=== PATIENT | male | born 1940 | race Caucasian/White ===

== ENCOUNTER 2016-04-01 18:15 | Observation (INO) | payer OTHER ==
[~2016-04-01] VITALS: Ht 182.9 cm; Wt 98.4 kg
[~2016-04-01 18:15] MED LIST changes: -CETI10TA84 PO; -FINA5TAB PO; -LOSA50TA6 PO; -SPRIN/30 INH
[2016-04-01 19:19] LABS: BASO % 0.4 %; BASO ABS # 0.04 K/uL (0-0.2); COMPLETE YES; EOS % 3.7 %; HEMATOCRIT 45.5 % (42-52); IG% 0.2 %; LYMPH ABS # 1.27 K/uL (1.2-3.4); MEAN CELL VOLUME 95.6 fL (80-100); MEAN CORPUSCULAR HEMOGLOBIN 32.1 pg (25-34); MEAN CORPUSCULAR HGB CONC 33.6 g/dl (32-36); MEAN PLATELET VOLUME 10.4 fL (7.4-10.4); MONO % 11.5 %; NEUT % 70.2 %; PLATELET COUNT 156 K/uL (130-400); RED BLOOD COUNT 4.76 M/uL (4.7-6.1); WHITE BLOOD COUNT 9.07 K/uL (4.8-10.8)
[2016-04-01] MEDS ORDERED: CETI10TA84 PO (19:20)
[2016-04-01] MEDS ORDERED: SPRIN/30 INH (19:20)
[2016-04-01] MEDS ORDERED: LOSA50TA6 PO (19:20)
[2016-04-01] MEDS ORDERED: FINA5TAB PO (19:20)
[2016-04-01 19:32] LABS: INR 1.1 (0.9-1.1); PARTIAL THROMBOPLASTIN RATIO 1.1; PROTHROMBIN TIME (PATIENT) 11.4 SECONDS (9.0-12.0)
[2016-04-01 19:57] LABS: ALKALINE PHOSPHATASE 79 U/L (45-117); ALT/SGPT 32 U/L (12-78); BLOOD UREA NITROGEN 25 mg/dl (7-18); BUN/CREATININE RATIO 17.6 (10-20); CALCIUM 8.7 mg/dl (8.5-10.1); CARBON DIOXIDE 24 mmol/L (21-32); CHLORIDE 110 mmol/L (98-107); GLUCOSE 82 mg/dl (70-99); SODIUM 143 mmol/L (136-145)
[2016-04-01 20:57] LABS: POTASSIUM 4.3 mmol/L (3.5-5.1)
[2016-04-01] MEDS ORDERED: ALUMINUM/MAGNESIUM/SIMETH (MAALOX MAX) 30 ML UDC PO PRN (21:15)
[2016-04-01] MEDS ORDERED: NITROGLYCERIN 0.4 MG SL PER TAB CHARGE SL PRN (21:15)
[2016-04-01] MEDS ORDERED: ONDANSETRON INJ 2 MG/ML 2 ML VIAL IV PRN (21:15)
[2016-04-01] MEDS ORDERED: ACETAMINOPHEN 325 MG TAB PO PRN (21:15)
[2016-04-01] MEDS ORDERED: MoRPHine SULFATE 2 MG/ML CARP IV PRN (21:15)
[2016-04-01] MEDS ORDERED: GI COCKTAIL PO SCH (21:15)
[2016-04-01] MEDS ORDERED: MAGNESIUM HYDROXIDE SUSP 30 ML UDC PO PRN (21:15)
--- NOTE | 2016-04-01 21:53 | EMERGENCY ROOM VISIT NOTE ---
History Report prepared by Vasyl: Gloria Jarquin Under the Supervision of: Dr. Mike Viera M.D. First contact with patient: 18:36 Chief Complaint: ABNORMAL DIAGNOSTIC TESTING Stated Complaint: ABNORMAL EKG History of Present Illness The patient is a 75 year old male who presents to the Emergency Room with complaints of worsening fatigue that started last night. He is accompanied by his . He saw his PCP earlier today and had an abnormal EKG and was referred to the ED for further evaluation. He states "I seem to have lost all my power" noting he feels extremely weak. This morning the patient woke up around 0500 and fed his cat. He then went back to bed and fell asleep until his awoke around 0800, which he states is unusual for him. He also complains of shortness of breath, chest discomfort and bilateral shoulder pain. He describes the chest pain as feeling like "indigestion" and burning. He denies the chest pain being worsened by exertion or eating, or being accompanied by diaphoresis. He notes he had his neck fused several years ago but complains of bilateral shoulder pain. He states that he has had problems with his shoulders in the past and it is separate from his chest pain. He denies any dysuria, hematuria, melena or hematochezia. His states he has been coughing a lot recently and the patient complains of a sore throat. The patient does have a history of a previous IA and reports he has had cardiac stents placed in the past. Source of History: patient, spouse/significant other () Onset: last night Position: other (global) Quality: other (dyspnea) Timing: worsening Associated Symptoms: + SOB, + chest pain, + cough, + sorethroat, No abdominal pain, No diaphoresis, No hematochezia, No melena, No urinary symptoms Review of Systems See HPI for pertinent positives & negatives. A total of 10 systems reviewed and were otherwise negative. Past Medical & Surgical Medical Problems: (1) Chest pain (2) Electrocardiogram abnormal (3) History of IA (myocardial infarction) Surgical Problems: (1) History of heart artery stent Social History Smoking Status: Former Smoker Alcohol Use: none Drug Use: none Marital Status: Housing Status: lives with family Occupation Status: employed Current/Historical Medications Scheduled Aspirin Enteric Coated (Ecotrin Or Generic), 81 MG PO DAILY Atorvastatin (Lipitor), 80 MG PO DAILY Cetirizine (Zyrtec), 10 MG PO DAILY Finasteride (Proscar), 5 MG PO DAILY Fish Oil ([place]-3), 1 CAP PO DAILY Gabapentin (Neurontin), 200 MG PO HS Losartan Potassium (Cozaar), 50 MG PO DAILY Metoprolol Succ (Toprol Xl) (Toprol-Xl ), 100 MG PO HS Multivitamin (Multivitamin), 1 TAB PO DAILY Nitroglycerin (Nitrostat), 0.3 MG UT PRN Omeprazole (Prilosec), 20 MG PO DAILY Tiotropium [place] (Spiriva Handihaler), 1 CAP INH DAILY Allergies Coded Allergies: No Known Allergies (Unverified , 04/01/16) Physical Exam Vital Signs Date Time Temp Pulse Resp B/P Pulse Ox O2 Delivery O2 Flow Rate FiO2 04/01/16 20:09 94 Room Air 04/01/16 20:06 59 20 147/88 93 Room Air 04/01/16 19:19 62 04/01/16 18:33 36.7 60 20 185/82 92 Room Air Physical Exam Constitutional: Vital signs reviewed. Eyes: Pupils are equal round reactive to light. Conjunctiva are noninjected. ENT: Pharynx is clear without erythema or exudate. Mucous membranes are moist. Neck supple without meningeal signs. Respiratory: Clear to auscultation bilaterally. Breath sounds are equal bilaterally. Cardiovascular: Regular rate and rhythm. No rubs or gallops. GI: Soft, nondistended and nontender. Bowel sounds are present. Musculoskeletal: No peripheral edema. No lower extremity tenderness. Integumentary: No cyanosis. Neurological: The patient is awake and alert. No focal deficits. Psychiatric: Normal affect. Medical Decision & Procedures Laboratory Results 04/01/16 19:00 Red Blood Count 4.76, Mean Corpuscular Volume 95.6, Mean Corpuscular Hemoglobin 32.1, Mean Corpuscular Hemoglobin Concent 33.6, Mean Platelet Volume 10.4, Neutrophils (%) (Auto) 70.2, Lymphocytes (%) (Auto) 14.0, Monocytes (%) (Auto) 11.5, Eosinophils (%) (Auto) 3.7, Basophils (%) (Auto) 0.4, Neutrophils # (Auto ) 6.36, Lymphocytes # (Auto) 1.27, Monocytes # (Auto) 1.04, Eosinophils # (Auto ) 0.34, Basophils # (Auto) 0.04 04/01/16 19:00 04/01/16 20:32 Test 04/01/16 19:00 04/01/16 19:09 04/01/16 20:32 04/01/16 21:09 White Blood Count 9.07 K/uL (4.8-10.8) Red Blood Count 4.76 M/uL (4.7-6.1) Hemoglobin 15.3 g/dL (14.0-18.0) Hematocrit 45.5 % (42-52) Mean Corpuscular Volume 95.6 fL (80-100) Mean Corpuscular Hemoglobin 32.1 pg (25-34) Mean Corpuscular Hemoglobin Concent 33.6 g/dl (32-36) Platelet Count 156 K/uL (130-400) Mean Platelet Volume 10.4 fL (7.4-10.4) Neutrophils (%) (Auto) 70.2 % Lymphocytes (%) (Auto) 14.0 % Monocytes (%) (Auto) 11.5 % Eosinophils (%) (Auto) 3.7 % Basophils (%) (Auto) 0.4 % Neutrophils # (Auto) 6.36 K/uL (1.4-6.5) Lymphocytes # (Auto) 1.27 K/uL (1.2-3.4) Monocytes # (Auto) 1.04 K/uL (0.11-0.59) Eosinophils # (Auto) 0.34 K/uL (0-0.5) Basophils # (Auto) 0.04 K/uL (0-0.2) RDW Standard Deviation 47.2 fL (36.4-46.3) RDW Coefficient of Variation 13.5 % (11.5-14.5) Immature Granulocyte % (Auto) 0.2 % Immature Granulocyte # (Auto) 0.02 K/uL (0.00-0.02) Prothrombin Time 11.4 SECONDS (9.0-12.0) Prothromb Time International Ratio 1.1 (0.9-1.1) Activated Partial Thromboplast Time 29.2 SECONDS (21.0-31.0) Partial Thromboplastin Ratio 1.1 Anion Gap 9.0 mmol/L (3-11) Est Creatinine Clear Calc Drug Dose 54.6 ml/min Estimated GFR () 56.2 Estimated GFR (Non- 48.5 BUN/Creatinine Ratio 17.6 (10-20) Calcium Level 8.7 mg/dl (8.5-10.1) Total Bilirubin 0.5 mg/dl (0.2-1) Alanine Aminotransferase (ALT/SGPT) 32 U/L (12-78) Alkaline Phosphatase 79 U/L (45-117) Total Protein 7.0 gm/dl (6.4-8.2) Albumin 3.5 gm/dl (3.4-5.0) Bedside Troponin I 0.000 ng/ml (0-0.045) Direct Bilirubin 0.1 mg/dl (0-0.2) Aspartate Amino Transf (AST/SGOT) 28 U/L (15-37) Laboratory results as reviewed by me. ECG Indication: back/shoulder pain, weakness Rate (beats per minute): 61 Rhythm: normal sinus (normal sinus rhythm) Findings: T-wave inversion (Lateral), no ectopy Comparison ECG Date: Previous EKG performed in February 2011 showed T wave inversions in AVL ED Course 1841: The patient was evaluated in room B4B. A complete history and physical exam was performed. 1934: I reevaluated the patient. He is resting comfortably. I discussed my plan for him to remain in the hospital for further evaluation and management and he verbalized complete understanding and agreement. 1942: I discussed the patient's case with Dr. Mtz, [facility] [place] Hospitalist. The patient will be further evaluated. Medical Decision This is a 75-year-old male who presents with increased shortness of breath, chest discomfort and an abnormal EKG. Differential diagnosis includes unstable angina, IA, GERD, anemia, pleurisy. I did perform a limited focused review of portions of the patient's old chart on the electronic medical record. The patient had a chest X-Ray at 1630 today. It was unremarkable. I did evaluate the patient as noted above. The patient is presenting here with increased shortness of breath and chest discomfort. He states the chest discomfort as a burning sensation which she has intermittently for about a week. Last time he had this chest discomfort was just prior to arrival here. He is currently not having any symptoms. IV access was established. The patient was placed on a continuous child monitor. I did order and personally review the patient's 12-lead EKG and chest x-ray as described above. He does appear to have T-wave inversions in the lateral and high lateral leads. These are new when comparing this to the old EKG. I did order and review the patient' s blood work as noted in the electronic medical record. Troponin is negative. I did discuss the test results with the patient and his . I did recommend hospitalization for repeat cardiac enzymes given his symptoms and cardiac history. I did discuss the case with the hospitalist and case consultant. Consults Time Called: 1939 Consulting Physician: Dr. Mtz, [facility] [place] Hospitalist Returned Call: 1942 I discussed the patient's case with Dr. Mtz, [facility] [place] Hospitalist. The patient will be further evaluated. Impression Primary Impression: Acute chest pain Additional Impression: Abnormal EKG Scribe Attestation The scribe's documentation has been prepared under my direct and personally reviewed by me in its entirety. I confirm that the note above accurately reflects all work, treatment, procedures, and medical decision making performed by me. Departure Information Dispostion Being Evaluated By Hospitalist Referrals Arvidn Stern M.D. (PCP) Patient Instructions [facility] Problem Qualifiers
[2016-04-01] MEDS ORDERED: ALUMINUM/MAGNESIUM SUSP 18 ML, LIDOCAINE HCL 2% VISCOUS SOLN 6 ML, BARCODE IDENTIFIER 1 EA PO STA ×2 (22:07)
[2016-04-01] MEDS ORDERED: AZITHROMYCIN IV 500 MG in DEXTROSE 5% 250ML 250 ML IV STA (22:11)
[2016-04-01 22:16] VITALS: BP 166/87; PULSE 63; TEMP 36.7; O2SAT 93; Ht 182.9 cm; Wt 98.4 kg
[2016-04-01] MEDS: GUAIFENESIN 200 MG TAB PO SCH (22:40)
[2016-04-01] MEDS: NITROGLYCERIN OINT 2% 1GM PACKET EXT SCH (22:40)
[2016-04-01] MEDS ORDERED: IV FLUIDS COMPLETED PRN (23:45)
[2016-04-02] VITALS (8 sets, daily range): BP systolic 137–154; BP diastolic 81–88; PULSE 55–73; TEMP 35.9–36.5; O2SAT 90–95
[2016-04-02] MEDS: GUAIFENESIN 200 MG TAB PO SCH ×3 (00:50→10:00)
--- NOTE | 2016-04-02 03:11 | History and Physical ---
History & Physical Date & Time of Service: Apr 02, 2016 at 02:54 Chief Complaint: Chest Pain, Electrocardiogram Abnormal Primary Care Physician: Arvind Stern M.D. History of Present Illness Source: patient, family This is a 75 yo m that is presenting to us with epigastric discomfort and a significant CVS PMHx. He has a history of a stent in 2010. he was seen here and a stent was placed in the mid left circ. The LAD remained open at 50% and the mid RCA at 40%. His last echo was in 2011 and unknown when his last stress test was, he thinks two years prior. Today, he was suffering from an epigastric discomfort that did not radiate. He stated it felt like gas but he also has this ache like shoulder pain which is in bilat shoulder and intermittent. He has felt like he is slightly weaker than his BL. He denies any diaphoresis, fever, SOB, change in BM, syncope. he does note that he has a chronic cough but feels that he has increased yellow phlegm without hemoptysis. Because of his history it was decided that the patient would be admitted for chest pain evaluation. echo 2011: LV borderline dilation EF 50-55% Mild- mod ant hypokinesis mild inf hypokinesis Past Medical/Surgical History DE Cardiac stent placement Peripheral neuropathy Cervical fusion left knee arthroscopy COPD GERD Dyslipidemia Family History No pertinent family history Social History Smoking Status: Former Smoker Smokeless Tobacco Use: No Alcohol Use: none Drug Use: none Marital Status: Housing status: lives with family Occupational Status: employed Immunizations History of Influenza Vaccine: Yes Influenza Vaccine Date: Jan 09, 2011 History of Tetanus Vaccine?: Unknown History of Pneumococcal: Yes History of Hepatitis B Vaccine: No Multi-Drug Resistant Organisms History of MDRO: No Allergies Coded Allergies: No Known Allergies (Unverified , 04/01/16) Home Medications Scheduled Aspirin Enteric Coated (Ecotrin Or Generic), 81 MG PO DAILY Atorvastatin (Lipitor), 80 MG PO DAILY Cetirizine (Zyrtec), 10 MG PO DAILY Finasteride (Proscar), 5 MG PO DAILY Fish Oil ([place]-3), 1 CAP PO DAILY Gabapentin (Neurontin), 200 MG PO HS Losartan Potassium (Cozaar), 50 MG PO DAILY Metoprolol Succ (Toprol Xl) (Toprol-Xl ), 100 MG PO HS Multivitamin (Multivitamin), 1 TAB PO DAILY Nitroglycerin (Nitrostat), 0.3 MG UT PRN Omeprazole (Prilosec), 20 MG PO DAILY Tiotropium [place] (Spiriva Handihaler), 1 CAP INH DAILY Review of Systems Constitutional: No fever Eyes: No worsening of vision ENT: No hearing loss Respiratory: + cough, + sputum, No dyspnea at rest, No dyspnea on exertion, No shortness of breath, No wheezing Cardiovascular: + chest pain Abdomen: No constipation, No diarrhea, No nausea, No pain, No vomiting Musculoskeletal: No joint pain, No muscle pain Genitourinary - Male: No dysuria, No hematuria Neurologic: + weakness, No balance problems, No numbness/tingling Endocrine: + fatigue Integumentary: No rash Physical Exam Vital Signs Date Time Temp Pulse Resp B/P Pulse Ox O2 Delivery O2 Flow Rate FiO2 04/02/16 00:00 94 Room Air 04/01/16 22:16 36.7 63 20 166/87 93 Room Air 04/01/16 21:57 60 20 155/85 96 Room Air 04/01/16 20:09 94 Room Air 04/01/16 20:06 59 20 147/88 93 Room Air 04/01/16 19:19 62 04/01/16 18:33 36.7 60 20 185/82 92 Room Air General Appearance: WD/WN, no apparent distress Head: normocephalic, atraumatic Eyes: normal inspection ENT: normal ENT inspection Neck: supple Respiratory/Chest: no respiratory distress, no accessory muscle use, + decreased breath sounds, + pertinent finding (poor airmovement throughout, occasional wheeze) Cardiovascular: regular rate, rhythm, no murmur Abdomen/GI: normal bowel sounds, non tender, soft Back: normal inspection Extremities/Musculoskelatal: normal inspection, no calf tenderness, no pedal edema, + pertinent finding (decreased sensation to bilat LE which is BL for patient) Neurologic/Psych: alert Skin: normal color, warm/dry, no rash Lymphatic: no adenopathy Diagnostics Laboratory Results Results Past 24 Hours Test 04/01/16 19:00 04/01/16 19:09 04/01/16 20:32 04/01/16 21:55 Range/Units White Blood Count 9.07 4.8-10.8 K/uL Red Blood Count 4.76 4.7-6.1 M/uL Hemoglobin 15.3 14.0-18.0 g/dL Hematocrit 45.5 42-52 % Mean Corpuscular Volume 95.6 80-100 fL Mean Corpuscular Hemoglobin 32.1 25-34 pg Mean Corpuscular Hemoglobin Concent 33.6 32-36 g/dl Platelet Count 156 130-400 K/uL Mean Platelet Volume 10.4 7.4-10.4 fL Neutrophils (%) (Auto) 70.2 % Lymphocytes (%) (Auto) 14.0 % Monocytes (%) (Auto) 11.5 % Eosinophils (%) (Auto) 3.7 % Basophils (%) (Auto) 0.4 % Neutrophils # (Auto) 6.36 1.4-6.5 K/uL Lymphocytes # (Auto) 1.27 1.2-3.4 K/uL Monocytes # (Auto) 1.04 0.11-0.59 K/uL Eosinophils # (Auto) 0.34 0-0.5 K/uL Basophils # (Auto) 0.04 0-0.2 K/uL RDW Standard Deviation 47.2 36.4-46.3 fL RDW Coefficient of Variation 13.5 11.5-14.5 % Immature Granulocyte % (Auto) 0.2 % Immature Granulocyte # (Auto) 0.02 0.00-0.02 K/uL Prothrombin Time 11.4 9.0-12.0 SECONDS Prothromb Time International Ratio 1.1 0.9-1.1 Activated Partial Thromboplast Time 29.2 21.0-31.0 SECONDS Partial Thromboplastin Ratio 1.1 Sodium Level 143 136-145 mmol/L Potassium Level 4.3 3.5-5.1 mmol/L Chloride Level 110 98-107 mmol/L Carbon Dioxide Level 24 21-32 mmol/L Anion Gap 9.0 3-11 mmol/L Blood Urea Nitrogen 25 7-18 mg/dl Creatinine 1.40 0.60-1.40 mg/dl Est Creatinine Clear Calc Drug Dose 54.6 ml/min Estimated GFR () 56.2 Estimated GFR (Non- 48.5 BUN/Creatinine Ratio 17.6 10-20 Random Glucose 82 70-99 mg/dl Calcium Level 8.7 8.5-10.1 mg/dl Total Bilirubin 0.5 0.2-1 mg/dl Direct Bilirubin 0.1 0-0.2 mg/dl Aspartate Amino Transf (AST/SGOT) 28 15-37 U/L Alanine Aminotransferase (ALT/SGPT) 32 12-78 U/L Alkaline Phosphatase 79 45-117 U/L Total Protein 7.0 6.4-8.2 gm/dl Albumin 3.5 3.4-5.0 gm/dl Bedside Troponin I 0.000 0-0.045 ng/ml Procalcitonin < 0.05 0-0.5 ng/mL Diagnostic Radiology CHEST 2 VIEWS ROUTINE CLINICAL HISTORY: SOB COMPARISON STUDY: 11/10/2015 FINDINGS: The cardiac and mediastinal contours are normal. There is no evidence of focal pulmonary consolidation. There is no evidence of failure. No pleural effusions are visualized.[There is minor basilar atelectasis/scarring. IMPRESSION: No active disease in the chest. EKG NSR no ectopic beats T wave inversions in lateral leads Impression Assessment and Plan This is a 75 yo m that is presenting to us with chest pain which is concerning considering the patient's PMHx- DE with stent placement Chest pain NYD - trend troponin - tele admission - npo after midnight - stress echo - nitropaste EKG in am Acute on Chronic COPD exacerbation bacterial vs viral - axithro x1 dose - if procalcitonin <0.05 consider not continuing - cont Spiriva - Pulmicort, duonebs and Guaifenesin Hyper cholesterolemia - cont simvastatin BPH - cont finasteride Peripheral neuropathy - cont gabapentin HTN - cont metoprolol and losartan DVT Prophylaxis - SCD FULL CODE Advanced Directives Existing Living Will: Yes 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 Y/N: Yes Risk Level: Moderate Given or contraindicated: SCD's Social Service Consult None Apply Note Total Time: Critical Care 30 - 74 minutes Additional Copies To Arvind Stern M.D. Assessment and Plan Attending Addendum: I have physically seen and examined this patient, have directed their medical care, have supervised the medical residents activities, and agree with the H&P as noted above, with the following changes: NONE The patient is awake, well-developed and adequately nourished, alert and oriented 3, normocephalic and atraumatic, lying in bed and in no acute distress. HEENT--PERRL, EOMI, mucous membranes and oropharynx dry. Neck--supple, no JVD or bruits, thyroid normal, trachea midline, no adenopathy. Heart--normal S1 and S2, no extra beats, no murmurs, rubs or gallops. Lungs--clear bilaterally with good air movement, no respiratory distress, no accessory muscle use. Abdomen--normal bowel sounds and soft, nontender and nondistended, no hernias or masses, no organomegaly. Extremities--no cyanosis, clubbing or edema. There are good distal pulses b/l. Dermatologic--normal skin turgor, normal color, warm and dry, no abnormal lymph nodes, no rash. Neurologic--cranial nerves II through XII grossly intact, motor and sensory examination normal. Rheumatologic--normal range of motion, nontender, muscles and joints. Psychiatric--normal affect. Assessment and Plan: Coronary artery disease/history of coronary artery stent/hypertension/abnormal EKG--admitted to the telemetry unit, for serial cardiac enzymes, cardiac rhythm monitoring and a 2-D echocardiogram with Dopplers. Continue enteric-coated aspirin 81 mg by mouth daily, losartan 50 mg by mouth daily, metoprolol succinate 100 mg by mouth at bedtime, nitroglycerin sublingual when necessary, and add Nitropaste 1 inch to anterior chest wall every 6 hours. BPH--continue finasteride 5 mg by mouth daily. Hypercholesterolemia--continue atorvastatin 80 mg by mouth daily. GERD--continue omeprazole 20 mg by mouth daily. COPD--continue Spiriva HandiHaler 1 inhalation every morning. Continue gabapentin 200 mg by mouth at bedtime.
[2016-04-02] MEDS: NITROGLYCERIN OINT 2% 1GM PACKET EXT SCH ×2 (04:23→10:00)
[2016-04-02 06:29] LABS: HEMATOCRIT 43.6 % (42-52); MEAN CELL VOLUME 95.4 fL (80-100); MEAN CORPUSCULAR HEMOGLOBIN 32.2 pg (25-34); MEAN CORPUSCULAR HGB CONC 33.7 g/dl (32-36); MEAN PLATELET VOLUME 9.9 fL (7.4-10.4); PLATELET COUNT 126 K/uL (130-400); RED BLOOD COUNT 4.57 M/uL (4.7-6.1); WHITE BLOOD COUNT 8.48 K/uL (4.8-10.8)
[2016-04-02] MEDS: ALBUT/IPRATROP 3MG/0.5MG NEB 3 ML VIAL INH SCH ×2 (06:57→11:19)
[2016-04-02 07:02] LABS: BLOOD UREA NITROGEN 20 mg/dl (7-18); BUN/CREATININE RATIO 16.7 (10-20); CALCIUM 8.4 mg/dl (8.5-10.1); CARBON DIOXIDE 28 mmol/L (21-32); CHLORIDE 107 mmol/L (98-107); GLUCOSE 89 mg/dl (70-99); POTASSIUM 3.7 mmol/L (3.5-5.1); SODIUM 141 mmol/L (136-145)
[2016-04-02] MEDS ORDERED: BUDESONIDE 0.5 MG/2 ML VIAL (PULMICORT) INH SCH (08:00)
--- NOTE | 2016-04-02 08:04 | DIAGNOSTIC IMAGING REPORT ---
CHEST ONE VIEW PORTABLE CLINICAL HISTORY: COPD dyspnea COMPARISON STUDY: 04/01/2016 FINDINGS: Lungs remain generally clear. Slightly progressive left basilar atelectatic change. Lungs otherwise appear clear. Mild stable cardiomegaly. IMPRESSION: Slightly progressive left basilar atelectatic change. Lungs otherwise remain clear Electronically signed by: Epi Huizar M.D. 04/02/2016 8:02 AM Dictated Date/Time: 04/02/2016 8:01 AM
[2016-04-02] MEDS ORDERED: PANTOprazole SOD 40 MG TAB PO SCH (09:00)
[2016-04-02] MEDS ORDERED: CETIRIZINE HCL 10 MG TAB PO SCH (09:00)
[2016-04-02] MEDS ORDERED: FINASTERIDE 5 MG TAB PO SCH (09:00)
[2016-04-02] MEDS ORDERED: ATORVASTATIN 40 MG TAB PO SCH (09:00)
[2016-04-02] MEDS ORDERED: OMEGA-3 (PURIFIED FISH OIL) 1 GM CAP PO SCH (09:00)
[2016-04-02] MEDS ORDERED: ASPIRIN 81 MG ECTAB PO SCH (09:00)
[2016-04-02] MEDS ORDERED: MULTIVITAMIN TAB PO SCH (09:00)
[2016-04-02] MEDS ORDERED: LOSARTAN POTASSIUM 50 MG TAB PO SCH (09:00)
[2016-04-02] MEDS ORDERED: TIOTROPIUM BROMIDE 5 PUFF/90 MCG INH INH SCH (09:00)
--- NOTE | 2016-04-02 13:02 | EXERCISE STRESS ECHO ---
*NOTICE TO RECEIVING LIBERTARIAN AGENCY This information is strictly Confidential and protected under [place] law. [place] law prohibits you from making any further disclosure of this information unless further disclosure is expressly permitted by the written consent of the person to whom it pertains or is authorized by law. A general authorization for the release of medical or other information is not sufficient for this purpose. Hospital accepts no responsibility if the information is made available to any other person, INCLUDING THE PATIENT. Interpretation Summary * Name: USMAN CORREIA Study Date: 04/02/2016 09:35 AM BP: 134/90 mmHg * Patient Location: [facility] HR: 60 * : 1940 (M/d/yyyy) Gender: Male Height: 72 in * Age: 75 yrs Ethnicity: DE Weight: 216 lb * Ordering Physician: Estela Lucero * Referring Physician: TESSA * Performed By: Paulina Garces RDCS * * Reason For Study: CHEST PAIN * BSA: 2.2 m2 * History: CHEST PAIN * Low normal resting LV systolic function. * Mild left atrial dilatation. * Mild concentric left ventricle hypertrophy. * Mild aortic root dilatation. * No significant valvular abnormalities noted. * This was a normal stress echocardiogram. * -- Conclusions -- * Aortic valve sclerosis moderate, without significant aortic valvular stenosis. Procedure Details * ECHOEX, CPT #93104 * A contrast injection of Definity was performed to improve assessment of LV function. * Contrast was injected into an intravenous site in the left arm. * One vial of Definity ultrasound contrast was diluted in normal saline to a total volume of 10 ml. A total of '4' ml of solution was administered during imaging. * Lot # [id number] of Definity utilized for procedure. * Expiration date 1 APR 10. * The attending nurse who injected the contrast agent was TED WADE RN. Left Ventricle * The left ventricle is normal in size. * There is mild concentric left ventricular hypertrophy. * Ejection Fraction = 50-55%. * Left ventricular systolic function is normal. * Resting wall motion: Normal. Stress wall motion: Appropriate increase in Left ventricular systolic function and decrease in cavity size. No stress induced segmental wall motion abnormalities. * The left ventricular ejection fraction increases normally with stress. The left ventricular end-systolic cavity size reduces post-stress (normal response). The left ventricular wall motion with stress is normal. * No regional wall motion abnormalities noted. Right Ventricle * The right ventricle is normal in size and function. Atria * The left atrium is mildly dilated. * Right atrial size is normal. Mitral Valve * The mitral valve is normal. * There is no mitral valve stenosis. * There is trace mitral regurgitation. Tricuspid Valve * The tricuspid valve is not well visualized, but is grossly normal. * There is no tricuspid stenosis. * Significant tricuspid regurgitation is absent. Aortic Valve * The aortic valve is trileaflet. * The aortic valve opens well. * Aortic valve sclerosis moderate, without significant aortic valvular stenosis. * Aortic stenosis is absent. * No aortic regurgitation is present. Pulmonic Valve * The pulmonic valve is not well visualized. * There is no significant pulmonary regurgitation. Great Vessels * Mild aortic root dilatation. Pericardium * There is no pericardial effusion. Stress Parameters * The baseline ECG displays normal sinus rhythm. * Inverted to flat T-waves leads 1, aVL, V5 and V6. * The stress ECG response was normal * Occasional premature supraventricular and ventricular beats in the recovery phase. One supraventricular triplet. * The stress portion of this study was personally supervised by the undersigned interpreting physician. * Rest heart rate was '60' BPM. * Rest blood pressure was '134/90' * Maximum heart rate achieved was 126 bpm. * Maximum heart rate was 87 % of maximum age-predicted heart rate. * Maximum blood pressure was '201/102' * Total exercise time was '4:02' * Maximum exercise MET level achieved was '5.80' METS * Maximum treadmill speed was '2.50' miles per hour. * Maximum treadmill elevation was '12.00'% grade. * Exercise was terminated due to 'dyspnea' * No chest pain during or following exercise. * The patient exhibited a hypertensive response with stress. MMode 2D Measurements and Calculations IVSd 1.1 cm IVSs 1.7 cm LVIDd 4.6 cm LVIDs 3.5 cm LVPWd 1.2 cm LVPWs 1.7 cm IVS/LVPW 0.95 FS 25.3 % EDV(Teich) 98.8 ml ESV(Teich) 49.3 ml EF(Teich) 50.1 % EDV(cubed) 99.2 ml ESV(cubed) 41.3 ml EF(cubed) 58.4 % % IVS thick 51.3 % % LVPW thick 43.7 % LV mass(C)d 193.1 grams LV mass(C)dI 87.7 grams/m\S\2 LV mass(C)s 230.7 grams LV mass(C)sI 104.8 grams/m\S\2 SV(Teich) 49.4 ml SI(Teich) 22.5 ml/m\S\2 SV(cubed) 57.9 ml SI(cubed) 26.3 ml/m\S\2 Ao root diam 4.0 cm Ao root area 12.8 cm\S\2 LA dimension 4.2 cm LA/Ao 1.0 LVAd ap4 28.7 cm\S\2 LVLd ap4 8.1 cm EDV(MOD-sp4) 86.4 ml EDV(sp4-el) 86.1 ml LVAs ap4 19.0 cm\S\2 LVLs ap4 7.0 cm ESV(MOD-sp4) 46.8 ml ESV(sp4-el) 43.6 ml EF(MOD-sp4) 45.9 % EF(sp4-el) 49.4 % SV(MOD-sp4) 39.6 ml SI(MOD-sp4) 18.0 ml/m\S\2 SV(sp4-el) 42.5 ml SI(sp4-el) 19.3 ml/m\S\2 Doppler Measurements and Calculations MV E max olive 63.5 cm/sec MV A max olive 57.7 cm/sec MV E/A 1.1 MV dec time 0.21 sec Ao V2 max 122.5 cm/sec Ao max PG 6.0 mmHg Ao max PG (full) 1.9 mmHg LV V1 max PG 4.1 mmHg LV V1 max 101.4 cm/sec
--- NOTE | 2016-04-02 13:31 | Discharge Instructions ---
Discharge Instructions Admission Reason for Admission: Chest Pain, Electrocardiogram Abnormal Discharge Discharge Diagnosis / Problem: Chest discomfort Discharge Goals Goal(s): Improve disease control Activity Recommendations Activity Limitations: resume your previous activity . Instructions / Follow-Up Instructions / Follow-Up Follow up with your PCP as arranged - Dr. Stern on TuesdayApril 09 at 10:00 am. Current Hospital Diet Patient's current hospital diet: AHA Diet (Heart Healthy) Discharge Diet Recommended Diet: AHA Diet (Heart Healthy) Procedures Procedures Performed: Stress echocardiogram- Normal Pending Studies Studies pending at discharge: no Medical Emergencies . Who to Call and When: Medical Emergencies: If at any time you feel your situation is an emergency, please call 911 immediately. . Non-Emergent Contact Non-Emergency issues call your: Primary Care Provider, Trick Rodeo Rider Call Non-Emergent contact if: you have a fever, your pain is not controlled, your pain is worsening, your pain is unusual for you, your pain is concerning you . . "Provider Documentation" section prepared by Soraay Naqvi. VTE Core Measure Inpt VTE Proph given/why not?: SCD's
--- NOTE | 2016-04-02 15:18 | Discharge Summary ---
Discharge Summary Admission Date: Apr 01, 2016 at 21:23 Discharge Date: Apr 02, 2016 Discharge Disposition: Home Principal Diagnosis: Chest discomfort Immunizations: Have You Had Influenza Vaccine: Yes Influenza Vaccine Date: Jan 09, 2011 History of Tetanus Vaccine?: Unknown History of Pneumococcal: Yes History of Hepatitis B Vaccine: No Procedures: Stress Echo 04/02/16: Normal (Soraya Naqvi MD) Medication Reconciliation Continued Medications: Aspirin Enteric Coated (Ecotrin Or Generic) 81 Mg Tab 81 MG PO DAILY, TAB Atorvastatin (Lipitor) 80 Mg Tab 80 MG PO DAILY, 0 Refills Cetirizine (Zyrtec) 10 Mg Tab 10 MG PO DAILY, TAB Finasteride (Proscar) 5 Mg Tab 5 MG PO DAILY, TAB Fish Oil ([place]-3) Oil 1 CAP PO DAILY, OIL Gabapentin (Neurontin) 100 Mg Cap 200 MG PO HS, 0 Refills Losartan Potassium (Cozaar) 50 Mg Tab 50 MG PO DAILY, TAB Metoprolol Succ (Toprol Xl) (Toprol-Xl ) 100 Mg Tabcr 100 MG PO HS, 0 Refills Multivitamin (Multivitamin) Tab 1 TAB PO DAILY, 0 Refills Nitroglycerin (Nitrostat) 0.3 Mg Tab 0.3 MG UT PRN, 0 Refills Omeprazole (Prilosec) 20 Mg Capcr 20 MG PO DAILY, 0 Refills Tiotropium [place] (Spiriva Handihaler) 30 Puff/540 Mcg Aerp 1 CAP INH DAILY, INHALER Discharge Exam Review of Systems: Constitutional: No chills, No fever, No sweats, No weakness, No weight loss Eyes: No worsening of vision ENT: No hearing loss Respiratory: No cough, No dyspnea at rest, No dyspnea on exertion, No shortness of breath, No sputum, No wheezing Cardiovascular: No chest pain Abdomen: No constipation, No diarrhea, No nausea, No pain, No vomiting Musculoskeletal: No joint pain Genitourinary - Male: No dysuria, No hematuria, No urinary frequency Neurologic: No memory loss Psychiatric: No depression symptoms Endocrine: No fatigue Hematologic / Lymphatic: No abnormal bleeding/bruising Integumentary: No rash Physical Exam: General Appearance: WD/WN, no apparent distress Eyes: normal inspection, PERRL ENT: hearing grossly normal Neck: supple, no JVD Respiratory/Chest: lungs clear, normal breath sounds, no respiratory distress Cardiovascular: regular rate, rhythm, no murmur, normal peripheral pulses Abdomen / GI: non tender, soft Extremities: no calf tenderness, no pedal edema Neurologic/Psychiatric: alert, normal mood/affect, normal reflexes, oriented x 3 Skin: no rash (Soraya Naqvi MD) Review of Systems: Constitutional: No fever Respiratory: No cough, No shortness of breath Cardiovascular: No chest pain Physical Exam: General Appearance: no apparent distress Respiratory/Chest: lungs clear, no respiratory distress Cardiovascular: regular rate, rhythm Neurologic/Psychiatric: alert, oriented x 3 (Heather Oh M.D.) Hospital Course Mr Andre is a 75 yo M with history of cardiac stent in 2010, who presented with chest pain after shovelling snow, and was strongly encouraged by his to come into the hospital. He is compliant with his home medication regime. He reported it as an epigastric discomfort that felt like gas, and bilateral intermittent shoulder pain. His cardiac enzymes were negative x 3. Chest pain - Troponin negative - No events on cardiac/vascular sonographer - Stress echo: - * Low normal resting LV systolic function. * Mild left atrial dilatation. * Mild concentric left ventricle hypertrophy. * Mild aortic root dilatation. * No significant valvular abnormalities noted. * This was a normal stress echocardiogram. Acute on Chronic COPD exacerbation bacterial vs viral - Received a dose of Azithromycin, had a negative procalcitonin so this was stopped Hyper cholesterolemia - Continued simvastatin BPH - Continued finasteride Peripheral neuropathy - Continued gabapentin HTN - Continued metoprolol and losartan DVT Prophylaxis - SCD FULL CODE Discharged 04/02/16 in good condition Follow up: with PCP, arranged for 04/09/16 Total Time Spent: Greater than 30 minutes This includes examination of the patient, discharge planning, medication reconciliation, and communication with other providers. (Soraya Naqvi MD) I have reviewed the medical record and performed a history and physical examination of this patient today. I have discussed the case with Dr. Naqvi. The above note reflects my findings, conclusions, and recommendations. Total Time Spent: Greater than 30 minutes (34) (Heather Oh M.D.) Discharge Instructions Please refer to the electronic Patient Visit Report (Discharge Instructions) for additional information. (Soraya Naqvi MD) Follow-Up Follow up with Dr. Stern on TuesdayApril 09 at 10:00 am. (Soraya Naqvi MD) Additional Copies To Arvind Stern M.D. Resident Tracking Resident Involvement: Resident Care Provided Care Provided: Adult Hospital Medicine (Soraya Naqvi MD)
[2016-04-02] MEDS ORDERED: METOPROLOL SUCC 50MG EXT REL TAB PO SCH (21:00)
[2016-04-02] MEDS ORDERED: GABAPENTIN 100 MG CAP PO SCH (21:00)
== END 2016-04-02 14:30 | disposition home or self-care (01) ==
LOC: ENRESERVDT → ENRESERVTM → C.EDB 18:17 → C.MED 21:23
PROVIDERS: ADMIT Hospitalist; ATTEND Family Medicine
DX: R07.9 Chest pain, unspecified (principal); I25.2 Old myocardial infarction; G62.9 Polyneuropathy, unspecified; J44.9 Chronic obstructive pulmonary disease, unspecified; K21.9 Gastro-esophageal reflux disease without esophagitis; E78.5 Hyperlipidemia, unspecified; E78.00 Pure hypercholesterolemia, unspecified; N40.0 Benign prostatic hyperplasia without lower urinary tract symptoms; Z87.891 Personal history of nicotine dependence; Z79.82 Long term (current) use of aspirin; Z79.899 Other long term (current) drug therapy; R06.02 Shortness of breath

== ENCOUNTER → 2016-04-01 | Outpatient (CLI) | payer OTHER ==
[~2016-04-01] MED LIST: ASMTWH INH; ASPI81TA21 PO; ATOR-26 PO; AVD5 PO; CETI10TA84 PO; CHOL100010 PO; FINA5TAB PO; FISHOIL PO; FLV1 PO; GABA-112 PO; LOSA50TA6 PO; METO1TAB69 PO; MULT-506 PO; NTRSL3 UT; PLMIN90 IN; PRLSR20 PO; SPRIN/30 INH
--- NOTE | 2016-04-01 16:26 | DIAGNOSTIC IMAGING REPORT ---
CHEST 2 VIEWS ROUTINE CLINICAL HISTORY: SOB COMPARISON STUDY: 11/10/2015 FINDINGS: The cardiac and mediastinal contours are normal. There is no evidence of focal pulmonary consolidation. There is no evidence of failure. No pleural effusions are visualized.[There is minor basilar atelectasis/scarring. IMPRESSION: No active disease in the chest. Electronically signed by: Chetan Vaughan M.D. 04/01/2016 4:24 PM Dictated Date/Time: 04/01/2016 4:24 PM
== END | disposition home or self-care (01) ==
LOC: C.LABPVFM 16:06
PROVIDERS: ATTEND Family Medicine
DX: R06.02 Shortness of breath (principal)

== ENCOUNTER → 2016-06-14 | Outpatient (CLI) | payer OTHER ==
[~2016-06-14] MED LIST changes: -ASMTWH INH; -AVD5 PO; +CETI10TA84 PO; -CHOL100010 PO; +FINA5TAB PO; -FLV1 PO; +LOSA50TA6 PO; +METO100T44 PO; -METO1TAB69 PO; -PLMIN90 IN; +SPRIN/30 INH
[2016-06-14 12:36] LABS: ESTIMATED AVERAGE GLUCOSE 134 mg/dl; HA1C FLAG Normal (Normal)
[2016-06-14 13:11] LABS: ALB/GLOB RATIO 1.1 (0.9-2); ALKALINE PHOSPHATASE 98 U/L (45-117); ALT/SGPT 39 U/L (12-78); AST/SGOT 31 U/L (15-37); BLOOD UREA NITROGEN 20 mg/dl (7-18); CALCIUM 8.9 mg/dl (8.5-10.1); CARBON DIOXIDE 32 mmol/L (21-32); CHLORIDE 105 mmol/L (98-107); CHOLESTEROL 135 mg/dl (0-200); CHOLESTEROL/HDL RATIO 3.5; GLUCOSE 108 mg/dl (70-99); HDL CHOLESTEROL 39 mg/dl; LDL CHOLESTEROL CALCULATED 73 mg/dl; SODIUM 141 mmol/L (136-145); TRIGLYCERIDES 116 mg/dl (0-150); VERY LOW DENSITY LIPOPROT CALC 23 mg/dl
== END | disposition home or self-care (01) ==
LOC: C.LABPVFM 08:12
PROVIDERS: ATTEND Family Medicine
DX: E78.5 Hyperlipidemia, unspecified (principal); I10 Essential (primary) hypertension; R73.01 Impaired fasting glucose; R05 Cough

== ENCOUNTER → 2016-06-16 | Outpatient (CLI) | payer OTHER ==
[2016-06-16 12:53] LABS: RATIO 8.9 mcg/mg (0-30.0)
== END | disposition home or self-care (01) ==
LOC: C.LABPVFM 10:35
PROVIDERS: ATTEND Family Medicine
DX: E78.5 Hyperlipidemia, unspecified (principal); I10 Essential (primary) hypertension; R73.01 Impaired fasting glucose

== ENCOUNTER → 2016-07-22 | Outpatient (CLI) | payer OTHER ==
--- NOTE | 2016-07-22 10:17 | DIAGNOSTIC IMAGING REPORT ---
ABDOMEN FOR HERNIA CLINICAL HISTORY: Left groin discomfort. COMPARISON STUDY: CT of the abdomen and pelvis August 31, 2013. TECHNIQUE: Sonography of the left groin was performed with and without stress maneuvers. FINDINGS: No left inguinal hernia was identified by sonography. No mass or fluid collection was identified within the left groin. IMPRESSION: No left inguinal hernia identified. Electronically signed by: Hubert Goodwin M.D. 07/22/2016 10:15 AM Dictated Date/Time: 07/22/2016 10:14 AM
--- NOTE | 2016-07-22 10:24 | DIAGNOSTIC IMAGING REPORT ---
(TESTICULAR) SCROTUM-CONT CLINICAL HISTORY: Hydrocele. Scrotal pain. COMPARISON STUDY: 08/31/2013 FINDINGS: The right testis measures 5 x 2.9 x 3.3 cm. The left testis measures 5.5 x 3.2 x 2.8 cm. No intratesticular masses are visualized. There is no evidence of testicular torsion. There are bilateral hydroceles. There are small bilateral epididymal cysts. There is mild left-sided scrotal wall edema. There is a tiny left-sided scrotolith. IMPRESSION: 1. No evidence of intratesticular mass 2. Bilateral hydroceles similar to the preceding study 3. Mild left-sided scrotal wall edema Electronically signed by: Chetan Vaughan M.D. 07/22/2016 10:22 AM Dictated Date/Time: 07/22/2016 10:19 AM
== END | disposition home or self-care (01) ==
LOC: C.ULTR 09:33
PROVIDERS: ATTEND Family Medicine
DX: N43.3 Hydrocele, unspecified (principal); R10.32 Left lower quadrant pain

== ENCOUNTER → 2016-11-15 | Outpatient (CLI) | payer OTHER ==
[~2016-11-15] MED LIST changes: -METO100T44 PO; +METO1TAB69 PO
[2016-11-15 13:00] LABS: ESTIMATED AVERAGE GLUCOSE 131 mg/dl; HA1C FLAG Normal (Normal)
[2016-11-15 13:14] LABS: CHOLESTEROL/HDL RATIO 2.8
== END | disposition home or self-care (01) ==
LOC: C.LABPVFM 08:06
PROVIDERS: ATTEND Family Medicine
DX: E78.5 Hyperlipidemia, unspecified (principal); I10 Essential (primary) hypertension; G56.00 Carpal tunnel syndrome, unspecified upper limb; R73.01 Impaired fasting glucose; M25.561 Pain in right knee; W55.01XA Bitten by cat, initial encounter

== ENCOUNTER → 2017-04-01 | Outpatient (CLI) | payer OTHER ==
[~2017-04-01] MED LIST changes: +METO100T44 PO; -METO1TAB69 PO
[2017-04-01 13:13] LABS: HEMOGLOBIN A1C 6.3 % (4.5-5.6)
[2017-04-01 13:17] LABS: BLOOD UREA NITROGEN 20 mg/dl (7-18); CALCIUM 8.3 mg/dl (8.5-10.1); CARBON DIOXIDE 32 mmol/L (21-32); CREATININE 1.45 mg/dl (0.60-1.40); GLUCOSE 96 mg/dl (70-99); SODIUM 134 mmol/L (136-145)
== END | disposition home or self-care (01) ==
LOC: C.LABPVFM 09:19
PROVIDERS: ATTEND Family Medicine
DX: N40.0 Benign prostatic hyperplasia without lower urinary tract symptoms (principal); I10 Essential (primary) hypertension; R73.01 Impaired fasting glucose

== ENCOUNTER 2021-03-29 09:50 | Inpatient (IN) ==
[2021-03-29] MEDS ORDERED: MoRPHine SULFATE 4 MG/ML 1 ML CARP\\VIAL IV STA (10:03)
[2021-03-29] MEDS ORDERED: MoRPHine SULFATE 4 MG/ML 1 ML CARP\\VIAL IV PRN (10:03)
--- NOTE | 2021-03-29 10:07 | Emergency Department Note ---
Impression & Plan Syncope, Chest pain, Compression fx, lumbar spine, Hypoxia ED Provider Note NAME: USMAN CORREIA AGE: 80 SEX: M : 1940 ARRIVES VIA: Ambulance INFORMANT: Patient, EMS ED PROVIDER(S): Tarun Mobley DO CHIEF COMPLAINT: Syncope HPI: The patient is an 80-year-old male who presented to emergency department for an evaluation of syncope. The patient states he normally wakes up early in the morning sometimes around 4 AM. He woke up a little earlier than usual today because he had to urinate. While he was walking he started feeling dizzy and lightheaded. His was with him and states that he had a syncopal episode. He fell striking his back. He does complain of significant back pain which he describes as above his kidney. He started to have severe pain with any movement so he called 911. The patient arrived via ALS. He also started complaining of chest pain. The patient was treated with aspirin nitroglycerin. He was also treated with IV fluids and IV pain medication. Upon arrival his symptoms were significantly improved. At this time he states he has no chest pain but does have some shortness of breath as well as back pain. He denies having any headache. He does complain of some neck pain. He denies having any lower extremity or hip pain. He was unable to ambulate because of severity of pain. He states that he has been compliant with his usual medications. ROS: See above HPI for pertinent positives & negatives. A total of 10 systems reviewed and were otherwise negative. PAST MEDICAL HISTORY: See Below PAST SURGICAL HISTORY: See Below FAMILY HISTORY: See Below SOCIAL HISTORY: See Below HOME MEDICATIONS: See Below ALLERGIES: See Below VITALS: See Below PHYSICAL EXAMINATION: GENERAL: The patient is awake and alert. The patient is very anxious and u ncomfortable appearing. EYES: The conjunctivae are clear. The pupils are round and reactive. EARS, NOSE, MOUTH AND THROAT: The nose is without any evidence of any deformity. NECK: The neck is nontender and supple. RESPIRATORY: Normal respiratory effort is noted there is no evidence of wheezing rhonchi or rales CARDIOVASCULAR: Regular rate and rhythm noted there no murmurs rubs or gallops normal S1 normal S2. GASTROINTESTINAL: The abdomen is mildly distended and soft. There is right- sided tenderness to palpation but no guarding or rigidity. There is no pulsatile mass. BACK: Lower lumbar tenderness was noted to palpation. There was significant tenderness especially in the L5 L4 region. There was pain across the paravertebral musculature as well. There is no step-off. Range of motion testing elicited very severe pain. MUSCULOSKELETAL/EXTREMITIES: There is no evidence of gross deformity full range of motion is noted in the hips and shoulders. SKIN: Trace pedal edema was noted bilaterally. Skin was warm and dry. There is no calf tenderness. NEUROLOGIC: Patient is awake alert and oriented x3. Strength was symmetric. Agriculture Mechanic strength was equal. There was no facial droop. MEDICAL DECISION MAKING: The patient is an 80-year-old male who presented to the emergency department for an evaluation of back pain. The patient had a syncopal episode this morning. He fell to the ground and since that time has had severe low back pain. On route to our facility he did develop chest pain which was treated with aspirin and nitroglycerin. The patient does have an abnormal EKG which appears to be baseline. I discussed the patient's laboratory and radiographic studies with him. He was treated with pain medication while in the emergency department. At rest his pain was significantly improved but he has very severe pain with any movement. The patient was reevaluated multiple times. Given the patient's degree of pain as well as his presentation with chest pain syncope and abnormal EKG I do feel he may be a better candidate for inpatient management. I will discuss his case with the [facility] hospitalist. Triage Nursing notes reviewed. Prior medical records reviewed Vital Signs: reviewed and remarkable for elevated blood pressure. Patient was also hypoxic. Differential diagnosis: Vasovagal event, dehydration, infection, hypoglycemia, electrolyte abnormalities, cardiac sources, intracerebral event, pulmonary embolism, seiz ure, toxicologic, neurologic, as well as other pathologies. ER treatment provided: See below Diagnostics interpreted by me: ECG: EKG was obtained in the emergency department. My interpretation is sinus rhythm at 63 bpm. First-degree AV block was noted. There is no ectopy. High and low lateral ST abnormalities with T wave inversions were noted. This was compared to a tracing from April 022016. No changes were noted. Cardiac Monitoring: An order was placed for continuous cardiac monitoring. The monitor shows a rate of 60 bpm with sinus rhythm. Laboratory studies: As stated above and show below. Imaging studies: See below Consultation(s): This case was discussed with Dr. Ariza who is on-call for the [facility] hospitalist group. Past Med/Surg History Medical History Anxiety no meds Arthritis BPH (benign prostatic hyperplasia) CAD (coronary artery disease) follows with Dr. White COPD (chronic obstructive pulmonary disease) well controlled rare res inh use Depression no meds GERD (gastroesophageal reflux disease) Hx of fracture jaw -- no surgery -- able to open without difficulty Hyperlipidemia Hypertension Ischemic cardiomyopathy Myocardial Infarction 2003. follows [address] Dr[address] White. 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 History of cataract surgery bilateral History of colonoscopy History of heart artery stent X1 (02.16.2004) History of prostatectomy History of repair of rotator cuff left History of tooth extraction S/P inguinal hernia repair bilateral S/P right knee arthroscopy Family History Brother Family hx of colon cancer Family history of diabetes mellitus Colorectal cancer Father Myocardial infarction Uncle Myocardial infarction Other Lung cancer Denies family history of Ovarian cancer Prostate cancer Breast cancer Social History Smoking Status: Current some day smoker Tobacco Type: Cigarettes Age Started Using Tobacco: 10; packs per day: 0; Years Smoked: 69; Cigarettes Per Day: up to 2 per day but not every day; Second Hand Exposure: No; Hx Alcohol Use: No Hx Substance Use: No Preferred Language: [place] Communication Ability: Effective Visual Impairment: No Limitations Hearing Ability: Hard of Hearing High Pressure Cleaner Required: No Beliefs That Will Affect Care: None marital status: Current Living Situation: Spouse current occupational status: retired How many Children do You have: 2 Feels Safe at Home: Yes Childhood Exposure to Second-Hand Smoke: Yes caffeine: Yes Dental Care, Regularly: No Physical Activity Frequency: Does not Exercise Seatbelt Use: always Sunscreen Use: No Assistive Devices: Cane, Denture - Upper, Denture - Lower and Glasses Allergies Allergies Allergy/AdvReac Type Severity Reaction Status Date / Time SESAR Inhibitors Allergy Unknown Verified 03/20/21 09:44 Home Meds Home Medications Medication Instructions Recorded Confirmed albuterol sulfate 90 mcg/actuation 1 puff INH Q4 PRN 08/25/18 03/29/21 aerosol inhaler (ProAir HFA) aspirin 81 mg tablet,delayed 81 mg PO PM 08/25/18 03/29/21 release cetirizine 10 mg tablet 10 mg PO PM tab 08/25/18 03/29/21 omeprazole magnesium 20 mg 20 mg PO HS PRN 08/25/18 03/29/21 capsule,delayed release coenzyme Q10 100 mg capsule (Co 200 mg PO PM cap 04/24/19 03/29/21 Q-10) Previous Rx's Medication Instructions Recorded finasteride 5 mg tablet 5 mg PO HS #90 tab 02/22/19 atorvastatin 80 mg tablet 80 mg PO HS #90 tab 01/21/20 umeclidinium 62.5 mcg-vilanterol See Rx Instructions .ROUTE 07/18/20 25 mcg/actuation powdr for .COMPLEX #180 ea inhalation (Anoro Ellipta) gabapentin 100 mg capsule 200 mg PO PM #180 cap 09/26/20 hydrochlorothiazide 12.5 mg tablet 12.5 mg PO QAM PRN #90 tab 12/18/20 metoprolol succinate 100 mg 50 mg PO HS #90 tab 12/18/20 tablet,extended release 24 hr Results & Data (ED) Vital Signs Vital Signs - 24 hr 03/29/21 09:50 03/29/21 10:00 03/29/21 10:03 Temperature 36.8 C Temperature Source Oral Pulse Rate 61 64 61 Pulse Rate from SpO2 Sensor 64 Pulse Rhythm Regular Regular Respiratory Rate 16 18 16 Respiratory Effort / Characteristics Non-Labored Respiratory Depth Normal Respiratory Pattern Regular Blood Pressure 111/60 116/72 Blood Pressure Mean 77 86 Pulse Oximetry 86 L 90 94 Oxygen Delivery Method Room Air Nasal Cannula Oxygen Flow Rate 3 Sepsis Recent Fever Within 48 Hours No Sepsis New/Unexplained Change in Mental Status No Sepsis Action Taken by Nursing No Action Required Oxygen Flow Rate - Titration Pulse Oximetry Post Tiitration 03/29/21 10:13 03/29/21 11:00 03/29/21 12:00 Temperature Temperature Source Pulse Rate 60 Pulse Rate from SpO2 Sensor Pulse Rhythm Respiratory Rate 16 Respiratory Effort / Characteristics Respiratory Depth Respiratory Pattern Blood Pressure 135/74 153/74 H Blood Pressure Mean 94 100 Pulse Oximetry 86 L 95 Oxygen Delivery Method Nasal Cannula Oxygen Flow Rate 0 Sepsis Recent Fever Within 48 Hours Sepsis New/Unexplained Change in Mental Status Sepsis Action Taken by Nursing Oxygen Flow Rate - Titration 4 Pulse Oximetry Post Tiitration 94 Home Medications Current Medication List: was personally reviewed by me Laboratory Data Attestation: I reviewed the patient's lab results. Result diagrams: 03/29/21 10:02 03/29/21 10:02 Lab Results 03/29/21 03/29/21 03/29/21 Range/Units 10:02 10: 10:02 WBC 14.00 H (4.8-10.8) K/uL RBC 4.92 (4.7-6.1) M/uL Hgb 15.1 (14.0-18.0) g/dL Hct 46.4 (42-52) % MCV 94.3 (80-100) fL MCH 30.7 (25-34) pg MCHC 32.5 (32-36) g/dL RDW Std Deviation 50.7 H (36.4-46.3) fL RDW Coeff of Indira 14.8 H (11.5-14.5) % Plt Count 160 (130-400) K/uL MPV 9.8 (7.4-10.4) fL Immature Gran % (Auto) 0.2 % Neut % (Auto) 79.2 % Lymph % (Auto) 9.6 % Austin % (Auto) 8.9 % Eos % (Auto) 1.9 % Baso % (Auto) 0.2 % Neut # (Auto) 11.08 H (1.4-6.5) K/uL Lymph # (Auto) 1.35 (1.2-3.4) K/uL Austin # (Auto) 1.24 H (0.11-0.59) K/uL Eos # (Auto) 0.27 (0-0.5) K/uL Baso # (Auto) 0.03 (0-0.2) K/uL Immature Gran # (Auto) 0.03 H (0.00-0.02) K/uL PT 10.7 (9.0-12.0) Seconds INR 1.1 (0.9-1.1) APTT 29.6 (21.0-31.0) Seconds PTT Ratio 1.1 Sodium 136 (136-145) mmol/L Potassium 4.3 (3.5-5.1) mmol/L Chloride 104 (98-107) mmol/L Carbon Dioxide 24 (21-32) mmol/L Anion Gap 8 (3-11) BUN 25 H (6-23) mg/dl Creatinine 1.30 (0.6-1.4) mg/dl Est Cr Clr Drug Dosing 48.9 ml/min Est GFR ( Amer) 59.3 ml/min Est GFR (Non-Af Amer) 51.2 ml/min BUN/Creatinine Ratio 19.2 (10-20) Glucose 98 (70-99(Fasting)) mg/dl Calcium 8.5 (8.5-10.1) mg/dl Magnesium 2.0 (1.7-2.4) mg/dl Total Bilirubin 0.7 (0.2-1.0) mg/dl AST 23 (13-39) U/L ALT 19 (7-52) U/L Alkaline Phosphatase 90 (34-104) U/L Troponin I < 0.03 (0-0.04) ng/ml Total Protein 6.4 (6.0-8.3) gm/dl Albumin 3.6 (3.4-5.0) gm/dl Globulin 2.8 (2.5-4.0) gm/dl Albumin/Globulin Ratio 1.3 (0.9-2) TSH (0.300-4.500) uIu/ml SARS-CoV-2, RNA, NAAT (NEGATIVE) 03/29/21 03/29/21 Range/Units 10:02 10:15 WBC (4.8-10.8) K/uL RBC (4.7-6.1) M/uL Hgb (14.0-18.0) g/dL Hct (42-52) % MCV (80-100) fL MCH (25-34) pg MCHC (32-36) g/dL RDW Std Deviation (36.4-46.3) fL RDW Coeff of Indira (11.5-14.5) % Plt Count (130-400) K/uL MPV (7.4-10.4) fL Immature Gran % (Auto) % Neut % (Auto) % Lymph % (Auto) % Austin % (Auto) % Eos % (Auto) % Baso % (Auto) % Neut # (Auto) (1.4-6.5) K/uL Lymph # (Auto) (1.2-3.4) K/uL Austin # (Auto) (0.11-0.59) K/uL Eos # (Auto) (0-0.5) K/uL Baso # (Auto) (0-0.2) K/uL Immature Gran # (Auto) (0.00-0.02) K/uL PT (9.0-12.0) Seconds INR (0.9-1.1) APTT (21.0-31.0) Seconds PTT Ratio Sodium (136-145) mmol/L Potassium (3.5-5.1) mmol/L Chloride (98-107) mmol/L Carbon Dioxide (21-32) mmol/L Anion Gap (3-11) BUN (6-23) mg/dl Creatinine (0.6-1.4) mg/dl Est Cr Clr Drug Dosing ml/min Est GFR ( Amer) ml/min Est GFR (Non-Af Amer) ml/min BUN/Creatinine Ratio (10-20) Glucose (70-99(Fasting)) mg/dl Calcium (8.5-10.1) mg/dl Magnesium (1.7-2.4) mg/dl Total Bilirubin (0.2-1.0) mg/dl AST (13-39) U/L ALT (7-52) U/L Alkaline Phosphatase (34-104) U/L Troponin I (0-0.04) ng/ml Total Protein (6.0-8.3) gm/dl Albumin (3.4-5.0) gm/dl Globulin (2.5-4.0) gm/dl Albumin/Globulin Ratio (0.9-2) TSH 4.018 (0.300-4.500) uIu/ml SARS-CoV-2, RNA, NAAT NEGATIVE (NEGATIVE) Administered Medications Discontinued Medications Sodium Chloride (Nss) 500 mls @ 999 mls/hr IV .Q31M LIZZIE Stop: 03/29/21 10:45 Last Infusion: 03/29/21 12:27 Dose: 0 mls/hr Documented by: [id number] Admin: 03/29/21 10:28 Dose: 999 mls/hr Documented by: [id number] Morphine Sulfate (Morphine Sulfate 4 Mg/Ml 1 Ml Carp\Vial) 4 mg IV NOW STA Stop: 03/29/21 10:04 Last Admin: 03/29/21 10:28 Dose: 4 mg Documented by: [id number] Imaging Data Radiologist's Impression: Abdomen/Pelvis CT 03/29/21 10:03 CT abd pelvis IV con only CLINICAL HISTORY: fall, back pain COMPARISON STUDY: 08/31/2013 CT DOSE: TECHNIQUE: Standard CT of the Abdomen and Pelvis was performed with IV contrast. A dose lowering technique was utilized adhering to the principles of ALARA. Contrast Volume: Optiray 320, 120 ml. The patient did not receive oral contra st. FINDINGS: Abdominal cavity: There is no evidence for abdominal mass, adenopathy or ascites. Liver: There is homogeneous attenuation of the liver parenchyma. There is no evidence for enhancing mass lesion. Spleen: There is homogeneous attenuation of the splenic parenchyma. There is no enhancing mass lesion. Pancreas: There is homogeneous attenuation of the pancreatic parenchyma. There is no evidence for mass lesion or peripancreatic fluid collection. Gall Bladder: The gallbladder is well distended with no evidence for intraluminal calculi, wall thickening or pericholecystic edema. Adrenal glands: The adrenal glands are normal in size and attenuation. There is no evidence for enhancing mass lesion. Kidneys: There is homogeneous attenuation of the renal parenchyma bilaterally. There is a 2 mm nonobstructing left renal calculus. There is no evidence for right renal calculus or hydronephrosis bilaterally. There is no evidence for enhancing mass. Bowel: There is a small hiatal hernia. The bowel loops are normally placed within the abdomen and pelvis without evidence for dilatation or obstruction. There is no evidence for mass lesion. There are no inflammatory changes present. There is no evidence for free air. There is a normal appendix in the right lower quadrant. Bladder: The bladder is within normal limits with no evidence for focal mass, calculus or diverticulum. : There is no evidence for pelvic mass or adenopathy. There is no evidence for pelvic ascites. The prostate is mildly enlarged. Vasculature: The abdominal aorta is again ectatic with the abdominal aorta measuring 3.2 cm in greatest diameter. Extensive atherosclerotic calcification is present. Osseous structures: There is no acute osseous pathology. Bones are osteopenic with old anterior wedge deformities of L1 and L2. Degenerative disc and degenerative facet joint disease are present. IMPRESSION: 1. No acute intra-abdominal or pelvic abnormality. 2. Osteopenia with old anterior wedge deformities of L1 and L2. No acute abnormality. Degenerative disc and degenerative joint disease are also present. 3. 2 mm nonobstructing left renal calculus. 4. Small hiatal hernia. 5. Additional nonacute findings ACT 112: Negative or not required by law. Electronically signed by: Foster Yo M.D. 03/29/2021 12:[address] 03/29/21 10:03 CT cervical spine wo con CLINICAL HISTORY: fall . Neck pain COMPARISON STUDY: No previous studies for comparison. CT DOSE: TECHNIQUE: Standard CT of the Cervical Spine was performed without IV contrast. A dose lowering technique was utilized adhering to the principles of ALARA. FINDINGS: Bones: The bones are osteopenic There is no evidence for an acute fracture or malalignment. There is straightening of the expected cervical lordosis which is most likely related to degenerative change in spine fusion. There is fusion of the C5 and C6 vertebral bodies anteriorly. The heights of the remaining cervical vertebral bodies are maintained. The vertebral bodies are in anatomic alignment. The odontoid is intact. Degenerative changes are seen at the atlantoaxial articulation. Disc spaces:Moderate to marked disc space narrowing is present at C3-4 and C6-7. Space narrowing is seen at C4-5. There is again fusion at C5-6. Apophyseal joints:Degenerative apophyseal joint disease is seen throughout the cervical spine. Soft tissues:The prevertebral soft tissues are within normal limits. IMPRESSION: Osteopenia with no acute osseous pathology. Degenerative disc and degenerative joint disease with previous spine fusion. ACT 112: Negative or not required by law. Electronically signed by: Foster Yo M.D. 03/29/2021 12:16 PM Chest CTA 03/29/21 10:03 CT angio chest PE protocol CLINICAL HISTORY: Chest pain. Evaluate for pulmonary embolus COMPARISON STUDY: 03/19/2011 CT DOSE: TECHNIQUE: CT Angio of the chest was performed.followed by image post processing with coronal, and sagittal MIP reformats. Contrast Volume: Optiray 320, 120 ml FINDINGS: Vasculature: There is homogeneous perfusion of the pulmonary vasculature bilaterally. No intraluminal filling defects or evidence for pulmonary embolus is seen. Airway: The airway is clear. No endobronchial lesion is identified. Lungs: There is minimal dependent edema/atelectasis at the lung bases posteriorly, right greater than left. The lungs are clear of acute alveolar opacities, air bronchograms or pulmonary nodules. Pleura: There is no evidence for pleural effusion. There is no evidence for pneumothorax. Mediastinum: There is no evidence for pathologic adenopathy. The heart size is within normal limits. There is coronary artery calcification. The thoracic aorta is within normal limits. Atherosclerotic calcification is present. There is no evidence for pericardial effusion. Upper abdomen:There is a small hiatal hernia. Osseous structures: Degenerative changes are seen within the spine. Impression: 1. No CTA evidence for pulmonary embolus. 2. No acute chest disease. ACT 112: Negative or not required by law. Electronically signed by: Foster Yo M.D. 03/29/2021 12:[address] 03/29/21 10:03 CT head/brain wo con CLINICAL HISTORY: syncope COMPARISON STUDY: 03/17/2011 CT DOSE: 2301.21 mGy.cm TECHNIQUE: Standard CT of the Brain was performed without IV contrast. A dose lowering technique was utilized adhering to the principles of ALARA. FINDINGS: Extraaxial space: There is no evidence for subdural hematoma. There are no extra-axial fluid collections. Ventricles and cisterns: The ventricles are mildly dilated bilaterally. There is no evidence for midline shift or mass effect. Parenchyma: There is no subarachnoid or intraparenchymal hemorrhage. There is no evidence for an acute infarct or cerebral edema. There is mild cerebral cortical atrophy and decreased attenuation in the periventricular white matter representing remote small vessel disease. There are no gross mass lesions. Osseous structures: There is no evidence for an acute fracture. There is chronic mucosal thickening of the left maxillary antrum. The remaining visualized paranasal sinuses are clear. The mastoid air cells are clear bilaterally. Soft tissues: There is no evidence for focal soft tissue swelling. IMPRESSION: No acute intracerebral pathology. Mild cerebral cortical atrophy and remote small vessel disease. Chronic left maxillary sinusitis. ACT 112: Negative or not required by law. Electronically signed by: Foster Yo M.D. 03/29/2021 12:11 PM Discharge Plan Visit Data Chief Complaint: Syncope Stated Complaint: FALL, CHEST PAIN, BACK PAIN ED Provider: Tarun Mobley Discharge Problem: Syncope, Chest pain, Compression fx, lumbar spine, Hypoxia Patient Disposition: Being Evaluated by Hospitalist Forms Stand Alone Forms: My [facility] [place] Social IQ (Social Influence Quotient) Prescriptions Prescriptions: No Action finasteride 5 mg tablet 5 mg PO HS Qty: 90 RF: 1 atorvastatin 80 mg tablet 80 mg PO HS Qty: 90 RF: 3 umeclidinium-vilanterol [Anoro Ellipta] 62.5-25 mcg/actuation blister with device See Rx Instructions .ROUTE .COMPLEX Qty: 180 RF: 3 gabapentin 100 mg capsule 200 mg PO PM Qty: 180 RF: 1 metoprolol succinate 100 mg tablet extended release 24 hr 50 mg PO HS Qty: 90 RF: 3 hydrochlorothiazide 12.5 mg tablet 12.5 mg PO QAM PRN (Reason: edema) Qty: 90 RF: 1 aspirin 81 mg tablet,delayed release (DR/EC) 81 mg PO PM RF: 0 cetirizine 10 mg tablet 10 mg PO PM RF: 0 omeprazole magnesium 20 mg capsule,delayed release(DR/EC) 20 mg PO HS PRN (Reason: Heartburn) RF: 0 albuterol sulfate [ProAir HFA] 90 mcg/actuation HFA aerosol inhaler 1 puff INH Q4 PRN (Reason: sob) RF: 0 coenzyme Q10 [Co Q-10] 100 mg capsule 200 mg PO PM RF: 0 Referrals Referrals: Nissa Belle MD [Primary Care Provider] - Discharge Problem: Syncope Qualifiers: Syncope type: unspecified Qualified Code(s): R55 - Syncope and collapse Chest pain Qualifiers: Chest pain type: unspecified Qualified Code(s): R07.9 - Chest pain, unspecified Compression fx, lumbar spine Qualifiers: Encounter type: initial encounter Lumbar vertebra fracture level: unspecified lumbar vertebra Qualified Code(s): S32.000A - Wedge compression fracture of unspecified lumbar vertebra, initial encounter for closed fracture
[2021-03-29 10:10] LABS: Basophils # (auto) 0.03 K/uL (0-0.2); Basophils % (auto) 0.2 %; Eosinophils # (auto) 0.27 K/uL (0-0.5); Eosinophils % (auto) 1.9 %; Hematocrit (blood only) 46.4 % (42-52); Hemoglobin 15.1 g/dL (14.0-18.0); Immature Granulocytes # (auto) 0.03 K/uL (0.00-0.02); Immature Granulocytes % (auto) 0.2 %; Lymphocytes # (auto) 1.35 K/uL (1.2-3.4); Lymphocytes % (auto) 9.6 %; Mean Corpuscular Hemoglobin 30.7 pg (25-34); Mean Corpuscular Hgb Conc 32.5 g/dL (32-36); Mean Corpuscular Volume 94.3 fL (80-100); Mean Platelet Volume 9.8 fL (7.4-10.4); Monocytes # (auto) 1.24 K/uL (0.11-0.59); Monocytes % (auto) 8.9 %; Neutrophils # (auto) 11.08 K/uL (1.4-6.5); Neutrophils % (auto) 79.2 %; Platelet Count 160 K/uL (130-400); RDW Coefficient of Variation 14.8 % (11.5-14.5); RDW Standard Deviation 50.7 fL (36.4-46.3); Red Blood Count 4.92 M/uL (4.7-6.1)
[2021-03-29] MEDS ORDERED: SODIUM CHLORIDE 0.9% 500 ML IV SCH (10:15)
[2021-03-29 10:20] LABS: INR 1.1 (0.9-1.1); Partial Thromboplastin Ratio 1.1; Partial Thromboplastin Time 29.6 Seconds (21.0-31.0); Prothrombin Time 10.7 Seconds (9.0-12.0)
[2021-03-29 10:33] LABS: Troponin I < 0.03 ng/ml (0-0.04)
[2021-03-29 11:10] LABS: Alanine Aminotransferase 19 U/L (7-52); Albumin Globulin Ratio 1.3 (0.9-2); Albumin Level 3.6 gm/dl (3.4-5.0); Alkaline Phosphatase 90 U/L (34-104); Anion Gap 8 (3-11); Aspartate Aminotransferase 23 U/L (13-39); BUN Creatinine Ratio 19.2 (10-20); Bilirubin,Total 0.7 mg/dl (0.2-1.0); Blood Urea Nitrogen 25 mg/dl (6-23); Calcium 8.5 mg/dl (8.5-10.1); Carbon Dioxide 24 mmol/L (21-32); Chloride 104 mmol/L (98-107); Creatinine Clr Calc Pharmacy 48.9 ml/min; Est GFR (African American) 59.3 ml/min; Est GFR (Non-African American) 51.2 ml/min; Globulin 2.8 gm/dl (2.5-4.0); Glucose 98 mg/dl (70-99(Fasting)); Potassium 4.3 mmol/L (3.5-5.1); Sodium 136 mmol/L (136-145); Total Protein 6.4 gm/dl (6.0-8.3)
--- NOTE | 2021-03-29 11:17 | Electrocardiogram Report ---
Test Reason : Blood Pressure : / mmHG Vent. Rate : 063 BPM Atrial Rate : 063 BPM P-R Int : 228 ms QRS Dur : 084 ms QT Int : 432 ms P-R-T Axes : 044 033 104 degrees QTc Int : 442 ms Poor data quality, interpretation may be adversely affected Sinus rhythm with 1st degree A-V block Chronic Nonspecific T wave abnormality Lateral leads Nondiagnostic inferior Q waves Abnormal ECG When compared with ECG of 02-APR-2016 06:56, No significant change Confirmed by Chris Gunn ([id number]) on 03/29/2021 11:17:23 AM Referred By: REFERRED SELF Confirmed By:Chris Gunn
[2021-03-29] MEDS ORDERED: OPTIRAY 320 125ml IV ONE (11:47)
--- NOTE | 2021-03-29 12:09 | CT Scan Report ---
CT angio chest PE protocol CLINICAL HISTORY: Chest pain. Evaluate for pulmonary embolus COMPARISON STUDY: 03/19/2011 CT DOSE: TECHNIQUE: CT Angio of the chest was performed.followed by image post processing with coronal, and s agittal MIP reformats. Contrast Volume: Optiray 320, 120 ml FINDINGS: Vasculature: There is homogeneous perfusion of the pulmonary vasculature bilaterally. No intraluminal filling defects or evidence for pulmonary embolus is seen. Airway: The airway is clear. No endobronchial lesion is identified. Lungs: There is minimal dependent edema/atelectasis at the lung bases posteriorly, right greater than left. The lungs are clear of acute alveolar opacities, air bronchograms or pulmonary nodules. Pleura: There is no evidence for pleural effusion. There is no evidence for pneumothorax. Mediastinum: There is no evidence for pathologic adenopathy. The heart size is within normal limits. There is coronary artery calcification. The thoracic aorta is within normal limits. Atherosclerotic c alcification is present. There is no evidence for pericardial effusion. Upper abdomen:There is a small hiatal hernia. Osseous structures: Degenerative changes are seen within the spine. Impression: 1. No CTA evidence for pulmonary embolus. 2. No acute chest disease. ACT 112: Negative or not required by law. Electronically signed by: Foster Yo M.D. 03/29/2021 12:08 PM
--- NOTE | 2021-03-29 12:12 | CT Scan Report ---
CT head/brain wo con CLINICAL HISTORY: syncope COMPARISON STUDY: 03/17/2011 CT DOSE: 2301.21 mGy.cm TECHNIQUE: Standard CT of the Brain was performed without IV contrast. A dose lowering technique was utilized adhering to the principles of ALARA. FINDINGS: Extraaxial space: There is no evidence for subdural hematoma. There are no extra-axial fluid collecti ons. Ventricles and cisterns: The ventricles are mildly dilated bilaterally. There is no evidence for mid line shift or mass effect. Parenchyma: There is no subarachnoid or intraparenchymal hemorrhage. There is no evidence for an acu te infarct or cerebral edema. There is mild cerebral cortical atrophy and decreased attenuation in th e periventricular white matter representing remote small vessel disease. There are no gross mass lesi ons. Osseous structures: There is no evidence for an acute fracture. There is chronic mucosal thickening o f the left maxillary antrum. The remaining visualized paranasal sinuses are clear. The mastoid air ce lls are clear bilaterally. Soft tissues: There is no evidence for focal soft tissue swelling. IMPRESSION: No acute intracerebral pathology. Mild cerebral cortical atrophy and remote small vessel disease. Chronic left maxillary sinusitis. ACT 112: Negative or not required by law. Electronically signed by: Foster Yo M.D. 03/29/2021 12:11 PM
--- NOTE | 2021-03-29 12:17 | CT Scan Report ---
CT cervical spine wo con CLINICAL HISTORY: fall . Neck pain COMPARISON STUDY: No previous studies for comparison. CT DOSE: TECHNIQUE: Standard CT of the Cervical Spine was performed without IV contrast. A dose lowering te chnique was utilized adhering to the principles of ALARA. FINDINGS: Bones: The bones are osteopenic There is no evidence for an acute fracture or malalignment. There is straightening of the expected cervical lordosis which is most likely related to degenerative change i n spine fusion. There is fusion of the C5 and C6 vertebral bodies anteriorly. The heights of the noman ining cervical vertebral bodies are maintained. The vertebral bodies are in anatomic alignment. The o dontoid is intact. Degenerative changes are seen at the atlantoaxial articulation. Disc spaces:Moderate to marked disc space narrowing is present at C3-4 and C6-7. Space narrowing is s een at C4-5. There is again fusion at C5-6. Apophyseal joints:Degenerative apophyseal joint disease is seen throughout the cervical spine. Soft tissues:The prevertebral soft tissues are within normal limits. IMPRESSION: Osteopenia with no acute osseous pathology. Degenerative disc and degenerative joint dise ase with previous spine fusion. ACT 112: Negative or not required by law. Electronically signed by: Foster Yo M.D. 03/29/2021 12:16 PM
--- NOTE | 2021-03-29 12:29 | CT Scan Report ---
CT abd pelvis IV con only CLINICAL HISTORY: fall, back pain COMPARISON STUDY: 08/31/2013 CT DOSE: TECHNIQUE: Standard CT of the Abdomen and Pelvis was performed with IV contrast. A dose lowering juan hnique was utilized adhering to the principles of ALARA. Contrast Volume: Optiray 320, 120 ml. The patient did not receive oral contrast. FINDINGS: Abdominal cavity: There is no evidence for abdominal mass, adenopathy or ascites. Liver: There is homogeneous attenuation of the liver parenchyma. There is no evidence for enhancing m ass lesion. Spleen: There is homogeneous attenuation of the splenic parenchyma. There is no enhancing mass lesion . Pancreas: There is homogeneous attenuation of the pancreatic parenchyma. There is no evidence for mas s lesion or peripancreatic fluid collection. Gall Bladder: The gallbladder is well distended with no evidence for intraluminal calculi, wall thick ening or pericholecystic edema. Adrenal glands: The adrenal glands are normal in size and attenuation. There is no evidence for enhan cing mass lesion. Kidneys: There is homogeneous attenuation of the renal parenchyma bilaterally. There is a 2 mm nonobs tructing left renal calculus. There is no evidence for right renal calculus or hydronephrosis bilater ally. There is no evidence for enhancing mass. Bowel: There is a small hiatal hernia. The bowel loops are normally placed within the abdomen and pel vis without evidence for dilatation or obstruction. There is no evidence for mass lesion. There are n o inflammatory changes present. There is no evidence for free air. There is a normal appendix in the right lower quadrant. Bladder: The bladder is within normal limits with no evidence for focal mass, calculus or diverticulu m. : There is no evidence for pelvic mass or adenopathy. There is no evidence for pelvic ascites. The prostate is mildly enlarged. Vasculature: The abdominal aorta is again ectatic with the abdominal aorta measuring 3.[address] diameter. Extensive atherosclerotic calcification is present. Osseous structures: There is no acute osseous pathology. Bones are osteopenic with old anterior wedge deformities of L1 and L2. Degenerative disc and degenerative facet joint disease are present. IMPRESSION: 1. No acute intra-abdominal or pelvic abnormality. 2. Osteopenia with old anterior wedge deformities of L1 and L2. No acute abnormality. Degenerative di sc and degenerative joint disease are also present. 3. 2 mm nonobstructing left renal calculus. 4. Small hiatal hernia. 5. Additional nonacute findings ACT 112: Negative or not required by law. Electronically signed by: Foster Yo M.D. 03/29/2021 12:28 PM
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
[2021-03-29] MEDS ORDERED: MoRPHine SULFATE 2 MG/ML CARP IV PRN (14:32)
[2021-03-29] MEDS ORDERED: ACETAMINOPHEN 1,000 MG/100 ML VIAL IV SCH (14:32)
[2021-03-29] MEDS ORDERED: oxyCODONE HCL IR 5 MG TAB (IMMEDIATE RELEASE) PO PRN (14:32)
[2021-03-29] MEDS ORDERED: ONDANSETRON INJ 2 MG/ML 2 ML VIAL IV PRN (14:32)
[2021-03-29] MEDS ORDERED: NITROGLYCERIN SL 0.4 MG/TAB TAB SL PRN (14:32)
[2021-03-29] MEDS ORDERED: INFLUENZA VACCINE HIGH DOSE PF 65+ 0.7 ML SYR IM ONE (14:49)
[2021-03-29] MEDS ORDERED: PNEUMOCOCCAL POLYSACCHARIDES 25 MCG/0.5 ML VIAL/SYR IM ONE (14:49)
[2021-03-29] MEDS ORDERED: PANTOprazole 40 MG TAB PO PRN (14:49)
[2021-03-29] MEDS ORDERED: ALBUTEROL HFA 8 GM INHALER INH PRN (14:55)
[2021-03-29] MEDS: UMECLIDINIUM/VILANTEROL 62.5/25MCG 7 PUFFS/INHALER INH SCH (16:11)
[2021-03-29] MEDS: LIDOCAINE 5% 1 PATCH TD SCH (16:11)
[2021-03-29] MEDS ORDERED: METOPROLOL SUCC 50MG EXT REL TAB PO SCH (21:00)
[2021-03-29] MEDS: ACETAMINOPHEN 500 MG TAB PO SCH (21:19)
[2021-03-29] MEDS: CETIRIZINE HCL 10 MG TABLET PO SCH (21:19)
[2021-03-29] MEDS: ASPIRIN 81 MG ECTAB PO SCH (21:19)
[2021-03-29] MEDS: ATORVASTATIN 40 MG TAB PO SCH (21:19)
[2021-03-29] MEDS: FINASTERIDE 5 MG TAB PO SCH (21:19)
[2021-03-29] MEDS: BENZONATATE 100 MG CAPSULE PO SCH (21:19)
[2021-03-29] MEDS: GABAPENTIN 100 MG CAP PO SCH (21:19)
[2021-03-29] MEDS: DICLOFENAC SOD 1% GEL 100 GM TUBE EXT SCH (21:19)
[2021-03-29 23:42] LABS: Appearance Urine Clear (Clear); Bilirubin Urine Negative (Negative); Blood Urine Negative (Negative); Color Urine Yellow; Glucose Urine UA Negative (Negative); Ketones Urine Negative (Negative); Leukocyte Esterase Urine Negative (Negative); Nitrite Urine Negative (Negative); Protein Urine Negative (Negative); Specific Gravity Urine 1.039 (1.000-1.030); Urobilinogen Urine Negative (Negative)
[2021-03-30 06:27] LABS: Basophils # (auto) 0.03 K/uL (0-0.2); Basophils % (auto) 0.2 %; Eosinophils # (auto) 0.46 K/uL (0-0.5); Eosinophils % (auto) 3.7 %; Hemoglobin 15.3 g/dL (14.0-18.0); Immature Granulocytes # (auto) 0.02 K/uL (0.00-0.02); Immature Granulocytes % (auto) 0.2 %; Lymphocytes # (auto) 1.23 K/uL (1.2-3.4); Mean Corpuscular Hemoglobin 30.5 pg (25-34); Mean Corpuscular Hgb Conc 31.9 g/dL (32-36); Mean Corpuscular Volume 95.6 fL (80-100); Mean Platelet Volume 9.8 fL (7.4-10.4); Monocytes # (auto) 1.11 K/uL (0.11-0.59); Neutrophils % (auto) 76.9 %; Platelet Count 153 K/uL (130-400); RDW Coefficient of Variation 14.9 % (11.5-14.5); RDW Standard Deviation 52.1 fL (36.4-46.3); Red Blood Count 5.02 M/uL (4.7-6.1); White Blood Count 12.35 K/uL (4.8-10.8)
[2021-03-30 06:43] LABS: Calcium 8.6 mg/dl (8.5-10.1); Creatinine Clr Calc Pharmacy 47.8 ml/min; Est GFR (African American) 57.7 ml/min; Est GFR (Non-African American) 49.8 ml/min; Potassium 3.9 mmol/L (3.5-5.1)
--- NOTE | 2021-03-30 07:03 | Hospitalist Progress Note ---
Date of Service March 30, 2021 Assessment & Plan (1) Syncope: (2) Chest pain: (3) Compression fx, lumbar spine: Plan: 80 y/o M w/ PMHx of HTN, CAD, HLD, GERD, idiopathic polyneuropathy, ischemic CMP, smoker, COPD, lumbar spine compression fx who presents w/ The cause of patient's syncope is not certain. Numerous etiologies have already been ruled out by evaluation from the emergency department. Such etiologies include but are not limited to pulmonary emboli, aortic dissection, and intracranial hemorrhage. As etiology of syncope is not certain he will be admitted to the hospital proceeding as follows: Patient be placed on a telemetry unit to evaluate cardiac rhythm as a cause of his syncope. Due to underlying cardiovascular disease history we will trend his cardiac enzymes and EKGs. We will check an underlying echocardiogram to evaluate for etiology such as valvular heart disease as a cause of his syncope. We will maintain the patient on his home regimen of cardiac medications including aspirin, Lipitor, and metoprolol Patient does take hydrochlorothiazide but I will hold this medication for the present time as he has a slight elevation of his BUN suggestive of dehydration that may have contributed to his syncopal episode. In addition we will check orthostatic vital signs. Due to his fall and syncopal episode fall precautions will be implemented Due to the patient's back pain we will order analgesics utilizing acetaminophen, oxycodone, and morphine. We will also consider adding Lidoderm patches if these are unsuccessful We will enlist the help of PT and OT to ensure patient is mobile enough to return home Serial labs will be followed Will use SCDs for DVT prevention for the present time. Due to his recent fall we will hold chemical means until tomorrow and if patient's labs remained stable we will add subcutaneous heparin or Lovenox I discussed CODE STATUS with this patient and he notes that event of cardiopulmonary arrest CPR is an acceptable modality in his care and therefore he would be a level 1 full code (4) Chronic cough: (5) Hypertension: (6) Hyperlipidemia: (7) Chronic obstructive pulmonary disease: (8) CAD (coronary artery disease): (9) Diabetes mellitus: Plan: Hemoglobin A1c in 10/2020 was 6.2%. Excellent control with diet at this time. Glucose was 98 on labs at time of presentation today. Plan: [facility]. . full code. No chemoppx ordered. Admission and Anticipated Discharge Date Admission Date: March 29, 2021 Subjective Patient states he is feeling fine. Intermittent SOB, but none currently. Denies use of home O2. He states he is here because he had 2 syncopal episodes this week, first was upon standing up from bed too quickly, the other lee while using the restroom. He states the first episode was witnessed by and noted LOC x several seconds. Patient states he has had 5 year hx of similar syncopal episodes 2/2 low bp upon standing up too quickly, but rarely, last was 2 years ago. Has low back pain. Currently denies other ROS. Review of Systems Review of Systems: All systems reviewed & are unremarkable except as noted in HPI & below Physical Exam Physical Exam: General: Grossly A&O. NAD. Cooperative. HEENT: Atraumatic, normocephalic. Pulm: Diminished at mid and lower lung morelos. Faint exp wheezes L mid/lower. No respiratory distress. Wearing Nasal cannula. Cardiac: RRR, -mrg. Trace LE edma Abdominal: Nontender, nondistended, soft. Results & Data Results & Data ([facility]) Vital Signs (Past 12 Hours) Vital Signs HR 50s. 94 on 4L NC. Temp Pulse Pulse Resp BP Pulse Ox 03/30/21 04:00 36.4 C L 55 L 18 157/82 H 94 03/30/21 00:00 36.4 C L 58 L 18 145/86 H 95 03/29/21 23:37 52 L 03/29/21 19:46 36.6 C 54 L 22 158/82 H 92 Laboratory Results WBC 14->12.35. Na 136. K 3.9. Cr 1.33, stable. Clear urine w/ elev SG. UC pending. ecg sinus amy 1st deg avb Diagnostic Findings head ct 03/29 IMPRESSION: No acute intracerebral pathology. Mild cerebral cortical atrophy and remote small vessel disease. Chronic left maxillary sinusitis. chest cta: no acute c spine ct IMPRESSION: Osteopenia with no acute osseous pathology. Degenerative disc and degenerative joint disease with previous spine fusion. ct abd 1. No acute intra-abdominal or pelvic abnormality. 2. Osteopenia with old anterior wedge deformities of L1 and L2. No acute abnormality. Degenerative disc and degenerative joint disease are also present. 3. 2 mm nonobstructing left renal calculus. 4. Small hiatal hernia. 5. Additional nonacute findings Resident Activity Tracking Resident Involvement: Resident Care Provided Care Provided: Adult Hospital Medicine (1) Compression fx, lumbar spine Encounter type: initial encounter Lumbar vertebra fracture level: unspecified lumbar vertebra Qualified Code(s): S32.000A - Wedge compression fracture of unspecified lumbar vertebra, initial encounter for closed fracture (2) Syncope Syncope type: unspecified Qualified Code(s): R55 - Syncope and collapse (3) Chest pain Chest pain type: unspecified Qualified Code(s): R07.9 - Chest pain, unspecified
[2021-03-30] MEDS: BENZONATATE 100 MG CAPSULE PO SCH ×3 (08:12→21:09)
[2021-03-30] MEDS: ACETAMINOPHEN 500 MG TAB PO SCH ×3 (08:12→21:09)
[2021-03-30] MEDS: DICLOFENAC SOD 1% GEL 100 GM TUBE EXT SCH ×4 (08:14→21:10)
[2021-03-30] MEDS: LIDOCAINE 5% 1 PATCH TD SCH (08:15)
[2021-03-30] MEDS: UMECLIDINIUM/VILANTEROL 62.5/25MCG 7 PUFFS/INHALER INH SCH (08:15)
--- NOTE | 2021-03-30 15:45 | Medical Student Progress Note ---
Date of Service March 30, 2021 Assessment & Plan (1) Syncope: Syncope type: unspecified Qualified Code(s): R55 - Syncope and collapse (2) Bradycardia: (3) Neck pain, acute: (4) Hypertension: (5) CAD (coronary artery disease): (6) Hyperlipidemia: (7) Chronic obstructive pulmonary disease: (8) Chronic cough: Plan: Micky is an 80 yo M w PMHx of HTN, CAD, HLD, GERD, idiopathic polyneuropathy, ischemic CMP, smoker, COPD, lumbar spine compression fx who presents to the ED after a witness syncope episode and fall with head strike. 1. Syncope: - No seizure-like activity reported. - chronic problem, PCP and licensed clinical social worker think it may be orthostatic; orthostatic vitals during admission negative - etiology unknown, completed work-up including CT abdomen/pelvis, chest CTA, head CT, and cervical spine CT -Imaging studies negative thus far, making PE, aortic dissection, and intracranial hemorrhage less likely - Initial EKG shows 1st degree AV block - TTE pending - Troponin <0.03 x3, BNP >300 - HCTZ currently being held, suspected contributor to syncope - Continue home cardiac regimen including aspirin, Lipitor, and metoprolol. Given patients hesitance towards med changes, will contact Dr. White - Outpt event monitor ordered following discharge - PT/OT to evaluate ambulatory function/rehab to ensure patient is mobile enough for return to home 2. Bradycardia: - EKG demonstrating first degree AV block with bradycardia - telemetry overnight demonstrating persistent bradycardia (50s) - consideration of decreasing metoprolol dose from 50mg to 25mg 3. Neck pain: - CT cervical spine shows no acute pathology - Pain control 4. HTN: - consideration for d/c HCTZ with substitution of lorsatan - Orthostatic vitals negative upon admission 5. CAD: -See above plan 6. Hyperlipidemia: -See above 7. COPD: -Continue home Ellipta inhaler 8. Chronic cough: -Continue home Benzonatate FEN/GI: regular diet Dispo: Telemetry Code status: full code DVT ppx: SCDs Admission and Anticipated Discharge Date Admission Date: March 29, 2021 Supervising Attestation Medical Student Supervision Note: I was personally present during medical student patient encounter and independently interviewed and examined the patient and verified the cheek history and physical, reviewed labs and image studies, discussed the case with Susie Barnes and agree with the findings and care plan. Syncope - likely from hypovolemia due to prn use of hctz for leg edema. had taken it for 2-3 days before admission. will further discuss with cardiology about other option - possibly cutting down the hctz dose fo 6.25mg when using instead of 12.5mgs. await echo results. Subjective No acute events overnight. Patient states he is feeling fine. Intermittent SOB, but none currently. Denies use of home O2. He states he is here because he had 2 syncopal episodes this week, first was upon standing up from bed too quickly, the other lee while using the restroom. He states the first episode was witnessed by and noted LOC x several seconds. Patient states he has had a several year hx of similar syncopal episodes and his PCP believes it is d/t low BP upon standing up too quickly. Says this happens rarely, last episode was 2 years ago. No seizure-like activity ever recorded, no hx of seizure. Of note, patient takes HCTZ 12.5 mg PO QAM PRN for lower extremity edema and took one dose two days in a row preceding this last syncopal event. Has chronic back pain. Endorses being SOB. Review of Systems Review of Systems: Denies chest pain, CODY, abd pain, leg pain/swelling. Physical Exam Constitutional: Well-appearing, comfortably sitting in bed Respiratory: normal respiratory effort, lungs clear to auscultation Cardiovascular: RRR, no murmur, no edema Gastrointestinal (Abdomen): normal bowel sounds, soft, nontender, no hepatosplenomegaly Musculoskeletal: No lower extremity edema Neurologic: PERRL, EOMI, accommodation nl, no face palsy, no dysarthria Psychiatric: A+Ox3, euthymic affect Results & Data ([facility]) Vital Signs (Past 12 Hours) Vital Signs Temp Pulse Pulse Resp BP Pulse Ox Pulse Ox 03/30/21 14:32 03/30/21 11:57 92 03/30/21 11:47 36.7 C 54 L 16 154/78 H 92 03/30/21 11:45 96 03/30/21 09:34 57 L 03/30/21 08:00 36.8 C 64 20 126/74 94 03/30/21 07:53 36.5 C 54 L 18 151/77 H 92 03/30/21 04:00 36.4 C L 55 L 18 157/82 H 94 Pulse Ox Pulse Ox Pulse Ox 03/30/21 14:32 95 03/30/21 11:57 98 87 L 03/30/21 11:47 03/30/21 11:45 03/30/21 09:34 03/30/21 08:00 03/30/21 07:53 03/30/21 04:00 Laboratory Results Laboratory Results - last 24 hr 03/29/21 03/29/21 03/29/21 15:45 21:44 23:00 WBC RBC Hgb Hct MCV MCH MCHC RDW Std Deviation RDW Coeff of Indira Plt Count MPV Immature Gran % (Auto) Neut % (Auto) Lymph % (Auto) [place]orne % (Auto) Eos % (Auto) Baso % (Auto) Neut # (Auto) Lymph # (Auto) [place] # (Auto) Eos # (Auto) Baso # (Auto) Immature Gran # (Auto) Sodium Potassium Chloride Carbon Dioxide Anion Gap BUN Creatinine Est Cr Clr Drug Dosing Est GFR ( Amer) Est GFR (Non-Af Amer) BUN/Creatinine Ratio Glucose Calcium Troponin I < 0.03 < 0.03 B-Natriuretic Peptide Urine Color Yellow Urine Appearance Clear Urine pH 5.0 Ur Specific Willows 1.039 H Urine Protein Negative Urine Glucose (UA) Negative Urine Ketones Negative Urine Blood Negative Urine Nitrite Negative Urine Bilirubin Negative Urine Urobilinogen Negative Ur Leukocyte Esterase Negative 03/30/21 03/30/21 03/30/21 06:13 06:13 13:52 WBC 12.35 H RBC 5.02 Hgb 15.3 Hct 48.0 MCV 95.6 MCH 30.5 MCHC 31.9 L RDW Std Deviation 52.1 H RDW Coeff of Indira 14.9 H Plt Count 153 MPV 9.8 Immature Gran % (Auto) 0.2 Neut % (Auto) 76.9 Lymph % (Auto) 10.0 Cla[place]orne % (Auto) 9.0 Eos % (Auto) 3.7 Baso % (Auto) 0.2 Neut # (Auto) 9.50 H Lymph # (Auto) 1.23 [place]orne # (Auto) 1.11 H Eos # (Auto) 0.46 Baso # (Auto) 0.03 Immature Gran # (Auto) 0.02 Sodium 136 Potassium 3.9 Chloride 101 Carbon Dioxide 30 Anion Gap 5 BUN 24 H Creatinine 1.33 Est Cr Clr Drug Dosing 47.8 Est GFR ( Amer) 57.7 Est GFR (Non-Af Amer) 49.8 BUN/Creatinine Ratio 18.0 Glucose 80 Calcium 8.6 Troponin I B-Natriuretic Peptide 346 H Urine Color Urine Appearance Urine pH Ur Specific Willows Urine Protein Urine Glucose (UA) Urine Ketones Urine Blood Urine Nitrite Urine Bilirubin Urine Urobilinogen Ur Leukocyte Esterase Diagnostic Findings Impressions Abdomen/Pelvis CT 03/29/21 10:03 CT abd pelvis IV con only CLINICAL HISTORY: fall, back pain COMPARISON STUDY: 08/31/2013 CT DOSE: TECHNIQUE: Standard CT of the Abdomen and Pelvis was performed with IV contrast. A dose lowering technique was utilized adhering to the principles of ALARA. Contrast Volume: Optiray 320, 120 ml. The patient did not receive oral contrast. FINDINGS: Abdominal cavity: There is no evidence for abdominal mass, adenopathy or ascites. Liver: There is homogeneous attenuation of the liver parenchyma. There is no evidence for enhancing mass lesion. Spleen: There is homogeneous attenuation of the splenic parenchyma. There is no enhancing mass lesion. Pancreas: There is homogeneous attenuation of the pancreatic parenchyma. There is no evidence for mass lesion or peripancreatic fluid collection. Gall Bladder: The gallbladder is well distended with no evidence for intraluminal calculi, wall thickening or pericholecystic edema. Adrenal glands: The adrenal glands are normal in size and attenuation. There is no evidence for enhancing mass lesion. Kidneys: There is homogeneous attenuation of the renal parenchyma bilaterally. There is a 2 mm nonobstructing left renal calculus. There is no evidence for right renal calculus or hydronephrosis bilaterally. There is no evidence for enhancing mass. Bowel: There is a small hiatal hernia. The bowel loops are normally placed within the abdomen and pelvis without evidence for dilatation or obstruction. There is no evidence for mass lesion. There are no inflammatory changes present. There is no evidence for free air. There is a normal appendix in the right lower quadrant. Bladder: The bladder is within normal limits with no evidence for focal mass, calculus or diverticulum. : There is no evidence for pelvic mass or adenopathy. There is no evidence for pelvic ascites. The prostate is mildly enlarged. Vasculature: The abdominal aorta is again ectatic with the abdominal aorta measuring 3.2 cm in greatest diameter. Extensive atherosclerotic calcification is present. Osseous structures: There is no acute osseous pathology. Bones are osteopenic with old anterior wedge deformities of L1 and L2. Degenerative disc and degenerative facet joint disease are present. IMPRESSION: 1. No acute intra-abdominal or pelvic abnormality. 2. Osteopenia with old anterior wedge deformities of L1 and L2. No acute abnormality. Degenerative disc and degenerative joint disease are also present. 3. 2 mm nonobstructing left renal calculus. 4. Small hiatal hernia. 5. Additional nonacute findings ACT 112: Negative or not required by law. Electronically signed by: Foster Yo M.D. 03/29/2021 12:[address] 03/29/21 10:03 CT cervical spine wo con CLINICAL HISTORY: fall . Neck pain COMPARISON STUDY: No previous studies for comparison. CT DOSE: TECHNIQUE: Standard CT of the Cervical Spine was performed without IV contrast. A dose lowering technique was utilized adhering to the principles of ALARA. FINDINGS: Bones: The bones are osteopenic There is no evidence for an acute fracture or malalignment. There is straightening of the expected cervical lordosis which is most likely related to degenerative change in spine fusion. There is fusion of the C5 and C6 vertebral bodies anteriorly. The heights of the remaining cervical vertebral bodies are maintained. The vertebral bodies are in anatomic alignment. The odontoid is intact. Degenerative changes are seen at the atlantoaxial articulation. Disc spaces:Moderate to marked disc space narrowing is present at C3-4 and C6-7. Space narrowing is seen at C4-5. There is again fusion at C5-6. Apophyseal joints:Degenerative apophyseal joint disease is seen throughout the cervical spine. Soft tissues:The prevertebral soft tissues are within normal limits. IMPRESSION: Osteopenia with no acute osseous pathology. Degenerative disc and degenerative joint disease with previous spine fusion. ACT 112: Negative or not required by law. Electronically signed by: Foster Yo M.D. 03/29/2021 12:16 PM Chest CTA 03/29/21 10:03 CT angio chest PE protocol CLINICAL HISTORY: Chest pain. Evaluate for pulmonary embolus COMPARISON STUDY: 03/19/2011 CT DOSE: TECHNIQUE: CT Angio of the chest was performed.followed by image post processing with coronal, and sagittal MIP reformats. Contrast Volume: Optiray 320, 120 ml FINDINGS: Vasculature: There is homogeneous perfusion of the pulmonary vasculature bilaterally. No intraluminal filling defects or evidence for pulmonary embolus is seen. Airway: The airway is clear. No endobronchial lesion is identified. Lungs: There is minimal dependent edema/atelectasis at the lung bases posteriorly, right greater than left. The lungs are clear of acute alveolar opacities, air bronchograms or pulmonary nodules. Pleura: There is no evidence for pleural effusion. There is no evidence for pneumothorax. Mediastinum: There is no evidence for pathologic adenopathy. The heart size is within normal limits. There is coronary artery calcification. The thoracic aorta is within normal limits. Atherosclerotic calcification is present. There is no evidence for pericardial effusion. Upper abdomen:There is a small hiatal hernia. Osseous structures: Degenerative changes are seen within the spine. Impression: 1. No CTA evidence for pulmonary embolus. 2. No acute chest disease. ACT 112: Negative or not required by law. Electronically signed by: Foster Yo M.D. 03/29/2021 12:[address] 03/29/21 10:03 CT head/brain wo con CLINICAL HISTORY: syncope COMPARISON STUDY: 03/17/2011 CT DOSE: 2301.21 mGy.cm TECHNIQUE: Standard CT of the Brain was performed without IV contrast. A dose lowering technique was utilized adhering to the principles of ALARA. FINDINGS: Extraaxial space: There is no evidence for subdural hematoma. There are no extra-axial fluid collections. Ventricles and cisterns: The ventricles are mildly dilated bilaterally. There is no evidence for midline shift or mass effect. Parenchyma: There is no subarachnoid or intraparenchymal hemorrhage. There is no evidence for an acute infarct or cerebral edema. There is mild cerebral cortical atrophy and decreased attenuation in the periventricular white matter representing remote small vessel disease. There are no gross mass lesions. Osseous structures: There is no evidence for an acute fracture. There is chronic mucosal thickening of the left maxillary antrum. The remaining visualized paranasal sinuses are clear. The mastoid air cells are clear bilaterally. Soft tissues: There is no evidence for focal soft tissue swelling. IMPRESSION: No acute intracerebral pathology. Mild cerebral cortical atrophy and remote small vessel disease. Chronic left maxillary sinusitis. ACT 112: Negative or not required by law. Electronically signed by: Foster Yo M.D. 03/29/2021 12:11 PM
--- NOTE | 2021-03-30 19:14 | XCELERA ---
[id number] [id number]
[2021-03-30] MEDS ORDERED: METOPROLOL SUCC 25MG EXT REL TAB PO SCH (21:00)
[2021-03-30] MEDS ORDERED: METOPROLOL SUCC 50MG EXT REL TAB PO SCH (21:00)
[2021-03-30] MEDS: ASPIRIN 81 MG ECTAB PO SCH (21:08)
[2021-03-30] MEDS: FINASTERIDE 5 MG TAB PO SCH (21:09)
[2021-03-30] MEDS: ATORVASTATIN 40 MG TAB PO SCH (21:09)
[2021-03-30] MEDS: CETIRIZINE HCL 10 MG TABLET PO SCH (21:09)
[2021-03-30] MEDS: GABAPENTIN 100 MG CAP PO SCH (21:10)
--- NOTE | 2021-03-31 06:16 | Electrocardiogram Report ---
Test Reason : Blood Pressure : / mmHG Vent. Rate : 056 BPM Atrial Rate : 056 BPM P-R Int : 216 ms QRS Dur : 088 ms QT Int : 438 ms P-R-T Axes : 033 026 108 degrees QTc Int : 422 ms Poor data quality, interpretation may be adversely affected Sinus bradycardia with marked sinus arrhythmia with 1st degree A-V block Cannot rule out Inferior infarct (cited on or before 30-MAR-2021) T wave abnormality, consider lateral ischemia Abnormal ECG When compared with ECG of 29-MAR-2021 09:55, T wave inversion less evident in Lateral leads Confirmed by Buddy Jones ([id number]) on 03/31/2021 6:16:10 AM Referred By: REFERRED SELF Confirmed By:Buddy Jones
[2021-03-31 06:58] LABS: Basophils # (auto) 0.01 K/uL (0-0.2); Basophils % (auto) 0.1 %; Eosinophils # (auto) 0.38 K/uL (0-0.5); Eosinophils % (auto) 3.1 %; Hematocrit (blood only) 44.7 % (42-52); Hemoglobin 14.3 g/dL (14.0-18.0); Immature Granulocytes # (auto) 0.03 K/uL (0.00-0.02); Immature Granulocytes % (auto) 0.2 %; Lymphocytes % (auto) 9.8 %; Mean Corpuscular Hemoglobin 30.2 pg (25-34); Mean Corpuscular Volume 94.5 fL (80-100); Mean Platelet Volume 9.9 fL (7.4-10.4); Monocytes # (auto) 1.39 K/uL (0.11-0.59); Monocytes % (auto) 11.3 %; Neutrophils # (auto) 9.28 K/uL (1.4-6.5); Neutrophils % (auto) 75.5 %; Platelet Count 139 K/uL (130-400); RDW Coefficient of Variation 14.6 % (11.5-14.5); RDW Standard Deviation 50.7 fL (36.4-46.3); Red Blood Count 4.73 M/uL (4.7-6.1); White Blood Count 12.29 K/uL (4.8-10.8)
[2021-03-31 07:19] LABS: BUN Creatinine Ratio 21.6 (10-20); Calcium 8.3 mg/dl (8.5-10.1); Creatinine Clr Calc Pharmacy 54.8 ml/min; Est GFR (African American) 68.1 ml/min; Est GFR (Non-African American) 58.7 ml/min; Potassium 3.8 mmol/L (3.5-5.1)
[2021-03-31 07:26] VITALS: BP 152/83
[2021-03-31] MEDS: DICLOFENAC SOD 1% GEL 100 GM TUBE EXT SCH ×2 (08:31→13:42)
[2021-03-31] MEDS: BENZONATATE 100 MG CAPSULE PO SCH ×2 (08:32→13:43)
[2021-03-31] MEDS: ACETAMINOPHEN 500 MG TAB PO SCH ×2 (08:32→13:42)
[2021-03-31] MEDS: UMECLIDINIUM/VILANTEROL 62.5/25MCG 7 PUFFS/INHALER INH SCH (08:33)
[2021-03-31] MEDS: LIDOCAINE 5% 1 PATCH TD SCH (08:33)
[2021-03-31] MEDS ORDERED: LOSARTAN POTASSIUM 25 MG TAB PO SCH (09:00)
--- NOTE | 2021-03-31 09:29 | Medical Student Progress Note ---
Date of Service March 31, 2021 Assessment & Plan (1) Syncope: Syncope type: unspecified Qualified Code(s): R55 - Syncope and collapse (2) Bradycardia: (3) Neck pain, acute: (4) Hypertension: (5) CAD (coronary artery disease): (6) Hyperlipidemia: (7) Chronic obstructive pulmonary disease: (8) Chronic cough: Plan: Micky is an 80 yo M w PMHx of HTN, CAD, HLD, GERD, idiopathic polyneuropathy, ischemic CMP, smoker, COPD, lumbar spine compression fx who presents to the ED after a witness syncope episode and fall with head strike. 1. Syncope: - Echo revealed no change since 03/2016 - Less likely a structural cardiac or valvular abnormality as primary cause - Repeat orthostatic vitals WNL - Likely d/t hypovolemia secondary to HCTZ for leg edema - For syncope ppx, HCTZ should be taken no more than 1/week - Continue home cardiac medications (Aspirin, Lipitor, Metoprolol) - Outpt event monitor ordered following d/c - PT/OT okay for return to home when medically stable 2. Bradycardia: - EKG demonstrating first degree AV block with bradycardia - Telemetry overnight demonstrating persistent bradycardia (50s) - Decrease Metoprolol 50mg to 12.5mg 3. Neck pain: - Patient reports returning to baseline - Pain control 4. HTN: - Consideration for d/c HCTZ with substitution of losartan 5. CAD: - See above plan 6. Hyperlipidemia: - See above 7. COPD: - Continue home Ellipta inhaler 8. Chronic cough: - Continue home Benzonatate - d/c on Flonase FEN/GI: regular diet Dispo: Telemetry Code status: full code DVT ppx: SCDs Admission and Anticipated Discharge Date Admission Date: March 29, 2021 Subjective No acute events overnight. Today, Micky rates neck pain 2/10 and back pain 4-5/10 which is close to baseline. Feeling overall much better. No longer using O2 nasal canula. Does note some lower left extremity edema. Wishes to go home [place]. Review of Systems Review of Systems: Denies SOB, chest pain, abd pain. Physical Exam Constitutional: Comfortably sitting in bed, no acute distress Respiratory: normal respiratory effort, lungs clear to auscultation Cardiovascular: RRR, no murmur Gastrointestinal (Abdomen): normal bowel sounds, soft, nontender, no hepatosplenomegaly Musculoskeletal: 1+ pitting edema left lower extremity Neurologic: CN II-XII grossly intact No ataxia with [id number] or fain-if-[id number] testing Diminished sensory to pinprick b/l lower extremities to level of proximal calf Psychiatric: A+Ox3, euthymic affect Results & Data ([facility]) Vital Signs (Past 12 Hours) Vital Signs Temp Pulse Pulse Resp BP Pulse Ox 03/31/21 07:25 36.4 C L 62 18 152/83 H 95 03/31/21 07:00 63 03/31/21 05:40 36.4 C L 67 18 95 03/31/21 00:16 36.5 C 57 L 16 144/79 H 95 03/30/21 23:00 66 Laboratory Results Laboratory Results - last 24 hr 03/30/21 03/31/21 03/31/21 13:52 06:31 06:31 WBC 12.29 H RBC 4.73 Hgb 14.3 Hct 44.7 MCV 94.5 MCH 30.2 MCHC 32.0 RDW Std Deviation 50.7 H RDW Coeff of Indira 14.6 H Plt Count 139 MPV 9.9 Immature Gran % (Auto) 0.2 Neut % (Auto) 75.5 Lymph % (Auto) 9.8 [place] % (Auto) 11.3 Eos % (Auto) 3.1 Baso % (Auto) 0.1 Neut # (Auto) 9.28 H Lymph # (Auto) 1.20 [place] # (Auto) 1.39 H Eos # (Auto) 0.38 Baso # (Auto) 0.01 Immature Gran # (Auto) 0.03 H Sodium 133 L Potassium 3.8 Chloride 99 Carbon Dioxide 28 Anion Gap 6 BUN 25 H Creatinine 1.16 Est Cr Clr Drug Dosing 54.8 Est GFR ( Amer) 68.1 Est GFR (Non-Af Amer) 58.7 BUN/Creatinine Ratio 21.6 H Glucose 67 L Calcium 8.3 L Magnesium 2.0 B-Natriuretic Peptide 346 H Diagnostic Findings Impressions Abdomen/Pelvis CT 03/29/21 10:03 CT abd pelvis IV con only CLINICAL HISTORY: fall, back pain COMPARISON STUDY: 08/31/2013 CT DOSE: TECHNIQUE: Standard CT of the Abdomen and Pelvis was performed with IV contrast. A dose lowering technique was utilized adhering to the principles of ALARA. Contrast Volume: Optiray 320, 120 ml. The patient did not receive oral contrast. FINDINGS: Abdominal cavity: There is no evidence for abdominal mass, adenopathy or ascites. Liver: There is homogeneous attenuation of the liver parenchyma. There is no evidence for enhancing mass lesion. Spleen: There is homogeneous attenuation of the splenic parenchyma. There is no enhancing mass lesion. Pancreas: There is homogeneous attenuation of the pancreatic parenchyma. There is no evidence for mass lesion or peripancreatic fluid collection. Gall Bladder: The gallbladder is well distended with no evidence for intraluminal calculi, wall thickening or pericholecystic edema. Adrenal glands: The adrenal glands are normal in size and attenuation. There is no evidence for enhancing mass lesion. Kidneys: There is homogeneous attenuation of the renal parenchyma bilaterally. There is a 2 mm nonobstructing left renal calculus. There is no evidence for right renal calculus or hydronephrosis bilaterally. There is no evidence for enhancing mass. Bowel: There is a small hiatal hernia. The bowel loops are normally placed within the abdomen and pelvis without evidence for dilatation or obstruction. There is no evidence for mass lesion. There are no inflammatory changes present. There is no evidence for free air. There is a normal appendix in the right lower quadrant. Bladder: The bladder is within normal limits with no evidence for focal mass, calculus or diverticulum. : There is no evidence for pelvic mass or adenopathy. There is no evidence for pelvic ascites. The prostate is mildly enlarged. Vasculature: The abdominal aorta is again ectatic with the abdominal aorta measuring 3.2 cm in greatest diameter. Extensive atherosclerotic calcification is present. Osseous structures: There is no acute osseous pathology. Bones are osteopenic with old anterior wedge deformities of L1 and L2. Degenerative disc and degenerative facet joint disease are present. IMPRESSION: 1. No acute intra-abdominal or pelvic abnormality. 2. Osteopenia with old anterior wedge deformities of L1 and L2. No acute abnormality. Degenerative disc and degenerative joint disease are also present. 3. 2 mm nonobstructing left renal calculus. 4. Small hiatal hernia. 5. Additional nonacute findings ACT 112: Negative or not required by law. Electronically signed by: Foster Yo M.D. 03/29/2021 12:[address] 03/29/21 10:03 CT cervical spine wo con CLINICAL HISTORY: fall . Neck pain COMPARISON STUDY: No previous studies for comparison. CT DOSE: TECHNIQUE: Standard CT of the Cervical Spine was performed without IV contrast. A dose lowering technique was utilized adhering to the principles of ALARA. FINDINGS: Bones: The bones are osteopenic There is no evidence for an acute fracture or malalignment. There is straightening of the expected cervical lordosis which is most likely related to degenerative change in spine fusion. There is fusion of the C5 and C6 vertebral bodies anteriorly. The heights of the remaining cervical vertebral bodies are maintained. The vertebral bodies are in anatomic alignment. The odontoid is intact. Degenerative changes are seen at the atlantoaxial articulation. Disc spaces:Moderate to marked disc space narrowing is present at C3-4 and C6-7. Space narrowing is seen at C4-5. There is again fusion at C5-6. Apophyseal joints:Degenerative apophyseal joint disease is seen throughout the cervical spine. Soft tissues:The prevertebral soft tissues are within normal limits. IMPRESSION: Osteopenia with no acute osseous pathology. Degenerative disc and degenerative joint disease with previous spine fusion. ACT 112: Negative or not required by law. Electronically signed by: Foster Yo M.D. 03/29/2021 12:16 PM Chest CTA 03/29/21 10:03 CT angio chest PE protocol CLINICAL HISTORY: Chest pain. Evaluate for pulmonary embolus COMPARISON STUDY: 03/19/2011 CT DOSE: TECHNIQUE: CT Angio of the chest was performed.followed by image post processing with coronal, and sagittal MIP reformats. Contrast Volume: Optiray 320, 120 ml FINDINGS: Vasculature: There is homogeneous perfusion of the pulmonary vasculature jose aterally. No intraluminal filling defects or evidence for pulmonary embolus is seen. Airway: The airway is clear. No endobronchial lesion is identified. Lungs: There is minimal dependent edema/atelectasis at the lung bases posteriorly, right greater than left. The lungs are clear of acute alveolar opacities, air bronchograms or pulmonary nodules. Pleura: There is no evidence for pleural effusion. There is no evidence for pneumothorax. Mediastinum: There is no evidence for pathologic adenopathy. The heart size is within normal limits. There is coronary artery calcification. The thoracic aorta is within normal limits. Atherosclerotic calcification is present. There is no evidence for pericardial effusion. Upper abdomen:There is a small hiatal hernia. Osseous structures: Degenerative changes are seen within the spine. Impression: 1. No CTA evidence for pulmonary embolus. 2. No acute chest disease. ACT 112: Negative or not required by law. Electronically signed by: Foster Yo M.D. 03/29/2021 12:[address] 03/29/21 10:03 CT head/brain wo con CLINICAL HISTORY: syncope COMPARISON STUDY: 03/17/2011 CT DOSE: 2301.21 mGy.cm TECHNIQUE: Standard CT of the Brain was performed without IV contrast. A dose lowering technique was utilized adhering to the principles of ALARA. FINDINGS: Extraaxial space: There is no evidence for subdural hematoma. There are no extra-axial fluid collections. Ventricles and cisterns: The ventricles are mildly dilated bilaterally. There is no evidence for midline shift or mass effect. Parenchyma: There is no subarachnoid or intraparenchymal hemorrhage. There is no evidence for an acute infarct or cerebral edema. There is mild cerebral cortical atrophy and decreased attenuation in the periventricular white matter representing remote small vessel disease. There are no gross mass lesions. Osseous structures: There is no evidence for an acute fracture. There is chronic mucosal thickening of the left maxillary antrum. The remaining visualized paranasal sinuses are clear. The mastoid air cells are clear bilaterally. Soft tissues: There is no evidence for focal soft tissue swelling. IMPRESSION: No acute intracerebral pathology. Mild cerebral cortical atrophy and remote small vessel disease. Chronic left maxillary sinusitis. ACT 112: Negative or not required by law. Electronically signed by: Foster Yo M.D. 03/29/2021 12:11 PM
[2021-03-31 12:58] VITALS: TEMP 98.1
[2021-03-31 16:12] VITALS: PULSE 62; O2SAT 90
--- NOTE | 2021-03-31 17:14 | Med Student Discharge Summary ---
Date of Service March 31, 2021 Admission HPI Per Admitting Provider This is an 80-year-old male who presented to [facility] emergency department secondary to a syncopal episode. Patient notes that he was in his usual state of health feeling fine yesterday. He says that earlier this morning he went into the bathroom to use the restroom. He was standing at the bathroom sink drinking some water when he developed a coughing spell. Patient notes that shortly after this he blacked out and fell. He said he did strike his head against the door but came to in a few seconds. Prior to this fainting spell the patient denied any preceding chest pain or shortness of breath. He notes over the past several days he has been able to eat and drink his usual amount. He denied any preceding headache or visual changes. He denied any strokelike symptoms such as extremity weakness, dysarthria, or dysphagia. Patient does report that he has had episodes like this in the past and evaluations have been inconclusive as to the cause. EMS was summoned and in route to the hospital patient said that he did develop some substernal chest pain that was treated with aspirin and nitroglycerin and had resolved by the time he arrived to the hospital. Patient does report a known history of cardiovascular disease. His filling machine operator records from Dr. Sosa's office were reviewed and patient did suffer a heart attack in 2003. At this time he underwent cardiac catheterization where he had a drug-eluting stent placed to the circumflex artery. He was also noted to have 50% occlusion of the left anterior descending artery and 40% occlusion of the right coronary artery. Since this heart attack patient has had 2 stress echocardiograms. In 2009 he had a stress echo that was negative for ischemia and he was noted to have a 50% ejection fraction with no significant valvular abnormalities. He separately has had a stress test in 2016 that again was negative for inducible ischemia and he was noted to have a 55% ejection fraction. His most recent visit with his filling machine operator was in November 2020 where patient was complaining of some atypical chest pain that was not felt to be likely to angina. At this visit patient was complaining of some lightheadedness. The patient has been taking a diuretic and it was felt the patient's lightheadedness may have been due to intravascular volume depletion and his hydrochlorothiazide dose that he was taking was cut in half. Following this visit patient was instructed to follow-up with cardiology within 6 months or as needed. Since arrival to the emergency department the patient just complains of some back pain. He says the pain does not radiate down his legs. He notes previously noted substernal chest pain has resolved. He denies any headache or visual changes. He denies any nausea or vomiting. He denies any abdominal pain. He does note that recently he has not had any fevers, shakes, chills. In the emergency department the patient had labs and imaging which I independently reviewed. CBC revealed white blood cell count was 14.0. His hemoglobin and hematocrit along with his platelet count were noted to be normal. Coagulation studies were noted to be normal. A chemistry profile showed sodium and potassium along with his creatinine were normal. There was a slight elevation of his BUN to 25. There is no significant elevation of LFTs. TSH was noted to be normal. Cardiac enzymes were nonelevated. A Covid test was performed and was noted to be negative. An EKG showed nonspecific T wave abnormalities in the lateral leads however when compared to prior EKGs this was felt to be similar. Imaging conducted in the emergency department included a CT scan of his head that showed no acute intracranial stroke or skull fractures. A cervical spine CT scan showed no cervical spine fractures. CT scan of the chest showed no evidence of pneumonia or pulmonary emboli. No evidence of aortic dissection. An abdominal CT scan showed no acute intra-abdominal or pelvic organ injuries. Patient was noted to have osteopenia and there were wedge deformities of L1 and L2 that were not felt to be acute fractures. Due to the patient's back pain is felt that admission was warranted. At the time of my interview he is resting comfortably in bed and he was in no distress. Admission Exam (Per Admitting) Respiratory normal respiratory effort, lungs clear to auscultation Cardiovascular RRR, no murmur, no edema Gastrointestinal (Abdomen) normal bowel sounds, soft, nontender, no hepatosplenomegaly Neurologic PERRL, EOMI, accommodation nl, no face palsy, no dysarthria Psychiatric A+Ox3, euthymic affect Respiratory normal respiratory effort, lungs clear to auscultation Cardiovascular RRR, no murmur, no edema Gastrointestinal (Abdomen) normal bowel sounds, soft, nontender, no hepatosplenomegaly Neurologic PERRL, EOMI, accommodation nl, no face palsy, no dysarthria Psychiatric A+Ox3, euthymic affect Discharge Data Consultations 03/29/21 12:50 ED Decision to Admit Stat Hospital Course (1) Syncope: (2) Bradycardia: (3) Neck pain, acute: (4) Hypertension: (5) CAD (coronary artery disease): (6) Hyperlipidemia: (7) Chronic obstructive pulmonary disease: (8) Chronic cough: Micky is an 80 yo M w PMHx of HTN, CAD, HLD, GERD, idiopathic polyneuropathy, ischemic CMP, smoker, COPD, lumbar spine compression fx who presents to the ED after a witness syncope episode and fall with head strike. 1. Syncope: - Echo revealed no change since 03/2016 - Less likely a structural cardiac or valvular abnormality as primary cause - Orthostatic vitals WNL x2 - Likely d/t hypovolemia secondary to HCTZ for leg edema - HCTZ should be taken no more than 1/week - Continue Aspirin and lipitor - PT/OT evaluation demonstrating no need for acute intervention 2. Bradycardia: - EKG on admission demonstrating first degree AV block with bradycardia - Telemetry demonstrating persistent bradycardia (50s) - Decrease Metoprolol 50mg to 12.5mg - Outpt event monitor ordered following d/c 3. Peripheral edema: - Advised patient to only utilize HCTZ 12.5 mg 1x per week PRN for peripheral edema 4. Neck pain: - Patient reports returning to baseline - Pain control 5. CAD: - See above plan 6. Hyperlipidemia: - See above 7. COPD: - Continue home Ellipta inhaler 8. Chronic cough: - Trial of Benzonatate and Flonase Discharge Plan Discharge Items Patient Disposition: Home - Self-Care Reason For Visit: SYNCOPE Discharge Diagnosis: orthostatic hypotension Activity: Per Instructions section Non-emergency contact: Primary Care Provider and Post Graduate Intern Call non-emergency contact if: you have any medication questions and your symptoms worsen Follow-up/Referrals: Nissa Belle MD [Primary Care Provider] - Diet: Regular Addtl Attending Provider Instructions: You were seen and and following a dizziness spell that caused you to fall and hit your head. During this evaluation it was demonstrated that fortunately did not have significant changes as a result of this fall; however it was noticed that you had some signs of orthostatic hypotension. This may be as a result of the regular use of your hydrochlorothiazide causing a slight dehydration that worsened your balance. Fortunately enough as you are able to provide you with some IV fluids and continue to monitor your heart this demonstrated to be a short-lived complication. Now that you are being discharged, we are making some changes to your home medication regimen. These include: We have decreased her metoprolol succinate from 50 mg at night to 12.5 mg at night. Additionally we recommend that you only take the hydrochlorothiazide 12.5 mg 1 day/week as needed for this peripheral knee edema. Additionally during your evaluation it was noticed that you are having persistent bradycardia, with signs of slight change in the rhythm of your heart. This and the hypotension concerns were discussed with your filling machine operator Dr. White, and he was in agreement with decreasing your metoprolol dose as well as the frequency of her hydrochlorothiazide. Additionally we will arrange for a cardiac event monitor to be done and reviewed with your filling machine operator for continued monitoring of this potential rhythm change. Pending Studies at Discharge: No Stand-Alone Forms: My [facility], Smoking Cessation Medications and DC Order Prescriptions: New metoprolol succinate [Toprol XL] 25 mg tablet extended release 24 hr 12.5 mg PO DAILY 30 Days Qty: 15 RF: 0 benzonatate 200 mg capsule 200 mg PO TID 7 Days Qty: 21 RF: 0 Continued finasteride 5 mg tablet 5 mg PO HS Qty: 90 RF: 1 atorvastatin 80 mg tablet 80 mg PO HS Qty: 90 RF: 3 umeclidinium-vilanterol [Anoro Ellipta] 62.5-25 mcg/actuation blister with device See Rx Instructions .ROUTE .COMPLEX Qty: 180 RF: 3 gabapentin 100 mg capsule 200 mg PO PM Qty: 180 RF: 1 aspirin 81 mg tablet,delayed release (DR/EC) 81 mg PO PM RF: 0 cetirizine 10 mg tablet 10 mg PO PM RF: 0 omeprazole magnesium 20 mg capsule,delayed release(DR/EC) 20 mg PO HS PRN (Reason: Heartburn) RF: 0 albuterol sulfate [ProAir HFA] 90 mcg/actuation HFA aerosol inhaler 1 puff INH Q4 PRN (Reason: sob) RF: 0 coenzyme Q10 [Co Q-10] 100 mg capsule 200 mg PO PM RF: 0 Changed hydrochlorothiazide 12.5 mg tablet 12.5 mg PO .weekly PRN (Reason: peripheral edema) Qty: 10 RF: 1 Discontinued metoprolol succinate 100 mg tablet extended release 24 hr 50 mg PO HS Qty: 90 RF: 3 Discharge Orders: Discharge Order (Routine); Ordered 03/31/21 Ordered By: Kwame Warner Admission Data Admit Date/Time: 03/29/21 13:21 Attending Provider: Heather Oh Admit Provider: Lex Ariza Primary Care Provider: Nissa Belle Other Providers: Lex Ariza Other Interventions: Discharge Summary Assessment (RN) Last Done: 03/31/21 16:10 Supervising Attestation Medical Student Supervision Note: I was personally present during medical student patient encounter and independently interviewed and examined the patient and verified the cheek history and physical, reviewed labs and image studies, discussed the case with Susie Barnes and agree with the findings and care plan. Reiterated the need to limit hctz to once a week - to avoid hypovolemic as likely etiology of syncope.
--- NOTE | 2021-04-01 06:41 | Electrocardiogram Report ---
Test Reason : Blood Pressure : / mmHG Vent. Rate : 057 BPM Atrial Rate : 057 BPM P-R Int : 228 ms QRS Dur : 096 ms QT Int : 448 ms P-R-T Axes : 081 034 109 degrees QTc Int : 436 ms Sinus bradycardia with 1st degree A-V block T wave abnormality, consider lateral ischemia Abnormal ECG When compared with ECG of 30-MAR-2021 06:25, T wave inversion more evident in Lateral leads Confirmed by Buddy Jones ([id number]) on 04/01/2021 6:41:00 AM Referred By: REFERRED SELF Confirmed By:Buddy Jones
== END 2021-03-31 17:50 | disposition home or self-care (01) | DRG 312 ==
LOC: ED 09:50 → SUATTDRO 13:21 → 2S 13:21

== ENCOUNTER 2022-01-08 12:08 | Inpatient (IN) ==
--- NOTE | 2022-01-08 12:26 | Emergency Department Note ---
History of Present Illness General Chief complaint: Dizziness Stated complaint: DIZZY, NAUSEA, COUGH, SOB Time Seen by Provider: 01/08/22 12:13 Source: patient Mode of arrival: EMS Limitations: no limitations History of Present Illness This patient 81-year-old male who was sent over from the office after being hypotensive. He was seen here 2 days ago after falling injuring his right shoulder shoulder dislocation which was reduced he also the CAT scan of his head and neck which were unremarkable he continues have pain in the right shoulder denies abdominal pain or chest pain or shortness of breath. He has had a cough and some dizziness this morning as well. He says he feels pretty good at present with exception of an ongoing pain in the right shoulder. No blood or melena in his stool. Home Medications Medication Instructions Recorded Confirmed Type albuterol sulfate 90 mcg/actuation 1 - 2 puff inhalation Q4 PRN sob 08/25/18 01/08/22 History aerosol inhaler (ProAir HFA) aspirin 81 mg tablet,delayed 81 mg PO PM 08/25/18 01/08/22 History release cetirizine 10 mg tablet 10 mg PO PM 08/25/18 01/08/22 History omeprazole magnesium 20 mg 20 mg PO HS PRN Heartburn 08/25/18 01/08/22 History capsule,delayed release coenzyme Q10 100 mg capsule (Co 200 mg PO PM 04/24/19 01/08/22 History Q-10) hydrochlorothiazide 12.5 mg tablet 12.5 mg PO .weekly PRN peripheral 03/31/21 01/08/22 Rx edema #10 tabs atorvastatin 80 mg tablet 80 mg PO HS #90 tabs 04/10/21 01/08/22 Rx metoprolol succinate 25 mg 12.5 mg PO DAILY 90 days #45 tabs 04/14/21 01/08/22 Rx tablet,extended release 24 hr (Toprol XL) gabapentin 100 mg capsule 200 mg PO PM #180 caps 10/12/21 01/08/22 Rx umeclidinium 62.5 mcg-vilanterol See Rx Instructions .Route 11/23/21 01/08/22 Rx 25 mcg/actuation powdr for .COMPLEX #180 ea inhalation (Anoro Ellipta) finasteride 5 mg tablet 5 mg PO HS #90 tabs 12/21/21 01/08/22 Rx Allergies Allergy/AdvReac Type Severity Reaction Status Date / Time SESAR Inhibitors Allergy Unknown Unknown Verified 01/08/22 11:18 Past Med/Surg History Medical History Anxiety no meds Arthritis BPH (benign prostatic hyperplasia) CAD (coronary artery disease) follows with Dr. White COPD (chronic obstructive pulmonary disease) well controlled rare res inh use Depression no meds GERD (gastroesophageal reflux disease) Hx of fracture jaw -- no surgery -- able to open without difficulty Hyperlipidemia Hypertension Ischemic cardiomyopathy Myocardial Infarction [address]. follows [address] White. 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 History of cataract surgery bilateral History of colonoscopy History of heart artery stent X1 (02.16.2004) History of prostatectomy History of repair of rotator cuff left History of tooth extraction S/P inguinal hernia repair bilateral S/P right knee arthroscopy Family History Brother Family hx of colon cancer Family history of diabetes mellitus Colorectal cancer Father Myocardial infarction Uncle Myocardial infarction Other Lung cancer Denies family history of Ovarian cancer Prostate cancer Breast cancer Social History Smoking Status: Former smoker Tobacco Type: Cigarettes Age Started Using Tobacco: 10; packs per day: 0; Cigarettes Per Day: up to 2 per day but not every day; Second Hand Exposure: No; Hx Alcohol Use: Yes Alcohol type: beer Hx Substance Use: No Preferred Language: Estonian Communication Ability: Effective Visual Impairment: No Limitations Hearing Ability: Hard of Hearing Rubber Off Required: No Beliefs That Will Affect Care: None marital status: Current Living Situation: Spouse current occupational status: retired How many Children do You have: 2 Feels Safe at Home: Yes Childhood Exposure to Second-Hand Smoke: Yes caffeine: Yes Dental Care, Regularly: No Physical Activity Frequency: Does not Exercise Seatbelt Use: always Sunscreen Use: No Assistive Devices: Glasses Review of Systems A total of 10 systems reviewed and were otherwise negative Physical Exam Vital Signs Vital Signs - 24 hr 11/18/22 11:57 01/08/22 12:21 01/08/22 12:21 Temperature 36.5 C Temperature Source Oral Pulse Rate 70 70 Pulse Rate from SpO2 Sensor Pulse Rhythm Regular Regular Pulse Strength Normal Respiratory Rate 20 19 20 Respiratory Effort / Characteristics Non-Labored Non-Labored Respiratory Depth Normal Normal Respiratory Pattern Regular Regular Blood Pressure 143/67 H Blood Pressure [Left Arm] 143/67 H Blood Pressure Mean 92 Blood Pressure Mean [Left Arm] 92 Blood Pressure Position Lying Blood Pressure Position [Left Arm] Lying Pulse Oximetry 95 95 95 Oxygen Delivery Method Room Air Room Air Room Air Sepsis Recent Fever Within 48 Hours No Sepsis New/Unexplained Change in Mental Status N/A Sepsis Action Taken by Nursing No Action Required 01/08/22 12:27 01/08/22 12:45 01/08/22 13:00 Temperature Temperature Source Pulse Rate 78 76 Pulse Rate from SpO2 Sensor 78 Pulse Rhythm Pulse Strength Respiratory Rate 17 16 Respiratory Effort / Characteristics Respiratory Depth Respiratory Pattern Blood Pressure Blood Pressure [Left Arm] Blood Pressure Mean Blood Pressure Mean [Left Arm] Blood Pressure Position Blood Pressure Position [Left Arm] Pulse Oximetry 95 94 Oxygen Delivery Method Room Air Sepsis Recent Fever Within 48 Hours Sepsis New/Unexplained Change in Mental Status Sepsis Action Taken by Nursing 01/08/22 13:30 01/08/22 13:30 01/08/22 14:00 Temperature Temperature Source Pulse Rate 81 Pulse Rate from SpO2 Sensor 81 Pulse Rhythm Pulse Strength Respiratory Rate 18 Respiratory Effort / Characteristics Respiratory Depth Respiratory Pattern Blood Pressure 119/71 151/83 H Blood Pressure [Left Arm] Blood Pressure Mean 87 105 Blood Pressure Mean [Left Arm] Blood Pressure Position Blood Pressure Position [Left Arm] Pulse Oximetry 92 Oxygen Delivery Method Sepsis Recent Fever Within 48 Hours Sepsis New/Unexplained Change in Mental Status Sepsis Action Taken by Nursing 01/08/22 14:00 01/08/22 14:30 Temperature Temperature Source Pulse Rate 73 79 Pulse Rate from SpO2 Sensor 74 Pulse Rhythm Pulse Strength Respiratory Rate 15 12 Respiratory Effort / Characteristics Respiratory Depth Respiratory Pattern Blood Pressure Blood Pressure [Left Arm] Blood Pressure Mean Blood Pressure Mean [Left Arm] Blood Pressure Position Blood Pressure Position [Left Arm] Pulse Oximetry 95 Oxygen Delivery Method Sepsis Recent Fever Within 48 Hours Sepsis New/Unexplained Change in Mental Status Sepsis Action Taken by Nursing General: Well developed well nourished older male who appears in no acute distress, breathing comfortably on room air. Normal speech. Alert and orient x3 answers all questions appropriately with normal speech HEENT: Normal cephalic atraumatic. Pupils are equal round and reactive to light. Extraocular movements are intact. Oropharynx is pink with moist mucous membranes. No swelling of the mouth lips or tongue. Neck: Supple with a midline trachea. No meningeal signs or stiffness, no JVD or bruits. No Stridor. Chest: Clear to auscultation bilaterally. No wheezes or rhonchi. No increased work of breathing. Heart: Regular rate and rhythm without murmurs or gallops. Abdomen: Soft nontender, nondistended without rebound guarding or rigidity. Extremities: No cyanosis clubbing or edema. No calf tenderness or assymetry. Right shoulder is very tender to palpation but appears square and intact. He does have a large amount of bruising around the shoulder extending towards the elbow. Distally in the hand he has bounding pulses with normal motor and sensation. No evidence to suggest compartment syndrome Spine/Back. Non tender to palpation. No CVA tenderness Skin: Good turgor without rashes. Neurologic exam: Cranial nerves two through 12 are intact. Motor and sensation are intact and symmetrical throughout. Course Administered Medications Sodium Chloride (Nss) 500 mls @ 125 mls/hr IV .Q4H LIZZIE Stop: 02/07/22 14:29 Last Admin: 01/08/22 15:13 Dose: 125 mls/hr Documented By: TRACI Discontinued Medications Sodium Chloride (Nss 1000ml) 500 mls @ 999 mls/hr IV .Q31M ONE Stop: 01/08/22 14:58 Last Admin: 01/08/22 15:12 Dose: 999 mls/hr Documented By: TRACI Ioversol (Optiray 320 500ml) 120 ml IV ONCE ONE Stop: 01/08/22 14:18 Last Admin: 01/08/22 14:17 Dose: 120 ml Documented By: TOVA Medical Decision Making Differential Diagnosis Dehydration, vasovagal, arrhythmia, sepsis, anemia, trauma, electrolyte or metabolic abnormality Medical Records Attestation: I reviewed the patient's medical records. Home Medications Current Medication List: was personally reviewed by me Laboratory Data Attestation: I reviewed the patient's lab results. Result diagrams: 01/08/22 12:35 01/08/22 12:35 Lab Results 01/08/22 01/08/22 01/08/22 Range/Units 12:29 12:30 12:35 WBC 12.02 H (4.8-10.8) K/ul RBC 4.03 L (4.63-6.08) M/uL Hgb 12.8 L (14.0-18.0) g/dl Hct 38.1 L (40.1-51.0) % MCV 94.5 (80.0-100.0) fL MCH 31.8 (25.0-34.0) pg MCHC 33.6 (32.0-36.0) g/dL RDW Std Deviation 46.7 H (36.4-46.3) fL RDW Coeff of Indira 13.7 (11.5-14.5) % Plt Count 170 (130-400) K/uL MPV 10.3 (9.4-12.4) fL Immature Gran % (Auto) 0.3 % Neut % (Auto) 76.1 % Lymph % (Auto) 10.6 % [place] % (Auto) 11.6 % Eos % (Auto) 1.2 % Baso % (Auto) 0.2 % Neut # (Auto) 9.12 H (1.4-6.5) K/uL Lymph # (Auto) 1.28 (1.2-3.4) K/uL [place] # (Auto) 1.40 H (0.24-0.82) K/uL Eos # (Auto) 0.15 (0-0.50) K/uL Baso # (Auto) 0.03 (0-0.2) K/uL Immature Gran # (Auto) 0.04 H (0.00-0.02) K/uL Sodium (136-145) mmol/L Potassium (3.5-5.1) mmol/L Chloride (98-107) mmol/L Carbon Dioxide (21-32) mmol/L Anion Gap (3-11) BUN (6-23) mg/dl Creatinine (0.6-1.4) mg/dl Est Cr Clr Drug Dosing ml/min Est GFR ( Amer) ml/min Est GFR (Non-Af Amer) ml/min BUN/Creatinine Ratio (10-20) Glucose (70-99(Fasting)) mg/dl Lactate 2.0 (0.4-2.0) mmol/L Calcium (8.5-10.1) mg/dl Magnesium (1.7-2.4) mg/dl Total Bilirubin (0.2-1.0) mg/dl Direct Bilirubin (0-0.2) mg/dl AST (13-39) U/L ALT (7-52) U/L Alkaline Phosphatase (34-104) U/L Total Creatine Kinase (30-223) U/L Troponin I High Sens (0-20) pg/ml Total Protein (6.0-8.3) gm/dl Albumin (3.4-5.0) gm/dl Procalcitonin (0-0.5) ng/ml Urine Color Urine Appearance (Clear) Urine pH (4.5-7.5) Ur Specific [place] (1.000-1.030) Urine Protein (Negative) Urine Glucose (UA) (Negative) Urine Ketones (Negative) Urine Blood (Negative) Urine Nitrite (Negative) Urine Bilirubin (Negative) Urine Urobilinogen (Negative) Ur Leukocyte Esterase (Negative) Urine WBC (Auto) (0-5) /hpf Urine RBC (Auto) (0-4) /hpf U Hyaline Cast (Auto) (0-5) /lpf U Epithel Cells (Auto) (0-5) /lpf Urine Bacteria (Auto) (Negative) SARS-CoV-2 (PCR) (Negative) Influenza Type A (PCR) (Neg) Influenza Type B (PCR) (Neg) RSV (RT-PCR) (Neg) Blood Type A Positive Antibody Screen NEGATIVE 01/08/22 01/08/22 01/08/22 Range/Units 12:35 12:35 12:35 WBC (4.8-10.8) K/ul RBC (4.63-6.08) M/uL Hgb (14.0-18.0) g/dl Hct (40.1-51.0) % MCV (80.0-100.0) fL MCH (25.0-34.0) pg MCHC (32.0-36.0) g/dL RDW Std Deviation (36.4-46.3) fL RDW Coeff of Indira (11.5-14.5) % Plt Count (130-400) K/uL MPV (9.4-12.4) fL Immature Gran % (Auto) % Neut % (Auto) % Lymph % (Auto) % [place] % (Auto) % Eos % (Auto) % Baso % (Auto) % Neut # (Auto) (1.4-6.5) K/uL Lymph # (Auto) (1.2-3.4) K/uL [place] # (Auto) (0.24-0.82) K/uL Eos # (Auto) (0-0.50) K/uL Baso # (Auto) (0-0.2) K/uL Immature Gran # (Auto) (0.00-0.02) K/uL Sodium 134 L (136-145) mmol/L Potassium 4.3 (3.5-5.1) mmol/L Chloride 102 (98-107) mmol/L Carbon Dioxide 23 (21-32) mmol/L Anion Gap 9 (3-11) BUN 37 H (6-23) mg/dl Creatinine 1.70 H (0.6-1.4) mg/dl Est Cr Clr Drug Dosing 35.7 ml/min Est GFR ( Amer) 42.6 ml/min Est GFR (Non-Af Amer) 36.7 ml/min BUN/Creatinine Ratio 21.8 H (10-20) Glucose 90 (70-99(Fasting)) mg/dl Lactate (0.4-2.0) mmol/L Calcium 8.6 (8.5-10.1) mg/dl Magnesium 2.2 (1.7-2.4) mg/dl Total Bilirubin 0.9 (0.2-1.0) mg/dl Direct Bilirubin 0.2 (0-0.2) mg/dl AST 92 H (13-39) U/L ALT 31 (7-52) U/L Alkaline Phosphatase 77 (34-104) U/L Total Creatine Kinase 4326 H (30-223) U/L Troponin I High Sens 31.9 H (0-20) pg/ml Total Protein 6.7 (6.0-8.3) gm/dl Albumin 3.9 (3.4-5.0) gm/dl Procalcitonin 0.16 (0-0.5) ng/ml Urine Color Urine Appearance (Clear) Urine pH (4.5-7.5) Ur Specific [place] (1.000-1.030) Urine Protein (Negative) Urine Glucose (UA) (Negative) Urine Ketones (Negative) Urine Blood (Negative) Urine Nitrite (Negative) Urine Bilirubin (Negative) Urine Urobilinogen (Negative) Ur Leukocyte Esterase (Negative) Urine WBC (Auto) (0-5) /hpf Urine RBC (Auto) (0-4) /hpf U Hyaline Cast (Auto) (0-5) /lpf U Epithel Cells (Auto) (0-5) /lpf Urine Bacteria (Auto) (Negative) SARS-CoV-2 (PCR) (Negative) Influenza Type A (PCR) (Neg) Influenza Type B (PCR) (Neg) RSV (RT-PCR) (Neg) Blood Type Antibody Screen 01/08/22 01/08/22 Range/Units 12:44 13:30 WBC (4.8-10.8) K/ul RBC (4.63-6.08) M/uL Hgb (14.0-18.0) g/dl Hct (40.1-51.0) % MCV (80.0-100.0) fL MCH (25.0-34.0) pg MCHC (32.0-36.0) g/dL RDW Std Deviation (36.4-46.3) fL RDW Coeff of Indira (11.5-14.5) % Plt Count (130-400) K/uL MPV (9.4-12.4) fL Immature Gran % (Auto) % Neut % (Auto) % Lymph % (Auto) % [place] % (Auto) % Eos % (Auto) % Baso % (Auto) % Neut # (Auto) (1.4-6.5) K/uL Lymph # (Auto) (1.2-3.4) K/uL [place] # (Auto) (0.24-0.82) K/uL Eos # (Auto) (0-0.50) K/uL Baso # (Auto) (0-0.2) K/uL Immature Gran # (Auto) (0.00-0.02) K/uL Sodium (136-145) mmol/L Potassium (3.5-5.1) mmol/L Chloride (98-107) mmol/L Carbon Dioxide (21-32) mmol/L Anion Gap (3-11) BUN (6-23) mg/dl Creatinine (0.6-1.4) mg/dl Est Cr Clr Drug Dosing ml/min Est GFR ( Amer) ml/min Est GFR (Non-Af Amer) ml/min BUN/Creatinine Ratio (10-20) Glucose (70-99(Fasting)) mg/dl Lactate (0.4-2.0) mmol/L Calcium (8.5-10.1) mg/dl Magnesium (1.7-2.4) mg/dl Total Bilirubin (0.2-1.0) mg/dl Direct Bilirubin (0-0.2) mg/dl AST (13-39) U/L ALT (7-52) U/L Alkaline Phosphatase (34-104) U/L Total Creatine Kinase (30-223) U/L Troponin I High Sens (0-20) pg/ml Total Protein (6.0-8.3) gm/dl Albumin (3.4-5.0) gm/dl Procalcitonin (0-0.5) ng/ml Urine Color Yellow Urine Appearance Clear (Clear) Urine pH 5.0 (4.5-7.5) Ur Specific [place] 1.007 (1.000-1.030) Urine Protein Negative (Negative) Urine Glucose (UA) Negative (Negative) Urine Ketones Negative (Negative) Urine Blood 1+ H (Negative) Urine Nitrite Negative (Negative) Urine Bilirubin Negative (Negative) Urine Urobilinogen Negative (Negative) Ur Leukocyte Esterase Negative (Negative) Urine WBC (Auto) 1-5 (0-5) /hpf Urine RBC (Auto) 0-4 (0-4) /hpf U Hyaline Cast (Auto) 1-5 (0-5) /lpf U Epithel Cells (Auto) 0-5 (0-5) /lpf Urine Bacteria (Auto) Negative (Negative) SARS-CoV-2 (PCR) NEGATIVE (Negative) Influenza Type A (PCR) Negative (Neg) Influenza Type B (PCR) Negative (Neg) RSV (RT-PCR) Negative (Neg) Blood Type Antibody Screen Imaging Data Attestation: I personally reviewed and interpreted this imaging study as follows: My Impression: Chest x-rayno acute infiltrate, failure, pneumothorax Radiologist's Impression: Chest X-Ray 01/08/22 12:21 XR chest 1V portable HISTORY: Sepsis COMPARISON: Chest 01/06/2022. FINDINGS: No pneumothorax. No pleural effusions. A few bibasilar linear densities which favor subsegmental atelectasis or scarring. Otherwise, lungs are clear. No evidence for pulmonary edema. Mildly tortuous thoracic aorta. The heart remains top normal in size. IMPRESSION: No acute process. ACT 112: Negative or not required by law. Electronically signed by: Shorty Nicole M.D. 01/08/2022 2:09 PM Abdomen/Pelvis CT 01/08/22 14:00 CT ANGIOGRAM OF THE CHEST; CT SCAN OF THE ABDOMEN AND PELVIS WITH IV CONTRAST CLINICAL HISTORY: Productive cough. Dyspnea. Fall. Hypotension. Recent shoulder dislocation. COMPARISON STUDY: Chest x-ray dated 01/08/2022. CT scans of the chest, abdomen, and pelvis dated 03/29/2021. TECHNIQUE: Following the IV administration of 120 of Optiray 320, CT angiogram of the chest is performed from the upper abdomen to the thoracic inlet utilizing the pulmonary embolus protocol. Images are reviewed in the axial, sagittal, coronal planes. 3-D MIPS images are created and assessed. Subsequently, CT scan of the abdomen and pelvis was performed from the lung bases to the proximal femora. Images are reviewed in the axial, sagittal, and coronal planes. IV contrast was administered without complication. A dose lowering technique was utilized adhering to the principles of ALARA. The examination is degraded by motion artifact, as well as by streak artifact from the right arm which could not be elevated above the chest or abdomen. CT DOSE: 1359.95 mGycm FINDINGS: CHEST: Thyroid: Imaged portions of the thyroid gland are normal in size and attenuation. Thoracic aorta: There is atherosclerotic calcification of the thoracic aorta, which is normal in caliber and demonstrates bovine variant arch anatomy. No dissection is seen. Pulmonary vasculature: The pulmonary trunk is normal in caliber. There are no filling defects identified in the main, lobar, or segmental pulmonary arteries to indicate pulmonary embolus. Heart: The heart is enlarged and without pericardial effusion. Lungs and pleural spaces: There is moderate emphysema. Minimal dependent opacities are seen in the right lung, greatest the right lung base. No pleural effusion or pneumothorax is identified. Subpleural reticulation is seen throughout both lungs with numerous foci of parenchymal scarring. Layering secre tions are noted in the trachea. There is peribronchial thickening in the lower lobes, right greater than left with intraluminal debris/mucus plugging. Mediastinum: There is no mediastinal lymphadenopathy. Arabella: Clear. Axillae: There is no axillary lymphadenopathy. Bony thorax: The skeletal structures are osteopenic. Mild anterior wedging of T12 is similar to previous. The bony thorax appears intact. No lytic or blastic lesions are identified. Soft tissues: There is contusion/hemorrhage identified in the right shoulder/axillary soft tissues. This extends inferiorly along the right chest wall. There is intramuscular hemorrhage within the right pectoralis and trape zius muscles. ABDOMEN AND PELVIS: Liver: The contrast-enhanced liver is normal in size, contour, and attenuation. There is no intrahepatic biliary ductal dilatation. The hepatic veins and portal veins are patent. Gallbladder: Unremarkable. Spleen: Normal in size and attenuation. Pancreas: Unremarkable. Adrenal glands: Unremarkable. Kidneys: The contrast enhanced kidneys demonstrate mild cortical atrophy and are without hydronephrosis. The kidneys enhance symmetrically. Scattered subcentimeter cortical hypodensities likely represent cysts but are too small for definitive catheterization. Punctate nonobstructing calculus is seen on the left. Abdominal vasculature: There is advanced atherosclerotic calcification of the abdominal aorta and iliac arteries. A small infrarenal abdominal aneurysm measures up to 3.6 cm. Stomach and bowel: There is a small hiatal hernia. There is sigmoid diverticulosis without CT evidence of acute diverticulitis. No bowel obstruction is seen. Mild/moderate fecal retention is present throughout the colon. Duodenal diverticula are noted. The appendix is well-visualized and normal. Peritoneum: There is no intraperitoneal free air or abdominal ascites. Lymphadenopathy: None. Pelvic viscera: The prostate gland is enlarged and heterogeneous noting median lobe hypertrophy. The bladder wall is mildly thickened and trabeculated indicati ng chronic outlet obstruction. There is a small fat-containing right inguinal hernia, as well as evidence of previous left inguinal herniorrhaphy. Skeletal structures: The skeletal structures are osteopenic. The lumbosacral spine, bony pelvis, and proximal femora appear intact. There is moderate lumbosacral spondylosis. Bilateral pars defects are noted at L5. No lytic or blastic lesions are seen. IMPRESSION: 1. There is contusion/hemorrhage seen around the right shoulder/axilla, likely related to recent shoulder dislocation. Additionally, there is intramuscular hemorrhage within the right pectoralis and trapezius muscles. 2. Cardiomegaly and emphysema. 3. There is no evidence of pulmonary embolus in the main, lobar, or segmental pulmonary arteries. 4. Bibasilar peribronchial/pulmonary parenchymal changes as above, right significantly greater than left. This could be related to aspiration and clinical correlation will be required. 5. There is no pneumothorax or pleural effusion. 6. There is no evidence of solid organ injury in the abdomen or pelvis. 7. There is a 3.6 cm infrarenal abdominal aortic aneurysm. 8. Additional findings as above. ACT 112: Negative or not required by law. Electronically signed by: Britton Martins M.D. 01/08/2022 2:53 PM Chest CTA 01/08/22 14:00 CT ANGIOGRAM OF THE CHEST; CT SCAN OF THE ABDOMEN AND PELVIS WITH IV CONTRAST CLINICAL HISTORY: Productive cough. Dyspnea. Fall. Hypotension. Recent shoulder dislocation. COMPARISON STUDY: Chest x-ray dated 01/08/2022. CT scans of the chest, abdomen, and pelvis dated 03/29/2021. TECHNIQUE: Following the IV administration of 120 of Optiray 320, CT angiogram of the chest is performed from the upper abdomen to the thoracic inlet utilizing the pulmonary embolus protocol. Images are reviewed in the axial, sagittal, coronal planes. 3-D MIPS images are created and assessed. Subsequently, CT scan of the abdomen and pelvis was performed from the lung bases to the proximal femora. Images are reviewed in the axial, sagittal, and coronal planes. IV contrast was administered without complication. A dose lowering technique was utilized adhering to the principles of ALARA. The examination is degraded by motion artifact, as well as by streak artifact from the right arm which could not be elevated above the chest or abdomen. CT DOSE: 1359.95 mGycm FINDINGS: CHEST: Thyroid: Imaged portions of the thyroid gland are normal in size and attenuation. Thoracic aorta: There is atherosclerotic calcification of the thoracic aorta, which is normal in caliber and demonstrates bovine variant arch anatomy. No dissection is seen. Pulmonary vasculature: The pulmonary trunk is normal in caliber. There are no filling defects identified in the main, lobar, or segmental pulmonary arteries to indicate pulmonary embolus. Heart: The heart is enlarged and without pericardial effusion. Lungs and pleural spaces: There is moderate emphysema. Minimal dependent opacities are seen in the right lung, greatest the right lung base. No pleural effusion or pneumothorax is identified. Subpleural reticulation is seen throughout both lungs with numerous foci of parenchymal scarring. Layering secretions are noted in the trachea. There is peribronchial thickening in the lower lobes, right greater than left with intraluminal debris/mucus plugging. Mediastinum: There is no mediastinal lymphadenopathy. Arabella: Clear. Axillae: There is no axillary lymphadenopathy. Bony thorax: The skeletal structures are osteopenic. Mild anterior wedging of T12 is similar to previous. The bony thorax appears intact. No lytic or blastic lesions are identified. Soft tissues: There is contusion/hemorrhage identified in the right shoulder/axillary soft tissues. This extends inferiorly along the right chest wall. There is intramuscular hemorrhage within the right pectoralis and trapezi us muscles. ABDOMEN AND PELVIS: Liver: The contrast-enhanced liver is normal in size, contour, and attenuation. There is no intrahepatic biliary ductal dilatation. The hepatic veins and portal veins are patent. Gallbladder: Unremarkable. Spleen: Normal in size and attenuation. Pancreas: Unremarkable. Adrenal glands: Unremarkable. Kidneys: The contrast enhanced kidneys demonstrate mild cortical atrophy and are without hydronephrosis. The kidneys enhance symmetrically. Scattered subcentimeter cortical hypodensities likely represent cysts but are too small for definitive catheterization. Punctate nonobstructing calculus is seen on the left. Abdominal vasculature: There is advanced atherosclerotic calcification of the abdominal aorta and iliac arteries. A small infrarenal abdominal aneurysm measures up to 3.6 cm. Stomach and bowel: There is a small hiatal hernia. There is sigmoid diverticulosis without CT evidence of acute diverticulitis. No bowel obstruction is seen. Mild/moderate fecal retention is present throughout the colon. Duodenal diverticula are noted. The appendix is well-visualized and normal. Peritoneum: There is no intraperitoneal free air or abdominal ascites. Lymphadenopathy: None. Pelvic viscera: The prostate gland is enlarged and heterogeneous noting median lobe hypertrophy. The bladder wall is mildly thickened and trabeculated indicating chronic outlet obstruction. There is a small fat-containing right inguinal hernia, as well as evidence of previous left inguinal herniorrhaphy. Skeletal structures: The skeletal structures are osteopenic. The lumbosacral spine, bony pelvis, and proximal femora appear intact. There is moderate lumbosacral spondylosis. Bilateral pars defects are noted at L5. No lytic or bl astic lesions are seen. IMPRESSION: 1. There is contusion/hemorrhage seen around the right shoulder/axilla, likely related to recent shoulder dislocation. Additionally, there is intramuscular hemorrhage within the right pectoralis and trapezius muscles. 2. Cardiomegaly and emphysema. 3. There is no evidence of pulmonary embolus in the main, lobar, or segmental pulmonary arteries. 4. Bibasilar peribronchial/pulmonary parenchymal changes as above, right significantly greater than left. This could be related to aspiration and clinical correlation will be required. 5. There is no pneumothorax or pleural effusion. 6. There is no evidence of solid organ injury in the abdomen or pelvis. 7. There is a 3.6 cm infrarenal abdominal aortic aneurysm. 8. Additional findings as above. ACT 112: Negative or not required by law. Electronically signed by: Britton Martins M.D. 01/08/2022 2:53 PM ECG Data Attestation: I personally reviewed and interpreted this ECG as follows: Indication: + back/shoulder pain and + weakness Rate (beats per minute): 69 Rhythm: + normal sinus and + other (Poor baseline which may affect interpretation) ECG Intervals/blocks: + Normal QRS, + Normal QT and + Normal SD ECG [place]: + Normal ECG ST segments: + T-wave inversions (Lateral) ECG Findings: no PACs or no PVCs Comparison ECG Date: from (01/06/22) Change: no significant change (The T wave inversions are old and were present on previous EKG. There is no longer ectopy which was present on the previous EKG) MDM Narrative This patient comes in as described above. He was placed in room B7. He is here for treatment and evaluation of hypotension he seems to be feeling better at present he has been have a lot of pain with this recent shoulder injury denies any injury to the abdomen or torso. He is apparently at a cough and dizziness. Given his symptoms he is felt that he needed a work-up for infection/sepsis as well as trauma anemia dehydration and cardiac disease which could also all be causing his symptoms. His initial blood pressure here was 140 systolic. He does have a history of cardiomyopathy in light of this, I was more careful with the fluids and started with just a 500 cc normal saline bolus. He had multiple blood test including blood cultures and type and cross. He was reassessed frequently. EKG does not suggest any acute changes compared to old. His white count is 12 and down significantly from the other day he runs about this range. Hemoglobin has dropped a little bit compared to the other day and it may be related to the large hematoma in his right arm. He has no significant electrolyte or metabolic abnormalities with the exception of a creatinine of 1.7 that is mildly elevated. I did order a second troponin. His CK came back moderately elevated 4000. He was given gentle hydration here as well. CAT scans of his chest and abdomen do not show any evidence of PE he is got a contusion/hematoma in the right shoulder and intramuscular hematomas in the chest and neck. This may explain his moderate drop in hemoglobin. I do think he needs to be admitted/observed and further gently hydrated. I did consult Dr. Lizarraga to see him in the office measures. When I did talk to the PA they want to be a CAT scan of his head as well. I did order this. Continuous cardiac monitoring: An order was placed in EMR for continuous cardiac monitoring. Upon my interpretation patient noted to be in normal sinus rhythm with a rate of 80. Impression & Plan Hypotension, Fall, Hematoma and contusion, Elevated troponin, Rhabdomyolysis Discharge Plan Visit Data Chief Complaint: Dizziness Stated Complaint: DIZZY, NAUSEA, COUGH, SOB ED Provider: Jose Guadalupe Nichole Discharge Problem: Hypotension, Fall, Hematoma and contusion, Elevated troponin, Rhabdomyolysis Forms Stand Alone Forms: My [facility] Prescriptions Prescriptions: No Action atorvastatin 80 mg tablet 80 mg PO HS Qty: 90 3RF metoprolol succinate [Toprol XL] 25 mg tablet extended release 24 hr 12.5 mg PO DAILY 90 Days Qty: 45 3RF gabapentin 100 mg capsule 200 mg PO PM Qty: 180 1RF Anoro Ellipta 62.5-25 mcg/actuation blister with device See Rx Instructions .ROUTE .COMPLEX Qty: 180 3RF Dose Instruction: INHAL ONE PUFF BY MOUTH DAILY Rx Instructions: INHAL ONE PUFF BY MOUTH DAILY finasteride 5 mg tablet 5 mg PO HS Qty: 90 1RF aspirin 81 mg tablet,delayed release (DR/EC) 81 mg PO PM cetirizine 10 mg tablet 10 mg PO PM omeprazole magnesium 20 mg capsule,delayed release(DR/EC) 20 mg PO HS PRN (Reason: Heartburn) albuterol sulfate [ProAir HFA] 90 mcg/actuation HFA aerosol inhaler 1 - 2 puff INH Q4 PRN (Reason: sob) Label Comments: 1-2 PUFFS INH EVERY 4-6 HOURS PRN; Rx Instructions: 1-2 PUFFS INH EVERY 4-6 HOURS PRN; coenzyme Q10 [Co Q-10] 100 mg capsule 200 mg PO PM hydrochlorothiazide 12.5 mg tablet 12.5 mg PO .weekly PRN (Reason: peripheral edema) Qty: 10 1RF Referrals Referrals: Nissa Belle MD [Primary Care Provider] - : Hypotension Qualifiers: Hypotension type: unspecified hypotension type Qualified Code(s): I95.9 - Hypotension, unspecified Fall Qualifiers: Encounter type: initial encounter Qualified Code(s): W19.XXXA - Unspecified fall, initial encounter Rhabdomyolysis Qualifiers: Rhabdomyolysis type: traumatic Encounter type: initial encounter Qualified Code(s): T79.6XXA - Traumatic ischemia of muscle, initial encounter
[2022-01-08 13:00] LABS: Basophils # (auto) 0.03 K/uL (0-0.2); Basophils % (auto) 0.2 %; Eosinophils # (auto) 0.15 K/uL (0-0.50); Eosinophils % (auto) 1.2 %; Hematocrit (blood only) 38.1 % (40.1-51.0); Hemoglobin 12.8 g/dl (14.0-18.0); Immature Granulocytes # (auto) 0.04 K/uL (0.00-0.02); Immature Granulocytes % (auto) 0.3 %; Lymphocytes # (auto) 1.28 K/uL (1.2-3.4); Lymphocytes % (auto) 10.6 %; Mean Corpuscular Hemoglobin 31.8 pg (25.0-34.0); Mean Corpuscular Hgb Conc 33.6 g/dL (32.0-36.0); Mean Corpuscular Volume 94.5 fL (80.0-100.0); Mean Platelet Volume 10.3 fL (9.4-12.4); Monocytes % (auto) 11.6 %; Neutrophils # (auto) 9.12 K/uL (1.4-6.5); Neutrophils % (auto) 76.1 %; Platelet Count 170 K/uL (130-400); RDW Coefficient of Variation 13.7 % (11.5-14.5); RDW Standard Deviation 46.7 fL (36.4-46.3); Red Blood Count 4.03 M/uL (4.63-6.08); White Blood Count 12.02 K/ul (4.8-10.8)
[2022-01-08 13:30] LABS: Troponin I High Sensitivity 31.9 pg/ml (0-20)
[2022-01-08 13:43] LABS: Influenza A virus by PCR Negative (Neg); Influenza B virus by PCR Negative (Neg); RSV by PCR Negative (Neg); SARS CoV2 RNA(COVID-19)Cepheid NEGATIVE (Negative)
[2022-01-08 13:47] LABS: Appearance Urine Clear (Clear); Bacteria Urine Automated Negative (Negative); Bilirubin Urine Negative (Negative); Blood Urine 1+ (Negative); Color Urine Yellow; Epithelial Cell Urine Auto 0-5 /lpf (0-5); Glucose Urine UA Negative (Negative); Ketones Urine Negative (Negative); Leukocyte Esterase Urine Negative (Negative); Nitrite Urine Negative (Negative); Protein Urine Negative (Negative); RBC Urine Automated 0-4 /hpf (0-4); Specific Gravity Urine 1.007 (1.000-1.030); Urobilinogen Urine Negative (Negative)
[2022-01-08 13:50] LABS: Albumin Level 3.9 gm/dl (3.4-5.0); BUN Creatinine Ratio 21.8 (10-20); Bilirubin,Total 0.9 mg/dl (0.2-1.0); Calcium 8.6 mg/dl (8.5-10.1); Creatinine Clr Calc Pharmacy 35.7 ml/min; Est GFR (African American) 42.6 ml/min; Est GFR (Non-African American) 36.7 ml/min; Magnesium 2.2 mg/dl (1.7-2.4); Potassium 4.3 mmol/L (3.5-5.1); Total Protein 6.7 gm/dl (6.0-8.3)
[2022-01-08 13:51] LABS: Bilirubin Direct 0.2 mg/dl (0-0.2)
--- NOTE | 2022-01-08 13:54 | Electrocardiogram Report ---
Test Reason : Blood Pressure : / mmHG Vent. Rate : 069 BPM Atrial Rate : 081 BPM P-R Int : 000 ms QRS Dur : 090 ms QT Int : 398 ms P-R-T Axes : 000 022 124 degrees QTc Int : 426 ms Poor data quality, interpretation may be adversely affected Sinus rhythm T wave abnormality, consider lateral ischemia Abnormal ECG When compared with ECG of 06-JAN-2022 11:57, T wave inversion less evident in Lateral leads Premature ventricular complexes are no longer Present Confirmed by Josh Gooden ([id number]) on 01/08/2022 1:54:32 PM Referred By: Confirmed By:Josh Gooden
--- NOTE | 2022-01-08 14:11 | XRay Report ---
XR chest 1V portable HISTORY: Sepsis COMPARISON: Chest 01/06/2022. FINDINGS: No pneumothorax. No pleural effusions. A few bibasilar linear densities which favor subsegm ental atelectasis or scarring. Otherwise, lungs are clear. No evidence for pulmonary edema. Mildly to rtuous thoracic aorta. The heart remains top normal in size. IMPRESSION: No acute process. ACT 112: Negative or not required by law. Electronically signed by: Shorty Nicole M.D. 01/08/2022 2:09 PM
[2022-01-08] MEDS ORDERED: OPTIRAY 320 500ml IV ONE (14:17)
[2022-01-08] MEDS ORDERED: SODIUM CHLORIDE 0.9% 1000ML 500 ML IV ONE (14:28)
[2022-01-08] MEDS ORDERED: SODIUM CHLORIDE 0.9% 500 ML IV SCH (14:30)
--- NOTE | 2022-01-08 14:54 | CT Scan Report ---
CT ANGIOGRAM OF THE CHEST; CT SCAN OF THE ABDOMEN AND PELVIS WITH IV CONTRAST CLINICAL HISTORY: Productive cough. Dyspnea. Fall. Hypotension. Recent shoulder dislocation. COMPARISON STUDY: Chest x-ray dated 01/08/2022. CT scans of the chest, abdomen, and pelvis dated 03/29. TECHNIQUE: Following the IV administration of 120 of Optiray 320, CT angiogram of the chest is perfor med from the upper abdomen to the thoracic inlet utilizing the pulmonary embolus protocol. Images are reviewed in the axial, sagittal, coronal planes. 3-D MIPS images are created and assessed. Subsequen tly, CT scan of the abdomen and pelvis was performed from the lung bases to the proximal femora. Imag es are reviewed in the axial, sagittal, and coronal planes. IV contrast was administered without comp lication. A dose lowering technique was utilized adhering to the principles of ALARA. The examination is degraded by motion artifact, as well as by streak artifact from the right arm which could not be elevated above the chest or abdomen. CT DOSE: 1359.95 mGycm FINDINGS: CHEST: Thyroid: Imaged portions of the thyroid gland are normal in size and attenuation. Thoracic aorta: There is atherosclerotic calcification of the thoracic aorta, which is normal in huseyin roderick and demonstrates bovine variant arch anatomy. No dissection is seen. Pulmonary vasculature: The pulmonary trunk is normal in caliber. There are no filling defects identif ied in the main, lobar, or segmental pulmonary arteries to indicate pulmonary embolus. Heart: The heart is enlarged and without pericardial effusion. Lungs and pleural spaces: There is moderate emphysema. Minimal dependent opacities are seen in the ri ght lung, greatest the right lung base. No pleural effusion or pneumothorax is identified. Subpleural reticulation is seen throughout both lungs with numerous foci of parenchymal scarring. Layering secr etions are noted in the trachea. There is peribronchial thickening in the lower lobes, right greater than left with intraluminal debris/mucus plugging. Mediastinum: There is no mediastinal lymphadenopathy. Arabella: Clear. Axillae: There is no axillary lymphadenopathy. Bony thorax: The skeletal structures are osteopenic. Mild anterior wedging of T12 is similar to previ ous. The bony thorax appears intact. No lytic or blastic lesions are identified. Soft tissues: There is contusion/hemorrhage identified in the right shoulder/axillary soft tissues. T his extends inferiorly along the right chest wall. There is intramuscular hemorrhage within the right pectoralis and trapezius muscles. ABDOMEN AND PELVIS: Liver: The contrast-enhanced liver is normal in size, contour, and attenuation. There is no intrahepa tic biliary ductal dilatation. The hepatic veins and portal veins are patent. Gallbladder: Unremarkable. Spleen: Normal in size and attenuation. Pancreas: Unremarkable. Adrenal glands: Unremarkable. Kidneys: The contrast enhanced kidneys demonstrate mild cortical atrophy and are without hydronephros is. The kidneys enhance symmetrically. Scattered subcentimeter cortical hypodensities likely represen t cysts but are too small for definitive catheterization. Punctate nonobstructing calculus is seen on the left. Abdominal vasculature: There is advanced atherosclerotic calcification of the abdominal aorta and breana ac arteries. A small infrarenal abdominal aneurysm measures up to 3.6 cm. Stomach and bowel: There is a small hiatal hernia. There is sigmoid diverticulosis without CT evidenc e of acute diverticulitis. No bowel obstruction is seen. Mild/moderate fecal retention is present thr oughout the colon. Duodenal diverticula are noted. The appendix is well-visualized and normal. Peritoneum: There is no intraperitoneal free air or abdominal ascites. Lymphadenopathy: None. Pelvic viscera: The prostate gland is enlarged and heterogeneous noting median lobe hypertrophy. The bladder wall is mildly thickened and trabeculated indicating chronic outlet obstruction. There is a s mall fat-containing right inguinal hernia, as well as evidence of previous left inguinal herniorrhaph y. Skeletal structures: The skeletal structures are osteopenic. The lumbosacral spine, bony pelvis, and proximal femora appear intact. There is moderate lumbosacral spondylosis. Bilateral pars defects are noted at L5. No lytic or blastic lesions are seen. IMPRESSION: 1. There is contusion/hemorrhage seen around the right shoulder/axilla, likely related to recent shou lder dislocation. Additionally, there is intramuscular hemorrhage within the right pectoralis and tra pezius muscles. 2. Cardiomegaly and emphysema. 3. There is no evidence of pulmonary embolus in the main, lobar, or segmental pulmonary arteries. 4. Bibasilar peribronchial/pulmonary parenchymal changes as above, right significantly greater than l eft. This could be related to aspiration and clinical correlation will be required. 5. There is no pneumothorax or pleural effusion. 6. There is no evidence of solid organ injury in the abdomen or pelvis. 7. There is a 3.6 cm infrarenal abdominal aortic aneurysm. 8. Additional findings as above. ACT 112: Negative or not required by law. Electronically signed by: Britton Martins M.D. 01/08/2022 2:53 PM
--- NOTE | 2022-01-08 15:44 | History & Physical Report ---
Date of Service January 08, 2022 Assessment & Plan (1) Brainstem hemorrhage: Plan: -CT brain without contrast is showing a possible left parafalcine subdural hemorrhage -Spoke with our Welfare Director ent surgeon who recommended the ED speak with a tertiary care center Neurosurgery team prior to accepting the patient for admission -[facility] recommending patient stay here for now with follow-up CT head in the morning -Admit to the ICU -Hold anticoagulation including aspirin for now -q4h Neuro checks, CT head ordered for 0700 tomorrow morning -If any changes in symptoms or neuro exam would get STAT CT head to monitor hemorrhage (2) Rhabdomyolysis: Plan: -Patient is currently afebrile, hemodynamically stable, and stable on RA -CK elevated into the 4000's on labs today, likely due to his fall and being down for an extended period of time on 01/06 -He does have an increase in his Cr to 1.7, baseline appears to be around 1.3, he likely has a mild PASTORA at this time -Patient was given 1L NSS bolus in the ED, will continue IV hydration for now with Lactated Ringer's -Will trend CK q6h moving forward until it reaches a plateau -Avoid nephrotoxic agents until his renal function returns to baseline -Monitor am CMP, renal function, and electrolytes (3) Pre-syncope: Plan: -Patient noted feeling lightheaded, dizzy, and feeling as though he may pass out early this am when he woke up. -He did not take his antihypertensives today -Patient also has a history of orthostatic hypotension in the past with bradycardia, his metoprolol has been reduced in the past for this problems. Could also be a symptom of his possible subdural hemorrhage -No active ECG changes noted from today, his symptoms could be from dehydration, will also need to continue monitor for signs of bleeding with q6h CBC moving forward -Did confirm with the radiologist that they saw no active hemorrhage on CTA of the chest, abdomen, and pelvis -Will also obtain orthostatic vitals -Monitor on tele for now -Hold statin while CK is elevated, will also hold HCTZ with his PASTORA (4) Hypotension: Plan: -Reportedly hypotensive with systolic BP in the 60's-70's at his PCP's office this morning, has been hemodynamically stable since arriving to the ED -Will hold HCTZ for now but will continue metoprolol -If he continues to be symptomatic may need to consider dosing adjustment of his metoprolol -FU orthostatic hypotension results (5) Elevated troponin: Plan: -Initial troponin noted to be 31.9, repeat at 32.2, likely elevated due to CK elevation and PASTORA -Patient is without chest pain and ECG changes -Will stop trending troponin for now (6) Anterior shoulder dislocation: Plan: -Continue right arm in sling -Pain control with Tylenol and lidocaine patch to start (7) BPH (benign prostatic hyperplasia): Plan: -Continue finasteride (8) Hypertension: Plan: -Hold HCTZ for now but will continue metoprolol as he has been hemodynamically stable since arrival to the ED (9) Hyperlipidemia: Plan: -Hold statin until CK is back at baseline (10) GERD without esophagitis: Plan: -Continue omeprazole (11) Chronic obstructive pulmonary disease: Plan: -Continue breathing treatments -Will add incentive spirometry and flutter therapy (12) CAD (coronary artery disease): Plan: -Hold statin with current Rhabdo and hold aspirin until he is stable from the Subdural hemorrhage Plan The patient was discussed with Dr. Barney at the time of the admisison History of Present Illness Chief Complaint: Dizziness, hypotension, nausea, recent fall Primary Care Provider: Nissa Belle MD Micky is an 81 year old male with a pMH significant for HTN, bradycardia, CAD, orthostatic hypotension, hyperlipidemia, COPD, GERD, idiopathic polyneuropathy, BPH, who presented to the to the [facility] ED on 01/08/22 from his PCP's office due to concerns for hypotension, dizziness, and nausea. Per chart review, the patient was last seen in the [facility] ED on 01/06/22 due to a fall outside and right anterior shoulder dislocation. During that visit the patient was found to be afebrile, hemodynamically stable, and stable on RA. Labs were remarkable for a leukocytosis of 22.73, left shift of 19.66, stable Hgb at 15, Cr of 1.46 (baseline appears to be approximately 1.3), stable electrolytes, and stable liver function. ECG showed sinus rhythm with frequent PVC's, as well as nonspecific T wave abnormalities in the inferior and lateral leads. Xrays of the right shoulder, humerus, and forearm showed "Right anterior shoulder dislocation with a probable small Hill-Sachs impaction fracture. CXR was negative for acute processes in the chest but again demonstrated the right anterior shoulder dislocation. CT of the head and C-spine were negative for acute findings. He was given local analgesia and his right shoulder dislocation was successfully reduced in the ED and arm placed in a sling. The patient had blood cultures dra coffey for precaution due to his leukocytosis and left shift, both of which are no growth to date at this time. Today, the patient arrived to his PCP's office for ED visit follow up. He was noted to be hypotensive with pressures of 78/50 and 68/42. The patient also expressed feeling lightheaded, dizzy, nauseous, and having episodes of presyncope at home. Due to the blood pressure and symptoms his PCP recommended he come to the ER to be evaluated. His PCP specifically mentioned being concerned for a delayed brain bleed. The patient tells me that since arriving home from his ED visit on 01/06 he has been experiencing lightheadedness, dizziness, headache, and nausea without visiting. He states that his lightheadedness and dizziness occurred both at rest and with position change. He denies recent fever, chills, changes in vision, hearing, taste, and smell, chest pain, SOB, abdominal pain, vomiting, diarrhea, dysuria, and recent falls. He did note that yesterday his urine was brown and he wasn't sure if it was bloody. He reports good urine output and states that his urine is now clear. In the ED today the patient was found to be afebrile, hemodynamically stable, and stable on RA. Labs were significant for an improving leukocytosis from 22 to 12, improving left shift from 19.66 to 9.12, drop in Hgb from 15.o to 12.8, cr of 1.7, sodium of 134, AST of 92, CK of 4326, high sensitivity troponin of 32, procal of 0.16, clean UA, and negative covid, flu, and RSV screen. Chest xray was negative for acute findings. CTA of the chest, abdomen, and pelvis showed "There is contusion/hemorrhage seen around the right shoulder/axilla, likely related to recent shoulder dislocation. Additionally, there is intramuscular hemorrhage within the right pectoralis and trapezius muscles. Cardiomegaly and emphysema. There is no evidence of pulmonary embolus in the main, lobar, or segmental pulmonary arteries. Bibasilar peribronchial/pulmonary parenchymal changes as above, right significantly greater than left. This could be related to aspiration and clinical correlation will be required. There is no pneumothorax or pleural effusion. There is no evidence of solid organ injury in the abdomen or pelvis. There is a 3.6 cm infrarenal abdominal aortic aneurysm.". I spoke with the radiologist who read his CTA who confirmed that there was no active hemorrhage in the shoulder or chest on imaging. Prior to admission the patient was given a 1L NSS bolus, before accepting the patient we asked the ED staff to order a STAT CT of the head to evaluate for possible brain hemorrhage. At the time of the exam the patient was resting comfortably in bed in no acute distress with his son and daughter sitting bedside. I spoke to the patient and his family regarding the new CT head findings with a possible small brain hemorrhage. They understand that we are waiting to hear back from [facility] to see if he needs to be transferred. If they recommended he stay I explained that we will admit him to the ICU for close monitoring. Please refer to Dr. Barney's attestation for any changes to the treatment plan Allergies Allergy/AdvReac Type Severity Reaction Status Date / Time SESAR Inhibitors Allergy Unknown Unknown Verified 01/13/22 14:34 Home Medications Medication Instructions Recorded Confirmed Type albuterol sulfate 90 mcg/actuation 1 - 2 puff inhalation Q4 PRN sob 08/25/18 01/13/22 History aerosol inhaler (ProAir HFA) aspirin 81 mg tablet,delayed 81 mg PO PM 08/25/18 01/13/22 History release cetirizine 10 mg tablet 10 mg PO PM 08/25/18 01/13/22 History omeprazole magnesium 20 mg 20 mg PO HS PRN Heartburn 08/25/18 01/13/22 History capsule,delayed release coenzyme Q10 100 mg capsule (Co 200 mg PO PM 04/24/19 01/13/22 History Q-10) atorvastatin 80 mg tablet 80 mg PO HS #90 tabs 04/10/21 01/08/22 Rx metoprolol succinate 25 mg 12.5 mg PO DAILY 90 days #45 tabs 04/14/21 01/13/22 Rx tablet,extended release 24 hr (Toprol XL) gabapentin 100 mg capsule 200 mg PO PM #180 caps 10/12/21 01/13/22 Rx umeclidinium 62.5 mcg-vilanterol See Rx Instructions .Route 11/23/21 01/13/22 Rx 25 mcg/actuation sienna for .COMPLEX #180 ea inhalation (Anoro Ellipta) finasteride 5 mg tablet 5 mg PO HS #90 tabs 12/21/21 01/13/22 Rx Past Med/Surg History Medical History Anxiety Arthritis BPH (benign prostatic hyperplasia) CAD (coronary artery disease) COPD (chronic obstructive pulmonary disease) Depression GERD (gastroesophageal reflux disease) Hx of fracture Hyperlipidemia Hypertension Ischemic cardiomyopathy Myocardial Infarction Urinary incontinence Surgical History Fusion of spine H/O surgical amputation of finger History of cardiac cath History of cataract surgery History of colonoscopy History of heart artery stent History of prostatectomy History of repair of rotator cuff History of tooth extraction S/P inguinal hernia repair S/P right knee arthroscopy Family History Brother Family hx of colon cancer Family history of diabetes mellitus Colorectal cancer Father Myocardial infarction Uncle Myocardial infarction Other Lung cancer Denies family history of Ovarian cancer Prostate cancer Breast cancer Social History (Updated 01/13/22 @ 14:36 by Hortencia Baca LPN) Smoking Status: Current some day smoker Tobacco Type: Cigarettes Age Started Using Tobacco: 10; packs per day: 0; Cigarettes Per Day: 2; Second Hand Exposure: No; Do You Dip or Chew Tobacco: No; Hx Alcohol Use: No Hx Substance Use: No Preferred Language: Thai Communication Ability: Effective Visual Impairment: No Limitations Hearing Ability: Hard of Hearing Plug Sorter Required: No Beliefs That Will Affect Care: None marital status: Current Living Situation: Spouse current occupational status: retired How many Children do You have: 2 Feels Safe at Home: Yes Childhood Exposure to Second-Hand Smoke: Yes caffeine: Yes Dental Care, Regularly: No Physical Activity Frequency: Does not Exercise Seatbelt Use: always Sunscreen Use: No Assistive Devices: Cane, Denture - Upper, Denture - Lower and Glasses Review of Systems Review of Systems: Denies current fever, chills, headache, changes in vision, hearing, taste, and smell, chest pain, SOB, cough, abdominal pain, nausea, vomiting, diarrhea, hematemesis, melena, dysuria, hematuria, and recent falls. All systems have been reviewed and are otherwise negative. Physical Exam Physical Exam: Physical Exam: General: In no acute distress, stated age, chronically ill appearing HEENT: Normocephalic, atraumatic, no scleral icterus, pupils around round, symmetrical, and reactive to light, moist mucus membranes, trachea midline, no thyromegaly Chest/Pulm: No respiratory distress, symmetrical chest expansion, clear breath sounds throughout Cardiac: RRR, no murmurs noted Abdomen: Negative for ascites and bruising, normoactive bowel sounds, soft, non-tender to palpation throughout Musculoskeletal: Patient with right upper extremity currently in sling and with good motor function, pulse, and sensation, no tenderness to palpation over the entire spine, no other trauma noted Extremities: Radial, dorsalis pedis, and posterior tibial pulses are intact and symmetrical, no edema noted in the BL LE's Skin: Warm, dry, no rashes , lesions, or scars noted Neuro: Alert and oriented to person, place, month, year, and president, no focal defects, CN II-XII tested and intact, finger to nose test negative, no tremors noted Psych: No acute distress, calm and cooperative during the exam Results & Data Results & Data ([facility]) Vital Signs (Past 12 Hours) Vital Signs Temp Pulse Resp BP BP Pulse Ox O2 Del Method 01/08/22 14:30 79 12 01/08/22 14:00 73 15 95 01/08/22 14:00 151/83 H 01/08/22 13:30 81 18 92 01/08/22 13:30 119/71 01/08/22 13:00 76 16 01/08/22 12:45 78 17 94 01/08/22 12:27 95 Room Air 01/08/22 12:21 20 143/67 H 95 Room Air 01/08/22 12:21 70 19 95 Room Air 01/08/22 11:57 36.5 C 70 20 143/67 H 95 Room Air Laboratory Results Abnormal lab results 01/08/22 01/08/22 01/08/22 Range/Units 12:35 12:35 12:35 WBC 12.02 H (4.8-10.8) K/ul RBC 4.03 L (4.63-6.08) M/uL Hgb 12.8 L (14.0-18.0) g/dl Hct 38.1 L (40.1-51.0) % RDW Std Deviation 46.7 H (36.4-46.3) fL Neut # (Auto) 9.12 H (1.4-6.5) K/uL [place] # (Auto) 1.40 H (0.24-0.82) K/uL Immature Gran # (Auto) 0.04 H (0.00-0.02) K/uL Sodium 134 L (136-145) mmol/L BUN 37 H (6-23) mg/dl Creatinine 1.70 H (0.6-1.4) mg/dl BUN/Creatinine Ratio 21.8 H (10-20) AST 92 H (13-39) U/L Total Creatine Kinase 4326 H (30-223) U/L Troponin I High Sens 31.9 H (0-20) pg/ml Urine Blood (Negative) 01/08/22 01/08/22 Range/Units 13:30 15:09 WBC (4.8-10.8) K/ul RBC (4.63-6.08) M/uL Hgb (14.0-18.0) g/dl Hct (40.1-51.0) % RDW Std Deviation (36.4-46.3) fL Neut # (Auto) (1.4-6.5) K/uL [place] # (Auto) (0.24-0.82) K/uL Immature Gran # (Auto) (0.00-0.02) K/uL Sodium (136-145) mmol/L BUN (6-23) mg/dl Creatinine (0.6-1.4) mg/dl BUN/Creatinine Ratio (10-20) AST (13-39) U/L Total Creatine Kinase (30-223) U/L Troponin I High Sens 32.2 H (0-20) pg/ml Urine Blood 1+ H (Negative) Diagnostic Findings Chest X-Ray 01/08/22 12:21 XR chest 1V portable HISTORY: Sepsis COMPARISON: Chest 01/06/2022. FINDINGS: No pneumothorax. No pleural effusions. A few bibasilar linear densities which favor subsegmental atelectasis or scarring. Otherwise, lungs are clear. No evidence for pulmonary edema. Mildly tortuous thoracic aorta. The heart remains top normal in size. IMPRESSION: No acute process. ACT 112: Negative or not required by law. Electronically signed by: Shorty Nicole M.D. 01/08/2022 2:09 PM Abdomen/Pelvis CT 01/08/22 14:00 CT ANGIOGRAM OF THE CHEST; CT SCAN OF THE ABDOMEN AND PELVIS WITH IV CONTRAST CLINICAL HISTORY: Productive cough. Dyspnea. Fall. Hypotension. Recent shoulder dislocation. COMPARISON STUDY: Chest x-ray dated 01/08/2022. CT scans of the chest, abdomen, and pelvis dated 03/29/2021. TECHNIQUE: Following the IV administration of 120 of Optiray 320, CT angiogram of the chest is performed from the upper abdomen to the thoracic inlet utilizing the pulmonary embolus protocol. Images are reviewed in the axial, sagittal, coronal planes. 3-D MIPS images are created and assessed. Subsequently, CT scan of the abdomen and pelvis was performed from the lung bases to the proximal femora. Images are reviewed in the axial, sagittal, and coronal planes. IV contrast was administered without complication. A dose lowering technique was utilized adhering to the principles of ALARA. The examination is degraded by motion artifact, as well as by streak artifact from the right arm which could not be elevated above the chest or abdomen. CT DOSE: 1359.95 mGycm FINDINGS: CHEST: Thyroid: Imaged portions of the thyroid gland are normal in size and attenuation. Thoracic aorta: There is atherosclerotic calcification of the thoracic aorta, which is normal in caliber and demonstrates bovine variant arch anatomy. No dissection is seen. Pulmonary vasculature: The pulmonary trunk is normal in caliber. There are no filling defects identified in the main, lobar, or segmental pulmonary arteries to indicate pulmonary embolus. Heart: The heart is enlarged and without pericardial effusion. Lungs and pleural spaces: There is moderate emphysema. Minimal dependent opacities are seen in the right lung, greatest the right lung base. No pleural effusion or pneumothorax is identified. Subpleural reticulation is seen throughout both lungs with numerous foci of parenchymal scarring. Layering secretions are noted in the trachea. There is peribronchial thickening in the lower lobes, right greater than left with intraluminal debris/mucus plugging. Mediastinum: There is no mediastinal lymphadenopathy. Arabella: Clear. Axillae: There is no axillary lymphadenopathy. Bony thorax: The skeletal structures are osteopenic. Mild anterior wedging of T12 is similar to previous. The bony thorax appears intact. No lytic or blastic lesions are identified. Soft tissues: There is contusion/hemorrhage identified in the right shoulder/axillary soft tissues. This extends inferiorly along the right chest wall. There is intramuscular hemorrhage within the right pectoralis and trapezius muscles. ABDOMEN AND PELVIS: Liver: The contrast-enhanced liver is normal in size, contour, and attenuation. There is no intrahepatic biliary ductal dilatation. The hepatic veins and portal veins are patent. Gallbladder: Unremarkable. Spleen: Normal in size and attenuation. Pancreas: Unremarkable. Adrenal glands: Unremarkable. Kidneys: The contrast enhanced kidneys demonstrate mild cortical atrophy and are without hydronephrosis. The kidneys enhance symmetrically. Scattered subcentimeter cortical hypodensities likely represent cysts but are too small for definitive catheterization. Punctate nonobstructing calculus is seen on the left. Abdominal vasculature: There is advanced atherosclerotic calcification of the abdominal aorta and iliac arteries. A small infrarenal abdominal aneurysm measures up to 3.6 cm. Stomach and bowel: There is a small hiatal hernia. There is sigmoid diverticulosis without CT evidence of acute diverticulitis. No bowel obstruction is seen. Mild/moderate fecal retention is present throughout the colon. Duodenal diverticula are noted. The appendix is well-visualized and normal. Peritoneum: There is no intraperitoneal free air or abdominal ascites. Lymphadenopathy: None. Pelvic viscera: The prostate gland is enlarged and heterogeneous noting median lobe hypertrophy. The bladder wall is mildly thickened and trabeculated indicating chronic outlet obstruction. There is a small fat-containing right inguinal hernia, as well as evidence of previous left inguinal herniorrhaphy. Skeletal structures: The skeletal structures are osteopenic. The lumbosacral spine, bony pelvis, and proximal femora appear intact. There is moderate lumbosacral spondylosis. Bilateral pars defects are noted at L5. No lytic or blastic lesions are seen. IMPRESSION: 1. There is contusion/hemorrhage seen around the right shoulder/axilla, likely related to recent shoulder dislocation. Additionally, there is intramuscular hemorrhage within the right pectoralis and trapezius muscles. 2. Cardiomegaly and emphysema. 3. There is no evidence of pulmonary embolus in the main, lobar, or segmental pulmonary arteries. 4. Bibasilar peribronchial/pulmonary parenchymal changes as above, right significantly greater than left. This could be related to aspiration and clinical correlation will be required. 5. There is no pneumothorax or pleural effusion. 6. There is no evidence of solid organ injury in the abdomen or pelvis. 7. There is a 3.6 cm infrarenal abdominal aortic aneurysm. 8. Additional findings as above. ACT 112: Negative or not required by law. Electronically signed by: Britton Martins M.D. 01/08/2022 2:53 PM Chest CTA 01/08/22 14:00 CT ANGIOGRAM OF THE CHEST; CT SCAN OF THE ABDOMEN AND PELVIS WITH IV CONTRAST CLINICAL HISTORY: Productive cough. Dyspnea. Fall. Hypotension. Recent shoulder dislocation. COMPARISON STUDY: Chest x-ray dated 01/08/2022. CT scans of the chest, abdomen, and pelvis dated 03/29/2021. TECHNIQUE: Following the IV administration of 120 of Optiray 320, CT angiogram of the chest is performed from the upper abdomen to the thoracic inlet utilizing the pulmonary embolus protocol. Images are reviewed in the axial, sagittal, coronal planes. 3-D MIPS images are created and assessed. Subsequently, CT scan of the abdomen and pelvis was performed from the lung bases to the proximal femora. Images are reviewed in the axial, sagittal, and coronal planes. IV contrast was administered without complication. A dose lowering technique was utilized adhering to the principles of ALARA. The examination is degraded by motion artifact, as well as by streak artifact from the right arm which could not be elevated above the chest or abdomen. CT DOSE: 1359.95 mGycm FINDINGS: CHEST: Thyroid: Imaged portions of the thyroid gland are normal in size and attenuation. Thoracic aorta: There is atherosclerotic calcification of the thoracic aorta, which is normal in caliber and demonstrates bovine variant arch anatomy. No dissection is seen. Pulmonary vasculature: The pulmonary trunk is normal in caliber. There are no filling defects identified in the main, lobar, or segmental pulmonary arteries to indicate pulmonary embolus. Heart: The heart is enlarged and without pericardial effusion. Lungs and pleural spaces: There is moderate emphysema. Minimal dependent opacities are seen in the right lung, greatest the right lung base. No pleural effusion or pneumothorax is identified. Subpleural reticulation is seen throughout both lungs with numerous foci of parenchymal scarring. Layering secretions are noted in the trachea. There is peribronchial thickening in the lower lobes, right greater than left with intraluminal debris/mucus plugging. Mediastinum: There is no mediastinal lymphadenopathy. Arabella: Clear. Axillae: There is no axillary lymphadenopathy. Bony thorax: The skeletal structures are osteopenic. Mild anterior wedging of T12 is similar to previous. The bony thorax appears intact. No lytic or blastic lesions are identified. Soft tissues: There is contusion/hemorrhage identified in the right shoulder/axillary soft tissues. This extends inferiorly along the right chest wall. There is intramuscular hemorrhage within the right pectoralis and trapezius muscles. ABDOMEN AND PELVIS: Liver: The contrast-enhanced liver is normal in size, contour, and attenuation. There is no intrahepatic biliary ductal dilatation. The hepatic veins and portal veins are patent. Gallbladder: Unremarkable. Spleen: Normal in size and attenuation. Pancreas: Unremarkable. Adrenal glands: Unremarkable. Kidneys: The contrast enhanced kidneys demonstrate mild cortical atrophy and are without hydronephrosis. The kidneys enhance symmetrically. Scattered subcentimeter cortical hypodensities likely represent cysts but are too small for definitive catheterization. Punctate nonobstructing calculus is seen on the left. Abdominal vasculature: There is advanced atherosclerotic calcification of the abdominal aorta and iliac arteries. A small infrarenal abdominal aneurysm measu res up to 3.6 cm. Stomach and bowel: There is a small hiatal hernia. There is sigmoid diverticulosis without CT evidence of acute diverticulitis. No bowel obstruction is seen. Mild/moderate fecal retention is present throughout the colon. Duodenal diverticula are noted. The appendix is well-visualized and normal. Peritoneum: There is no intraperitoneal free air or abdominal ascites. Lymphadenopathy: None. Pelvic viscera: The prostate gland is enlarged and heterogeneous noting median lobe hypertrophy. The bladder wall is mildly thickened and trabeculated indicating chronic outlet obstruction. There is a small fat-containing right inguinal hernia, as well as evidence of previous left inguinal herniorrhaphy. Skeletal structures: The skeletal structures are osteopenic. The lumbosacral spine, bony pelvis, and proximal femora appear intact. There is moderate lumbosacral spondylosis. Bilateral pars defects are noted at L5. No lytic or blastic lesions are seen. IMPRESSION: 1. There is contusion/hemorrhage seen around the right shoulder/axilla, likely related to recent shoulder dislocation. Additionally, there is intramuscular hemorrhage within the right pectoralis and trapezius muscles. 2. Cardiomegaly and emphysema. 3. There is no evidence of pulmonary embolus in the main, lobar, or segmental pulmonary arteries. 4. Bibasilar peribronchial/pulmonary parenchymal changes as above, right significantly greater than left. This could be related to aspiration and clinical correlation will be required. 5. There is no pneumothorax or pleural effusion. 6. There is no evidence of solid organ injury in the abdomen or pelvis. 7. There is a 3.6 cm infrarenal abdominal aortic aneurysm. 8. Additional findings as above. ACT 112: Negative or not required by law. Electronically signed by: Britton Martins M.D. 01/08/2022 2:53 PM ECG Additional Comments: Poor data quality, interpretation may be adversely affected Sinus rhythm T wave abnormality, consider lateral ischemia Abnormal ECG When compared with ECG of 06-JAN-2022 11:57, T wave inversion less evident in Lateral leads Premature ventricular complexes are no longer Present Confirmed by Josh Gooden ([id number]) on 01/08/2022 1:54:32 PM Code Status & VTE Plan Code Status FUll code VTE Prophylaxis Plan VTE Prophylaxis will be ordered: Yes Critical Care Time Critical Care Time: Yes Total Critical Care Time: 35 Supervising Physician Co-Signing Physician Notes During face to face encounter, I obtained a history and physical examination. I reviewed above note and agree with it. I discussed plan of care with Brandt Linda and patient. Patient admitted for a possible intracranial hemorrhage. Patient will be admitted to the ICU for close monitoring. will repat imaging in AM PG Care Time/CCT Total # of Minutes Spent Total Time Spent with Patient: Total time spent is greater than 50% in coordination of care (as documented) at patient's floor/unit and/or counseling patient: Critical Care Time: Yes Total Critical Care Time: 35 [place] [address] Initial Inpt Care Lvl 3 (25 - SIGNIFICANT, SEPARATELY IDENTIFIABLE ) Patient Type Established Medical Decision Making High Complexity Diagnoses Brainstem hemorrhage I61.3 Rhabdomyolysis T79.6XXA Encounter type: initial encounter Rhabdomyolysis type: traumatic Pre-syncope R55 Hypotension I95.9 Elevated troponin R77.8 Anterior shoulder dislocation S43.014A Encounter type: initial encounter Laterality: right BPH (benign prostatic hyperplasia) N40.0 Hypertension I10 Hyperlipidemia E78.5 GERD without esophagitis K21.9 Chronic obstructive pulmonary disease J44.9 CAD (coronary artery disease) I25.10 Additional Codes Critical Care Time - Critical Care Time: Yes ([id number]) (1) Rhabdomyolysis Encounter type: initial encounter Rhabdomyolysis type: traumatic Qualified Code(s): T79.6XXA - Traumatic ischemia of muscle, initial encounter (2) Anterior shoulder dislocation Encounter type: initial encounter Laterality: right Qualified Code(s): S43.014A - Anterior dislocation of right humerus, initial encounter
--- NOTE | 2022-01-08 16:33 | CT Scan Report ---
CT OF THE HEAD WITHOUT CONTRAST CLINICAL HISTORY: recent fall, evaluate for delayed head bleed. COMPARISON STUDY: Head CT January 06, 2022. CT DOSE: 537.48 mGy.cm TECHNIQUE: Helical axial images of the head were obtained without IV contrast. Automated exposure con trol was utilized for the study. A dose lowering technique was utilized adhering to the principles o f ALARA. FINDINGS: A thin linear left parafalcine density on axial image 23 of 28 is new since head CT of [facility] 2021. This could represent vessels given intravascular contrast from recent contrast-enhance d CT Trace subdural hemorrhage cannot be excluded although this abnormality is not particularly dense. Bas al cisterns are patent. Prominence of the extra-axial spaces is otherwise due to atrophy. White matte r hypodensity suggests small vessel disease. These are unchanged. No acute calvarial fracture is pres ent. Visualized portions of the sinuses and mastoid are cells are clear. IMPRESSION: Thin linear left parafalcine density. This was not evident on head CT of January 06 and could reflect vessels given intravascular contrast. However, trace subdural hemorrhage cannot be completely excluded. Short-term follow-up head CT in 24 hours is recommended. Otherwise, unchanged appearance of the brain. ACT 112: Negative or not required by law. Electronically signed by: Hubert Goodwin M.D. 01/08/2022 4:31 PM
--- NOTE | 2022-01-08 17:37 | Emergency Department Note ---
ED Visit Note Patient was signed out to me by Dr. Nichole at change of shift pending CT imaging of the head to evaluate for any possible delayed bleeding after the patient's fall several days ago. CT imaging of the head was obtained and shows a left parafalcine density that is very thin. Question that this is just vessels given that the patient received IV contrast earlier, also possibility of a thin subdural hemorrhage. On my assessment the patient is alert, he is in no acute distress, he denies any sensation of headache or lightheadedness. His fall was several days ago. I discussed the case with on-call neurosurgery at [facility], Dr. Tucekr, who stated at this time he would not recommend transfer, he recommends repeat CT imaging of the head tomorrow, states that at this time they would not do anything from a neurosurgical standpoint for this finding currently anyway and therefore the patient does not require transfer. I did update the patient and the hospitalist service. Patient will be admitted here [facility] for further management and repeat CT imaging of the head tomorrow. Epi Terry DO . : Hypotension Qualifiers: Hypotension type: unspecified hypotension type Qualified Code(s): I95.9 - Hypotension, unspecified Fall Qualifiers: Encounter type: initial encounter Qualified Code(s): W19.XXXA - Unspecified fall, initial encounter Rhabdomyolysis Qualifiers: Rhabdomyolysis type: traumatic Encounter type: initial encounter Qualified Code(s): T79.6XXA - Traumatic ischemia of muscle, initial encounter
[2022-01-08] MEDS ORDERED: LACTATED RINGER'S 1,000 ML IV SCH (18:00)
[2022-01-08] MEDS: LIDOCAINE 5% 1 PATCH TD SCH (18:06)
[2022-01-08 18:28] LABS: Hematocrit (blood only) 37.8 % (40.1-51.0); Hemoglobin 12.6 g/dl (14.0-18.0); Mean Corpuscular Hemoglobin 31.4 pg (25.0-34.0); Mean Corpuscular Hgb Conc 33.3 g/dL (32.0-36.0); Mean Corpuscular Volume 94.3 fL (80.0-100.0); Platelet Count 153 K/uL (130-400); RDW Coefficient of Variation 13.7 % (11.5-14.5); RDW Standard Deviation 47.3 fL (36.4-46.3); Red Blood Count 4.01 M/uL (4.63-6.08)
[2022-01-08] MEDS ORDERED: Flu Vaccine-High Dose (Fluzone-HD) PF 65+ 0.7mL SYR IM ONE (20:45)
[2022-01-08] MEDS ORDERED: PNEUMOCOCCAL Polysaccharide Vaccine 25mcg/0.5mL vial/Syr IM ONE (20:45)
[2022-01-08] MEDS ORDERED: ALBUTEROL HFA 8 GM INHALER INH PRN (21:13)
[2022-01-08] MEDS ORDERED: ICU Protocol for HYPERglycemia PRN (21:13)
[2022-01-08] MEDS: ACETAMINOPHEN 325 MG TAB PO PRN (21:20)
[2022-01-08] MEDS ORDERED: PANTOprazole 40 MG TAB PO PRN (21:26)
[2022-01-08] MEDS: CETIRIZINE HCL 10 MG TABLET PO SCH (21:37)
[2022-01-08] MEDS: GABAPENTIN 100 MG CAP PO SCH (21:38)
[2022-01-08 21:47] LABS: Hematocrit (blood only) 35.5 % (40.1-51.0); Hemoglobin 12.1 g/dl (14.0-18.0)
[2022-01-08 21:59] LABS: Partial Thromboplastin Ratio 1.1; Partial Thromboplastin Time 30.1 Seconds (21.0-31.0); Prothrombin Time 10.7 Seconds (9.0-12.0)
--- NOTE | 2022-01-08 23:45 | Critical Care Consultation ---
Date of Consultation January 08, 2022 Assessment & Plan (1) Subdural hematoma: Impression: 81-year-old male presents to the ICU following CT head concerning for trace acute subdural hematoma which likely resulted from a fall 2 days ago. No need for neurosurgical intervention at this time and patient admitted to ICU for close monitoring and frequent neurological exams. Neuro - Acute SDHpatient noted to have thin linear left parafalcine density that was not evident on CT from January 06 and cannot rule out trace subdural hemorrhage at this time. Neurosurgery at [facility] was notified and did not feel that the patient would need intervention at this time and recommended admission to the ICU and monitoring here at [facility]. Patient now admitted to the ICU for hemodynamic monitoring and frequent neurological exams. Holding anticoagulants and ASA. Blood pressure is within acceptable range and no need for vasoactive drip at this time. Repeat CT head at 7 AM. Will obtain stat CT head if any neurological change. Cardiac - Orthostatic hypotensionunsure of etiology at this time but patient does report several episodes of syncope associated with standing recently. He is currently normotensive and NSR. Consider repeat echo? HTNcontinue MTP. Hold HCTZ CADhistory of previous IN and ischemic cardiomyopathy, s/p PCI. -Hold ASA given SDH for now -Last echo 04/14 with normal EF, severe hypokinesis of the inferolateral wall, mild left atrial dilation, trace aortic regurg Abdominal aortic aneurysmnoted on CT abdomen and pelvis to be a 3.6 cm infrarenal abdominal aortic aneurysm. Will likely need follow-up. Avoid hypertension for now Respiratory - COPDpatient prior smoker with 1 PPD. No active exacerbation at this time having lungs currently clear to auscultation and maintain oxygen saturation on room air. Continue with home regimen inhalers. Continuous monitoring pulse ox GI - GERDPPI RENAL/LYTES - AKIcreatinine 1.7 with a baseline of 1.3. Unsure if this is related to dehydration in the setting of nausea with decreased p.o. intake or possibly ATN as patient was noted to have low blood pressure outpatient. -Continue with gentle IV fluid resuscitation -Maintain maps greater than 65 -Monitor creatinine with routine BMP and replete electrolytes as indicated -Avoid nephrotoxins renally adjust medications Rhabdomyolysisinitial CPK 4326, now improving. Continue with IV fluid resuscitation and trend - BPHcontinue finasteride ENDO - No history of diabetes or thyroid disease ICU hyperglycemic protocol HEME - H&H stable. Patient was noted to have contusions around the right shoulder/axilla and intramuscular hemorrhage within the pectoralis and trapezius muscles noted on CT chest. No indication for transfusion at this time. Monitor ID - No indication for infectious process at this time. Trend fever curve LINES/IV ACCESS - Peripheral IVs DVT PROPHYLAXIS - SCDs, hold anticoagulation in the presence of SDH Thank you for allowing us to participate in the care of this patient. Please refer to my attending physician's documentation for any further recommendations. (2) Fall: (3) Elevated troponin: (4) Rhabdomyolysis: (5) Anterior shoulder dislocation: (6) BPH (benign prostatic hyperplasia): (7) Orthostatic hypotension: (8) Syncope: (9) Hypertension: (10) GERD without esophagitis: (11) CAD (coronary artery disease): (12) Chronic obstructive pulmonary disease: (13) AAA (abdominal aortic aneurysm): History of Present Illness Attending Physician: Kumar Barney History of Present Illness Patient is a 81-year-old male past medical history HTN, CAD, history of IN, orthostatic hypotension, HLD, COPD, GERD, BPH who initially presented to the emergency department on 01/06 following a fall in which she was found to have a dislocated shoulder which was successfully reduced and possible Hill-Sachs impaction fracture. Patient presented to primary care for follow-up earlier today where he reported complaints of dizziness, nausea, and syncope. Patient was sent to the emergency department for further evaluation and underwent CT head which revealed a thin linear left parafalcine density that was not evident on head CT from 01/06 and could possibly reflect trace subdural hemorrhage. At this point, neurosurgery at [facility] was contacted but they did not feel that the patient required transfer to tertiary center for any intervention at this time. Patient is now being admitted to ICU for close monitoring and will undergo repeat CT head in the morning for reevaluation. On arrival to the ICU the patient is alert and oriented and hemodynamically stable. He is normotensive and maintaining oxygen saturation on room air without distress. Patient does report a moderate amount of pain associated with movement to the right shoulder and right arm is currently in a sling. He did undergo CTA chest prior to arrival which showed contusion of the right sh oulder/axilla and intramuscular hemorrhage within the right pectoralis and trapezius muscles. Patient does report frequent syncopal events that have been for some time now in which he states that he has to sit at the edge of the bed before standing up where he becomes dizzy and he may faint. He does report some nausea without vomiting as well and dizziness which started since his fall 2 days ago. Patient currently denies any changes in vision, headache, hearing loss, numbness or weakness, changes in gait, confusion, or loss of coordination. He denies any recent illness, fevers, chest pain or palpitations, shortness of breath, cough or sore throat, abdominal pain, vomiting or diarrhea, or swelling in hands and feet. At this time patient's neurological exam is stable and hemodynamics are within acceptable limits. We will continue with monitoring in the ICU for close observation and should the patient have neurological change, will send for stat CT. He has a repeat CT head ordered for 7 AM. Allergies Allergy/AdvReac Type Severity Reaction Status Date / Time SESAR Inhibitors Allergy Unknown Unknown Verified 01/08/22 11:18 Home Medications Medication Instructions Recorded Confirmed Type albuterol sulfate 90 mcg/actuation 1 - 2 puff inhalation Q4 PRN sob 08/25/18 01/08/22 History aerosol inhaler (ProAir HFA) aspirin 81 mg tablet,delayed 81 mg PO PM 08/25/18 01/08/22 History release cetirizine 10 mg tablet 10 mg PO PM 08/25/18 01/08/22 History omeprazole magnesium 20 mg 20 mg PO HS PRN Heartburn 08/25/18 01/08/22 History capsule,delayed release coenzyme Q10 100 mg capsule (Co 200 mg PO PM 04/24/19 01/08/22 History Q-10) hydrochlorothiazide 12.5 mg tablet 12.5 mg PO .weekly PRN peripheral 03/31/21 01/08/22 Rx edema #10 tabs atorvastatin 80 mg tablet 80 mg PO HS #90 tabs 04/10/21 01/08/22 Rx metoprolol succinate 25 mg 12.5 mg PO DAILY 90 days #45 tabs 04/14/21 01/08/22 Rx tablet,extended release 24 hr (Toprol XL) gabapentin 100 mg capsule 200 mg PO PM #180 caps 10/12/21 01/08/22 Rx umeclidinium 62.5 mcg-vilanterol See Rx Instructions .Route 11/23/21 01/08/22 Rx 25 mcg/actuation powdr for .COMPLEX #180 ea inhalation (Anoro Ellipta) finasteride 5 mg tablet 5 mg PO HS #90 tabs 12/21/21 01/08/22 Rx Patient History Medical History Anxiety no meds Arthritis BPH (benign prostatic hyperplasia) CAD (coronary artery disease) follows with Dr. White COPD (chronic obstructive pulmonary disease) well controlled rare res inh use Depression no meds GERD (gastroesophageal reflux disease) Hx of fracture jaw -- no surgery -- able to open without difficulty Hyperlipidemia Hypertension Ischemic cardiomyopathy Myocardial Infarction [address]. follows [address] White. 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 History of cataract surgery bilateral History of colonoscopy History of heart artery stent X1 (02.16.2004) History of prostatectomy History of repair of rotator cuff left History of tooth extraction S/P inguinal hernia repair bilateral S/P right knee arthroscopy Family History Brother Family hx of colon cancer Family history of diabetes mellitus Colorectal cancer Father Myocardial infarction Uncle Myocardial infarction Other Lung cancer Denies family history of Ovarian cancer Prostate cancer Breast cancer Social History Smoking Status: Current some day smoker Tobacco Type: Cigarettes Age Started Using Tobacco: 10; packs per day: 0; Cigarettes Per Day: 2; Second Hand Exposure: No; Do You Dip or Chew Tobacco: No; Hx Alcohol Use: No Hx Substance Use: No Preferred Language: Djiboutian Communication Ability: Effective Visual Impairment: No Limitations Hearing Ability: Hard of Hearing Home School Teacher Required: No Beliefs That Will Affect Care: None marital status: Current Living Situation: Spouse current occupational status: retired How many Children do You have: 2 Feels Safe at Home: Yes Safety Concerns: Feels Safe At This Time Childhood Exposure to Second-Hand Smoke: Yes caffeine: Yes Dental Care, Regularly: No Physical Activity Frequency: Does not Exercise Seatbelt Use: always Sunscreen Use: No Assistive Devices: Cane, Denture - Upper, Denture - Lower and Glasses Review of Systems Review of Systems: All systems reviewed & are unremarkable except as noted in HPI & below Physical Exam Constitutional: WD/WN, vitals as above Eyes: PERRL, conjunctivae normal, anicteric sclerae ENMT: external ear and nose normal, oropharynx normal Neck: trachea midline, no thyromegaly Respiratory: normal respiratory effort, lungs clear to auscultation Cardiovascular: RRR, no murmur, no edema Heart Sounds: normal S1 and normal S2 Extremities: normal capillary refill; no edema Gastrointestinal (Abdomen): normal bowel sounds, soft, nontender, no hepatosplenomegaly Musculoskeletal: no cyanosis or clubbing, extremities motor strength 5/5 Skin: no rashes, warm and dry Neurologic: PERRL, EOMI, accommodation nl, no face palsy, no dysarthria moves all extremities and awake Psychiatric: A+Ox3, euthymic affect Results & Data Results & Data ([facility]) Vital Signs (Past 12 Hours) Vital Signs Temp Pulse Resp BP BP Pulse Ox O2 Del Method 01/08/22 19:57 96 H 18 93/60 L 90 01/08/22 16:30 78 20 95 01/08/22 16:30 113/87 01/08/22 16:22 109/86 01/08/22 16:22 80 16 01/08/22 16:00 78 17 95 01/08/22 16:00 146/89 H 01/08/22 15:37 137/119 H 01/08/22 15:37 81 18 01/08/22 15:30 73 21 01/08/22 15:00 82 20 01/08/22 14:30 79 12 01/08/22 14:00 73 15 95 01/08/22 14:00 151/83 H 01/08/22 13:30 81 18 92 01/08/22 13:30 119/71 01/08/22 13:00 76 16 01/08/22 12:45 78 17 94 01/08/22 12:27 95 Room Air 01/08/22 12:21 20 143/67 H 95 Room Air 01/08/22 12:21 70 19 95 Room Air 01/08/22 11:57 36.5 C 70 20 143/67 H 95 Room Air Coding Level of Care Code 29960 Inpt Consult Level 3 Diagnoses Subdural hematoma S06.5XAA Fall W19.XXXA Encounter type: initial encounter Elevated troponin R77.8 Rhabdomyolysis T79.6XXA Encounter type: initial encounter Rhabdomyolysis type: traumatic Anterior shoulder dislocation S43.014A Encounter type: initial encounter Laterality: right BPH (benign prostatic hyperplasia) N40.0 Orthostatic hypotension I95.1 Syncope R55 Syncope type: unspecified Hypertension I10 GERD without esophagitis K21.9 CAD (coronary artery disease) I25.10 Chronic obstructive pulmonary disease J44.9 AAA (abdominal aortic aneurysm) I71.40 (1) Rhabdomyolysis Encounter type: initial encounter Rhabdomyolysis type: traumatic Qualified Code(s): T79.6XXA - Traumatic ischemia of muscle, initial encounter (2) Syncope Syncope type: unspecified Qualified Code(s): R55 - Syncope and collapse (3) Anterior shoulder dislocation Encounter type: initial encounter Laterality: right Qualified Code(s): S43.014A - Anterior dislocation of right humerus, initial encounter (4) Fall Encounter type: initial encounter Qualified Code(s): W19.XXXA - Unspecified fall, initial encounter
[2022-01-09] MEDS: SODIUM CHLORIDE 0.9% 1000ML 1,000 ML IV SCH ×3 (00:45→21:58)
[2022-01-09 05:52] LABS: Basophils # (auto) 0.05 K/uL (0-0.2); Basophils % (auto) 0.5 %; Eosinophils # (auto) 0.14 K/uL (0-0.50); Eosinophils % (auto) 1.3 %; Hematocrit (blood only) 36.9 % (40.1-51.0); Hemoglobin 12.1 g/dl (14.0-18.0); Immature Granulocytes # (auto) 0.03 K/uL (0.00-0.02); Immature Granulocytes % (auto) 0.3 %; Lymphocytes # (auto) 1.32 K/uL (1.2-3.4); Lymphocytes % (auto) 12.6 %; Mean Corpuscular Hemoglobin 31.1 pg (25.0-34.0); Mean Corpuscular Hgb Conc 32.8 g/dL (32.0-36.0); Mean Corpuscular Volume 94.9 fL (80.0-100.0); Mean Platelet Volume 10.1 fL (9.4-12.4); Monocytes # (auto) 1.25 K/uL (0.24-0.82); Monocytes % (auto) 11.9 %; Neutrophils % (auto) 73.4 %; Platelet Count 155 K/uL (130-400); RDW Coefficient of Variation 13.9 % (11.5-14.5); RDW Standard Deviation 47.5 fL (36.4-46.3); Red Blood Count 3.89 M/uL (4.63-6.08); White Blood Count 10.49 K/ul (4.8-10.8)
[2022-01-09 06:15] LABS: BUN Creatinine Ratio 19.9 (10-20); Calcium 8.5 mg/dl (8.5-10.1); Creatinine Clr Calc Pharmacy 44.6 ml/min; Est GFR (African American) 55.8 ml/min; Est GFR (Non-African American) 48.1 ml/min; Potassium 4.2 mmol/L (3.5-5.1)
[2022-01-09 06:24] LABS: Albumin Globulin Ratio 1.3 (0.9-2); Albumin Level 3.6 gm/dl (3.4-5.0); Bilirubin,Total 1.3 mg/dl (0.2-1.0); Globulin 2.7 gm/dl (2.5-4.0); Magnesium 2.2 mg/dl (1.7-2.4); Phosphorus 2.9 mg/dl (2.5-4.9); Total Protein 6.3 gm/dl (6.0-8.3)
--- NOTE | 2022-01-09 07:01 | CT Scan Report ---
CT OF THE HEAD WITHOUT CONTRAST CLINICAL HISTORY: Follow subdural hemorrhage COMPARISON STUDY: Head CT January 08, 2022 and January 06, 2022. CT DOSE: 614.27 mGy.cm TECHNIQUE: Helical axial images of the head were obtained without IV contrast. Automated exposure con trol was utilized for the study. A dose lowering technique was utilized adhering to the principles o f ALARA. FINDINGS: No acute intracranial hemorrhage, midline shift or mass effect is present. Atrophy is again noted with prominence of the extra-axial spaces. White matter hypodensity suggests small vessel dise ase. The left parafalcine density shown on prior head CT is not evident on this exam. The ventricular system is unremarkable. The basal cisterns are patent. No extra-axial collections are present. There are no findings to suggest acute dural sinus thrombosis or acute territorial infarct. No significant calvarial abnormalities are present. Visualized portions of the sinuses and mastoid air cells are cl ear. IMPRESSION: No acute intracranial findings. The thin left parafalcine density shown on prior head CT is not visualized and was likely artifactual. No acute hemorrhage. ACT 112: Negative or not required by law. Electronically signed by: Hubert Goodwin M.D. 01/09/2022 6:59 AM
--- NOTE | 2022-01-09 07:18 | Critical Care Progress Note ---
Date of Service January 09, 2022 Assessment & Plan (1) Subdural hematoma: (2) Fall: (3) Elevated troponin: (4) Rhabdomyolysis: (5) Anterior shoulder dislocation: (6) BPH (benign prostatic hyperplasia): (7) Orthostatic hypotension: (8) Syncope: (9) Hypertension: (10) GERD without esophagitis: (11) CAD (coronary artery disease): (12) Chronic obstructive pulmonary disease: (13) AAA (abdominal aortic aneurysm): Plan Impression: 81-year-old male presents to the ICU following CT head concerning for trace acute subdural hematoma which likely resulted from a fall 2 days ago. No need for neurosurgical intervention at this time and patient admitted to ICU for close monitoring and frequent neurological exams. Neuro - -- Abnormal head CT patient noted to have thin linear left parafalcine density that was not evident on CT from January 06 and cannot rule out trace subdural hemorrhage at this time Repeat CT head done 01/09/2022 does not show any abnormality. Parafalcine density appreciated on the previous CAT scan was most likely artifactual Cardiac - Orthostatic hypotensionunsure of etiology at this time but patient does report several episodes of syncope associated with standing recently. He is currently normotensive and NSR. Follow-up repeat echo HTN Continue with metoprolol CADhistory of previous AR and ischemic cardiomyopathy, s/p PCI. -Hold ASA -Last echo 04/14 with normal EF, severe hypokinesis of the inferolateral wall, mild left atrial dilation, trace aortic regurg Abdominal aortic aneurysmnoted on CT abdomen and pelvis to be a 3.6 cm infrarenal abdominal aortic aneurysm. Will likely need follow-up. Avoid hypertension for now Respiratory - COPD patient prior smoker with 1 PPD. No active exacerbation at this time having lungs currently clear to auscultation and maintain oxygen saturation on room air. Continue with home regimen inhalers. GI - GERDPPI RENAL/LYTES - AKIcreatinine 1.7 with a baseline of 1.3. -Continue with gentle IV fluid resuscitation -Maintain maps greater than 65 -Monitor BUNs/creatinine -Avoid nephrotoxins renally adjust medications Rhabdomyolysisinitial CPK 4326 Continue with IV fluids - BPHcontinue finasteride ENDO - No history of diabetes or thyroid disease ICU hyperglycemic protocol HEME - H&H stable. Patient was noted to have contusions around the right shoulder/axi lla and intramuscular hemorrhage within the pectoralis and trapezius muscles noted on CT chest. No indication for transfusion at this time. Monitor ID - No indication for infectious process at this time. Trend fever curve --Prophylaxis VTE: IPC GI: None Lines: Peripheral Diet: Cardiorenal Plan: In/out: +1460, there is no urine output measured See case trending down. Creatinine is improving Start the patient on diet Repeat CT does not show any signs of intracranial bleed. Blood pressure was 150 systolic at the time of examination. Okay to resume his beta-yi. Patient hemodynamically stable to be downgraded to telemetry floor. Case discussed with Dr. Barney Patient's daughter Aleksandra [phone] was called and voicemail was left Please note the above document was generated using voice recognition software. It may contain grammatical, syntax or spelling errors.Any formal questions or concerns about the content, text or information contained within the body of this dictation should be directly addressed to the provider for clarification. Admission and Anticipated Discharge Date Admission Date: January 08, 2022 Subjective Patient seen and examined at bedside. No acute distress, no adverse events overnight. Denies any headache, no nausea, no vomiting. Does complain of pain in the right arm which is also only on movement or palpation. Denies any chest pain, no shortness of breath No abdominal pain Review of Systems Review of Systems: All systems reviewed & are unremarkable except as noted in Subjective Physical Exam Physical Exam: Constitutional: No acute distress HEENT: EOMI, PERRLA Respiratory system: Good air entry bilaterally, no wheeze, no rhonchi, mild crackles bilateral lower lobes CVS: S1-S2 positive, no murmurs or gallops, distant heart sounds Abdomen: Soft, nontender, nondistended, positive bowel sounds x4 Extremities: +2 pulses bilaterally radialis/ dorsalis pedis, no cyanosis, +1 pitting edema bilateral lower extremity, right arm in sling Neuro: Awake alert oriented x3 Psych: Normal mood and affect G/U: No Flores Skin: no rashes, warm and dry Lymphatic: no cervical or axillary lymphadenopathy Results & Data Results & Data ([facility]) Vital Signs (Past 12 Hours) Vital Signs Temp Pulse Resp BP BP Pulse Ox O2 Del Method 01/09/22 06:13 150/79 H 01/09/22 05:00 149/74 H 01/09/22 06:00 65 13 150/95 H 93 01/09/22 05:30 77 16 93 01/09/22 05:00 68 13 01/09/22 05:00 36.9 C 01/09/22 04:30 68 15 92 01/09/22 04:00 71 13 91 01/09/22 03:30 76 14 93 01/09/22 03:00 66 13 01/09/22 02:30 67 13 91 01/09/22 02:00 70 13 01/09/22 02:00 138/69 01/09/22 01:30 68 13 91 01/09/22 01:00 75 14 01/09/22 01:00 143/74 H 01/09/22 00:30 80 28 H 89 L 01/09/22 00:01 157/84 H 01/09/22 00:01 77 14 90 01/09/22 00:00 77 14 01/09/22 00:00 36.7 C 01/08/22 23:30 83 17 91 01/08/22 23:00 79 17 91 01/08/22 23:00 154/82 H 01/08/22 22:31 92 H 16 01/08/22 22:00 84 15 01/08/22 21:30 90 26 H 92 01/08/22 21:22 146/80 H 01/08/22 21:22 87 18 91 01/08/22 21:00 88 21 90 01/08/22 20:59 92 H 18 95 01/08/22 22:00 37.3 C 01/08/22 21:25 Room Air 01/08/22 19:57 96 H 18 93/60 L 90 Laboratory Results 01/09/22 05:11 01/09/22 05:11 Diagnostic Findings 01/09/22 05:11 01/09/22 05:11 Coding Level of Care Code 41227 Subseq Hosp Care Lvl 3 Diagnoses Subdural hematoma S06.5XAA Fall W19.XXXA Encounter type: initial encounter Elevated troponin R77.8 Rhabdomyolysis T79.6XXA Encounter type: initial encounter Rhabdomyolysis type: traumatic Anterior shoulder dislocation S43.014A Encounter type: initial encounter Laterality: right BPH (benign prostatic hyperplasia) N40.0 Orthostatic hypotension I95.1 Syncope R55 Syncope type: unspecified Hypertension I10 GERD without esophagitis K21.9 CAD (coronary artery disease) I25.10 Chronic obstructive pulmonary disease J44.9 AAA (abdominal aortic aneurysm) I71.40 (1) Rhabdomyolysis Encounter type: initial encounter Rhabdomyolysis type: traumatic Qualified Code(s): T79.6XXA - Traumatic ischemia of muscle, initial encounter (2) Syncope Syncope type: unspecified Qualified Code(s): R55 - Syncope and collapse (3) Anterior shoulder dislocation Encounter type: initial encounter Laterality: right Qualified Code(s): S43.014A - Anterior dislocation of right humerus, initial encounter (4) Fall Encounter type: initial encounter Qualified Code(s): W19.XXXA - Unspecified fall, initial encounter
[2022-01-09] MEDS: METOPROLOL SUCC 25MG EXT REL TAB PO SCH (09:56)
[2022-01-09] MEDS: UMECLIDINIUM/VILANTEROL 62.5/25MCG 7 PUFFS/INHALER INH SCH (09:57)
[2022-01-09] MEDS: LIDOCAINE 5% 1 PATCH TD SCH (10:07)
--- NOTE | 2022-01-09 19:56 | XCELERA ---
[id number] \\[id number]\PDF_Reports\[id number].pdf
[2022-01-09] MEDS: GABAPENTIN 100 MG CAP PO SCH (21:56)
[2022-01-09] MEDS: CETIRIZINE HCL 10 MG TABLET PO SCH (21:56)
--- NOTE | 2022-01-09 22:16 | Hospitalist Progress Note ---
Date of Service January 09, 2022 Assessment & Plan (1) Brainstem hemorrhage: Plan: -CT brain without contrast is showing a possible left parafalcine subdural hemorrhage -Spoke with our Manager Strategy & Account financial services education consultant who recommended the ED speak with a tertiary care center Neurosurgery team prior to accepting the patient for admission -[facility] recommending patient stay here for now with follow-up CT head in the morning -Admit to the ICU -Hold anticoagulation including aspirin for now -q4h Neuro checks, CT head ordered for 0700 tomorrow morning -If any changes in symptoms or neuro exam would get STAT CT head to monitor hemorrhage On 01/09 this was confirmed to be an artifact. No signs of bleeding. Transferred out of ICU. (2) Rhabdomyolysis: Plan: -Patient is currently afebrile, hemodynamically stable, and stable on RA -CK elevated into the 4000's on labs today, likely due to his fall and being down for an extended period of time on 01/06 -He does have an increase in his Cr to 1.7, baseline appears to be around 1.3, he likely has a mild PASTORA at this time -Patient was given 1L NSS bolus in the ED, will continue IV hydration for now with Lactated Ringer's -Will trend CK q6h moving forward until it reaches a plateau -Avoid nephrotoxic agents until his renal function returns to baseline -Monitor am CMP, renal function, and electrolytes On 01/09 CK is improving. continue IVF. (3) Pre-syncope: Plan: -Patient noted feeling lightheaded, dizzy, and feeling as though he may pass out early this am when he woke up. -He did not take his antihypertensives today -Patient also has a history of orthostatic hypotension in the past with bradycardia, his metoprolol has been reduced in the past for this problems. Could also be a symptom of his possible subdural hemorrhage -No active ECG changes noted from today, his symptoms could be from dehydration, will also need to continue monitor for signs of bleeding with q6h CBC moving forward -Did confirm with the radiologist that they saw no active hemorrhage on CTA of the chest, abdomen, and pelvis -Will also obtain orthostatic vitals -Monitor on tele for now -Hold statin while CK is elevated, will also hold HCTZ with his PASTORA -Not orthostatic on 01/09, ortho vitals negative. perhaps combination of rhabdomyolysis and dehydration. Symptoms appear improved on 01/09 will check quality assurance monitor body: close to 7pm had atrial tachycardia, which was short lived.. will recheck tele in AM (4) Hypotension: Plan: -Reportedly hypotensive with systolic BP in the 60's-70's at his PCP's office this morning, has been hemodynamically stable since arriving to the ED -Will hold HCTZ for now but will continue metoprolol -If he continues to be symptomatic may need to consider dosing adjustment of his metoprolol -FU orthostatic hypotension results (5) Elevated troponin: Plan: -Initial troponin noted to be 31.9, repeat at 32.2, likely elevated due to CK elevation and PASTORA -Patient is without chest pain and ECG changes -Will stop trending troponin for now (6) Anterior shoulder dislocation: Plan: -Continue right arm in sling -Pain control with Tylenol and lidocaine patch to start (7) BPH (benign prostatic hyperplasia): Plan: -Continue finasteride (8) Hypertension: Plan: -Hold HCTZ for now but will continue metoprolol as he has been hemodynamically stable since arrival to the ED (9) Hyperlipidemia: Plan: -Hold statin until CK is back at baseline (10) GERD without esophagitis: Plan: -Continue omeprazole (11) Chronic obstructive pulmonary disease: Plan: -Continue breathing treatments -Will add incentive spirometry and flutter therapy (12) CAD (coronary artery disease): Plan: -Hold statin with current Rhabdo and hold aspirin until he is stable from the Subdural hemorrhage Plan The patient was discussed with Dr. Barney at the time of the admisison Admission and Anticipated Discharge Date Admission Date: January 08, 2022 Subjective Patient feels well. No new symptoms. Review of Systems Review of Systems: All systems reviewed & are unremarkable except as noted in HPI & below Physical Exam Physical Exam: General: In no acute distress, stated age, chronically ill appearing HEENT: Normocephalic, atraumatic, no scleral icterus, pupils around round, symmetrical, and reactive to light, moist mucus membranes, trachea midline, no thyromegaly Chest/Pulm: No respiratory distress, symmetrical chest expansion, clear breath sounds throughout Cardiac: RRR, no murmurs noted Abdomen: Negative for ascites and bruising, normoactive bowel sounds, soft, non-tender to palpation throughout Musculoskeletal: Patient with right upper extremity currently in sling and with good motor function, pulse, and sensation, no tenderness to palpation over the entire spine, no other trauma noted Extremities: Radial, dorsalis pedis, and posterior tibial pulses are intact and symmetrical, no edema noted in the BL LE's Skin: Warm, dry, no rashes , lesions, or scars noted Neuro: Alert and oriented to person, place, month, year, and president, no focal defects, CN II-XII tested and intact, finger to nose test negative, no tremors noted Psych: No acute distress, calm and cooperative during the exam Results & Data Results & Data ([facility]) Vital Signs (Past 12 Hours) Vital Signs Temp Pulse Pulse Resp BP Pulse Ox O2 Del Method 01/09/22 19:00 36.8 C 88 20 148/72 H 97 Room Air 01/09/22 15:00 90 01/09/22 15:29 Room Air 01/09/22 15:08 36.9 C 71 20 156/80 H 92 Room Air 01/09/22 12:00 36.8 C 72 21 121/63 90 Room Air 01/09/22 11:00 80 17 151/85 H 90 Room Air PG Care Time/CCT Total # of Minutes Spent Total Time Spent with Patient: Total time spent is greater than 50% in coordination of care (as documented) at patient's floor/unit and/or counseling patient: Coding Level of Care Code 57056 Subseq Hosp Care Lvl 3 Diagnoses Brainstem hemorrhage I61.3 Rhabdomyolysis T79.6XXA Encounter type: initial encounter Rhabdomyolysis type: traumatic Pre-syncope R55 Hypotension I95.9 Elevated troponin R77.8 Anterior shoulder dislocation S43.014A Encounter type: initial encounter Laterality: right BPH (benign prostatic hyperplasia) N40.0 Hypertension I10 Hyperlipidemia E78.5 GERD without esophagitis K21.9 Chronic obstructive pulmonary disease J44.9 CAD (coronary artery disease) I25.10 (1) Rhabdomyolysis Encounter type: initial encounter Rhabdomyolysis type: traumatic Qualified Code(s): T79.6XXA - Traumatic ischemia of muscle, initial encounter (2) Anterior shoulder dislocation Encounter type: initial encounter Laterality: right Qualified Code(s): S43.014A - Anterior dislocation of right humerus, initial encounter
[2022-01-09] MEDS: ACETAMINOPHEN 325 MG TAB PO PRN (23:09)
[2022-01-10 05:59] LABS: Basophils # (auto) 0.05 K/uL (0-0.2); Basophils % (auto) 0.6 %; Eosinophils # (auto) 0.21 K/uL (0-0.50); Eosinophils % (auto) 2.7 %; Hematocrit (blood only) 35.7 % (40.1-51.0); Hemoglobin 11.8 g/dl (14.0-18.0); Immature Granulocytes # (auto) 0.04 K/uL (0.00-0.02); Immature Granulocytes % (auto) 0.5 %; Lymphocytes # (auto) 1.38 K/uL (1.2-3.4); Lymphocytes % (auto) 17.6 %; Mean Corpuscular Hemoglobin 31.5 pg (25.0-34.0); Mean Corpuscular Hgb Conc 33.1 g/dL (32.0-36.0); Mean Corpuscular Volume 95.2 fL (80.0-100.0); Mean Platelet Volume 9.5 fL (9.4-12.4); Monocytes # (auto) 1.01 K/uL (0.24-0.82); Monocytes % (auto) 12.9 %; Neutrophils # (auto) 5.16 K/uL (1.4-6.5); Neutrophils % (auto) 65.7 %; Platelet Count 162 K/uL (130-400); RDW Coefficient of Variation 13.8 % (11.5-14.5); RDW Standard Deviation 48.1 fL (36.4-46.3); Red Blood Count 3.75 M/uL (4.63-6.08); White Blood Count 7.85 K/ul (4.8-10.8)
[2022-01-10 06:16] LABS: Albumin Globulin Ratio 1.3 (0.9-2); Albumin Level 3.4 gm/dl (3.4-5.0); BUN Creatinine Ratio 18.7 (10-20); Calcium 8.3 mg/dl (8.5-10.1); Creatinine Clr Calc Pharmacy 43.6 ml/min; Est GFR (African American) 54.3 ml/min; Est GFR (Non-African American) 46.9 ml/min; Globulin 2.6 gm/dl (2.5-4.0); Phosphorus 2.9 mg/dl (2.5-4.9); Potassium 4.1 mmol/L (3.5-5.1)
[2022-01-10] MEDS: METOPROLOL SUCC 25MG EXT REL TAB PO SCH (08:26)
[2022-01-10] MEDS: UMECLIDINIUM/VILANTEROL 62.5/25MCG 7 PUFFS/INHALER INH SCH (08:26)
[2022-01-10] MEDS: SODIUM CHLORIDE 0.9% 1000ML 1,000 ML IV SCH (08:26)
[2022-01-10] MEDS: LIDOCAINE 5% 1 PATCH TD SCH (09:56)
--- NOTE | 2022-01-10 12:48 | Discharge Summary ---
Date of Service January 10, 2022 Admission HPI Per Admitting Provider Micky is an 81 year old male with a pMH significant for HTN, bradycardia, CAD, orthostatic hypotension, hyperlipidemia, COPD, GERD, idiopathic polyneuropathy, BPH, who presented to the to the [facility] ED on 01/08/22 from his PCP's office due to concerns for hypotension, dizziness, and nausea. Per chart review, the patient was last seen in the [facility] ED on 01/06/22 due to a fall outside and right anterior shoulder dislocation. During that visit the patient was found to be afebrile, hemodynamically stable, and stable on RA. Labs were remarkable for a leukocytosis of 22.73, left shift of 19.66, stable Hgb at 15, Cr of 1.46 (baseline appears to be approximately 1.3), stable electrolytes, and stable liver function. ECG showed sinus rhythm with frequent PVC's, as well as nonspecific T wave abnormalities in the inferior and lateral leads. Xrays of the right shoulder, humerus, and forearm showed "Right anterior shoulder dislocation with a probable small Hill-Sachs impaction fracture. CXR was negative for acute processes in the chest but again demonstrated the right anterior shoulder dislocation. CT of the head and C-spine were negative for acute findings. He was given local analgesia and his right shoulder dislocation was successfully reduced in the ED and arm placed in a sling. The patient had blood cultures drawn for precaution due to his leukocytosis and left shift, both of which are no growth to date at this time. Today, the patient arrived to his PCP's office for ED visit follow up. He was noted to be hypotensive with pressures of 78/50 and 68/42. The patient also expressed feeling lightheaded, dizzy, nauseous, and having episodes of presyncope at home. Due to the blood pressure and symptoms his PCP recommended he come to the ER to be evaluated. His PCP specifically mentioned being concerned for a delayed brain bleed. The patient tells me that since arriving home from his ED visit on 01/06 he has been experiencing lightheadedness, dizziness, headache, and nausea without visiting. He states that his lightheadedness and dizziness occurred both at rest and with position change. He denies recent fever, chills, changes in vision, hearing, taste, and smell, chest pain, SOB, abdominal pain, vomiting, diarrhea, dysuria, and recent falls. He did note that yesterday his urine was brown and he wasn't sure if it was bloody. He reports good urine output and states that his urine is now clear. In the ED today the patient was found to be afebrile, hemodynamically stable, and stable on RA. Labs were significant for an improving leukocytosis from 22 to 12, improving left shift from 19.66 to 9.12, drop in Hgb from 15.o to 12.8, cr of 1.7, sodium of 134, AST of 92, CK of 4326, high sensitivity troponin of 32, procal of 0.16, clean UA, and negative covid, flu, and RSV screen. Chest xray was negative for acute findings. CTA of the chest, abdomen, and pelvis showed "There is contusion/hemorrhage seen around the right shoulder/axilla, likely related to recent shoulder dislocation. Additionally, there is intramuscular hemorrhage within the right pectoralis and trapezius muscles. Cardiomegaly and emphysema. There is no evidence of pulmonary embolus in the main, lobar, or segm ental pulmonary arteries. Bibasilar peribronchial/pulmonary parenchymal changes as above, right significantly greater than left. This could be related to aspiration and clinical correlation will be required. There is no pneumothorax or pleural effusion. There is no evidence of solid organ injury in the abdomen or pelvis. There is a 3.6 cm infrarenal abdominal aortic aneurysm.". I spoke with the radiologist who read his CTA who confirmed that there was no active hemorrhage in the shoulder or chest on imaging. Prior to admission the patient was given a 1L NSS bolus, before accepting the patient we asked the ED staff to order a STAT CT of the head to evaluate for possible brain hemorrhage. At the time of the exam the patient was resting comfortably in bed in no acute distress with his son and daughter sitting bedside. I spoke to the patient and his family regarding the new CT head findings with a possible small brain hemorrhage. They understand that we are waiting to hear back from [facility] to see if he needs to be transferred. If they recommended he stay I explained that we will admit him to the ICU for close monitoring. Please refer to Dr. Barney's attestation for any changes to the treatment plan Discharge Data Allergies Allergy/AdvReac Type Severity Reaction Status Date / Time SESAR Inhibitors Allergy Unknown Unknown Verified 01/08/22 11:18 Consultations 01/08/22 15:20 ED Decision to Admit Stat 01/08/22 17:43 Consult Lei Seller Routine Ordered Studies 01/08/22 14:00 CT abd pelvis IV con only Stat CT angio chest PE protocol Stat 01/08/22 15:18 CT head/brain wo con Stat 01/09/22 07:00 CT head/brain wo con Urgent Hospital Course (1) Brainstem hemorrhage: Ruled out (2) Rhabdomyolysis: (3) Pre-syncope: (4) Hypotension: (5) Elevated troponin: (6) Anterior shoulder dislocation: (7) BPH (benign prostatic hyperplasia): (8) Hypertension: (9) Hyperlipidemia: (10) GERD without esophagitis: (11) Chronic obstructive pulmonary disease: (12) CAD (coronary artery disease): Discharge Plan Discharge Items Patient Disposition: Home - Self-Care Reason For Visit: DIZZINESS Discharge Diagnosis: Rhabdomyolysis Activity: Per Instructions section Non-emergency contact: Primary Care Provider Call non-emergency contact if: you have any medication questions and your symptoms worsen Follow-up/Referrals: Nissa Belle MD [Primary Care Provider] - Diet: Heart Healthy Addtl Attending Provider Instructions: You were admitted to [facility] from January 08 - 2021 due to fall with concern for subdural on CT head. You were diagnosed with rhabdomyolysis which was treated with intravenous fluids during your inpatient stay. Recommend continuing to stay well hydrated and holding your statin medication until follow up with your primary care provider. There was concern for a subdural hematoma on initial CT head which was ruled out on subsequent CT. As a result of the fall you sustained a shoulder dislocation that was reduced in the emergency room with with intramuscular hemorrhage within the right pectoralis and trapezius muscles. Please follow up with orthopedics to assess when to resume your aspirin. Continue to use acetaminophen as needed for pain and your arm sling as provided. Regarding your dizziness recommend discontinuation of your hydrochlorothiazide medication. If it continues recommend discontinuation of metoprolol but appears resolved at this time. You were incidentally noted to have a small abdominal aortic aneurysm. Please follow up with your primary care physician to discuss annual surveillance of this if desired. Pending Studies at Discharge: No Stand-Alone Forms: My [facility] Smove, Smoking Cessation Medications and DC Order Prescriptions: Continued atorvastatin 80 mg tablet 80 mg PO HS Qty: 90 3RF metoprolol succinate [Toprol XL] 25 mg tablet extended release 24 hr 12.5 mg PO DAILY 90 Days Qty: 45 3RF gabapentin 100 mg capsule 200 mg PO PM Qty: 180 1RF Anoro Ellipta 62.5-25 mcg/actuation blister with device See Rx Instructions .ROUTE .COMPLEX Qty: 180 3RF Dose Instruction: INHAL ONE PUFF BY MOUTH DAILY Rx Instructions: INHAL ONE PUFF BY MOUTH DAILY finasteride 5 mg tablet 5 mg PO HS Qty: 90 1RF aspirin 81 mg tablet,delayed release (DR/EC) 81 mg PO PM cetirizine 10 mg tablet 10 mg PO PM omeprazole magnesium 20 mg capsule,delayed release(DR/EC) 20 mg PO HS PRN (Reason: Heartburn) albuterol sulfate [ProAir HFA] 90 mcg/actuation HFA aerosol inhaler 1 - 2 puff INH Q4 PRN (Reason: sob) Label Comments: 1-2 PUFFS INH EVERY 4-6 HOURS PRN; Rx Instructions: 1-2 PUFFS INH EVERY 4-6 HOURS PRN; coenzyme Q10 [Co Q-10] 100 mg capsule 200 mg PO PM Discontinued hydrochlorothiazide 12.5 mg tablet 12.5 mg PO .weekly PRN (Reason: peripheral edema) Qty: 10 1RF Discharge Orders: Discharge Order (Routine); Ordered 01/10/22 Ordered By: Lex Sanchez/Other Patient Handouts: Rhabdomyolysis Admission Data Admit Date/Time: 01/08/22 17:45 Attending Provider: Lex Lr Admit Provider: Kumar Barney Primary Care Provider: Nissa Belle Other Providers: Kumar Barney ; Todd Vallecillo Coding Diagnoses Brainstem hemorrhage I61.3 Rhabdomyolysis T79.6XXA Encounter type: initial encounter Rhabdomyolysis type: traumatic Pre-syncope R55 Hypotension I95.9 Elevated troponin R77.8 Anterior shoulder dislocation S43.014A Encounter type: initial encounter Laterality: right BPH (benign prostatic hyperplasia) N40.0 Hypertension I10 Hyperlipidemia E78.5 GERD without esophagitis K21.9 Chronic obstructive pulmonary disease J44.9 CAD (coronary artery disease) I25.10
[2022-01-10] MEDS ORDERED: FINASTERIDE 5 MG TAB PO SCH (21:00)
[2022-01-10] MEDS ORDERED: ASPIRIN 81 MG ECTAB PO SCH (21:00)
== END 2022-01-10 14:48 | disposition home or self-care (01) | DRG 558 ==
LOC: ED 12:08 → SUATTDRO 17:45 → 1E 17:45 → 4W 01-09 09:11
DX: I95.89 Other hypotension; Y92.019 Unspecified place in single-family (private) house as the place of occurrence of the external cause; M62.82 Rhabdomyolysis; I25.2 Old myocardial infarction; I10 Essential (primary) hypertension; W19.XXXD Unspecified fall, subsequent encounter; J44.9 Chronic obstructive pulmonary disease, unspecified; Z79.82 Long term (current) use of aspirin; N17.9 Acute kidney failure, unspecified; K21.9 Gastro-esophageal reflux disease without esophagitis; I71.40 Abdominal aortic aneurysm, without rupture, unspecified; I95.1 Orthostatic hypotension; R94.8 Abnormal results of function studies of other organs and systems; Z98.1 Arthrodesis status; Z87.891 Personal history of nicotine dependence; I25.10 Atherosclerotic heart disease of native coronary artery without angina pectoris; Z95.5 Presence of coronary angioplasty implant and graft; I25.5 Ischemic cardiomyopathy; S43.012D Anterior subluxation of left humerus, subsequent encounter

== ENCOUNTER 2022-10-12 10:01 | Inpatient (IN) ==
--- NOTE | 2022-10-12 10:16 | Emergency Department Note ---
Impression & Plan Acute respiratory failure with hypoxia, Shortness of breath, Ischemic cardiomyopathy, Chest pain ED Provider Note NAME: USMAN CORREIA AGE: 82 SEX: M : 1940 ARRIVES VIA: Ambulance INFORMANT: Patient ED PROVIDER(S): Nikolay Dalton DO CHIEF COMPLAINT: chest pain, SOb and cough HPI: Patient is an 82-year-old male with a past medical history of ischemic cardiomyopathy, diabetes, CAD, hypertension, hyperlipidemia who presents to the ER for cough, chest pain and shortness of breath. Symptoms started yesterday with midsternal/left-sided chest pressure. He has been coughing up yellow productive sputum and has been short of breath with it. Symptoms have been present throughout last night into this morning. He was brought in by EMS. He was found to be hypoxic at 88%. He admits to being a previous smoker. This to history of COPD as well. No recent weight gain. PAST MEDICAL HISTORY:See Below PAST SURGICAL HISTORY:See Below FAMILY HISTORY:See Below SOCIAL HISTORY:See Below HOME MEDICATIONS:See Below ALLERGIES:See Below VITALS:See Below PHYSICAL EXAMINATION: GENERAL: Sitting up in bed, alert, disheveled on 2 L nasal cannula EYE EXAM: normal conjunctiva. PERRL and EOM's grossly intact. OROPHARYNX: mucous membranes are moist NECK: supple, no nuchal rigidity, no adenopathy, non-tender LUNGS: Mild wheezes bilaterally. Normal chest wall mechanics HEART: no murmurs, S1 normal and S2 normal ABDOMEN: abdomen soft, non-tender, normo-active bowel sounds, no masses, no rebound or guarding. UPPER EXTREMITIES: upper extremities are grossly normal. LOWER EXTREMITIES: No pitting edema. Calf cervical bilateral NEURO EXAM: Normal sensorium, cranial nerves II-XII grossly intact, normal speech, no gross weakness of arms, no gross weakness of legs. MEDICAL DECISION MAKING: Patient is an 82-year-old male who presents to the ER for the above-stated comp laint. External records reviewed. IV was established blood work was obtained. Labs show mild leukocytosis of 20,000. No significant anemia. BMP with a creatinine 1.7 up from baseline 1.4. LFTs bilirubin was unremarkable. Troponin was negative. proBNP mildly elevated at 327. Pro-Alon was normal. Lipase was normal. Viral panel was negative. Chest x-ray was clean. He was given neb treatment as well as steroids in combination with Rocephin and azithromycin for the leukocytosis is without any recent steroid use cough congestion and a productive cough. Patient remained on 4 L nasal cannula which she does not normally wear due to his hypoxia here and was admitted to Dr. Lex Lr for further evaluation management treatment. Triage Nursing notes reviewed. Limited review of prior medical records performed Vital Signs: reviewed and remarkable for no significant abnormalities Differential diagnosis: Cardiac ischemia, aortic dissection, pulmonary embolism, pneumothorax, pneumonia, pericarditis, myocarditis, esophageal rupture, GERD, cholecystitis, pancreatitis, musculoskeletal, as well as other pathologies. ER treatment provided: See below Diagnostics interpreted by me include EKG and cardiac monitoring as listed below: -Cardiac Monitoring: An order was placed for continuous cardiac monitoring. The monitor shows a rate of 70 with sinus rhythm. -ECG: Sinus rhythm rate of 66 Normal axis No PVCs QTc 429 T wave inversions in the high lateral leads -Laboratory studies:Interpreted by me as stated above in MDM and shown below. Imaging studies: Xrays: As interpreted by me: Portable AP upright 1 view of the chest shows no focal infiltrate CTs show: none Consultation(s): As described in MDM Procedures:none Critical Care: I have personally spent 35 minutes of critical care time in the direct management of this patient. This includes bedside care, interpretation of diagnostic studies, and testing, discussion with consultants, patient, and family members, and other required patient management activities. This 35 minutes is in excess of all separately billable procedures. Past Med/Surg History Medical History Anxiety Arthritis BPH (benign prostatic hyperplasia) CAD (coronary artery disease) COPD (chronic obstructive pulmonary disease) Depression Fall GERD (gastroesophageal reflux disease) Hx of fracture Hyperlipidemia Hypertension Ischemic cardiomyopathy Myocardial Infarction Smoker Urinary incontinence Surgical History Fusion of spine H/O surgical amputation of finger History of cardiac cath History of cataract surgery History of colonoscopy History of heart artery stent History of prostatectomy History of repair of rotator cuff History of tooth extraction S/P inguinal hernia repair S/P right knee arthroscopy Family History Brother Family hx of colon cancer Family history of diabetes mellitus Colorectal cancer Father Myocardial infarction Uncle Myocardial infarction Other Lung cancer Denies family history of Ovarian cancer Prostate cancer Breast cancer Social History Smoking Status: Former smoker Tobacco Type: Cigarettes Age Started Using Tobacco: 9; Age Quit Using Tobacco: 81; packs per day: 0; Cigarettes Per Day: 2; Second Hand Exposure: No; Do You Dip or Chew Tobacco: No; Hx Alcohol Use: No Hx Substance Use: No Preferred Language: Belarusian Communication Ability: Effective Visual Impairment: No Limitations Hearing Ability: Hard of Hearing Water Pollution Control Technician Required: No Beliefs That Will Affect Care: None marital status: Current Living Situation: Spouse current occupational status: retired How many Children do You have: 2 Feels Safe at Home: Yes Childhood Exposure to Second-Hand Smoke: Yes Diet: regular caffeine: Yes Dental Care, Regularly: No Physical Activity Frequency: Does not Exercise Seatbelt Use: always Sunscreen Use: No Assistive Devices: Cane, Denture - Upper, Denture - Lower and Glasses Allergies Allergies Allergy/AdvReac Type Severity Reaction Status Date / Time SESAR Inhibitors Allergy Unknown Unknown Verified 08/04/22 13:29 Home Meds Home Medications Medication Instructions Recorded Confirmed albuterol sulfate 90 mcg/actuation 1 - 2 puff inhalation Q4 PRN sob 08/25/18 10/12/22 aerosol inhaler (ProAir HFA) aspirin 81 mg tablet,delayed 81 mg PO PM 08/25/18 10/12/22 release cetirizine 10 mg tablet 10 mg PO PM 08/25/18 10/12/22 omeprazole magnesium 20 mg 20 mg PO HS PRN Heartburn 08/25/18 10/12/22 capsule,delayed release coenzyme Q10 100 mg capsule (Co 200 mg PO PM 04/24/19 10/12/22 Q-10) calcium carbonate 600 mg calcium 600 mg PO DAILY 05/13/22 10/12/22 (1,500 mg) tablet (Calcium) cholecalciferol (vitamin D3) 10 10 mcg PO DAILY 05/13/22 10/12/22 mcg (400 unit) capsule vitamin E (dl, acetate) 1 tab PO DAILY 07/26/22 10/12/22 Previous Rx's Medication Instructions Recorded umeclidinium 62.5 mcg-vilanterol See Rx Instructions .Route 11/23/21 25 mcg/actuation powdr for .COMPLEX #180 ea inhalation (Anoro Ellipta) tamsulosin 0.4 mg capsule 0.4 mg PO DAILY #90 caps 02/01/22 metoprolol succinate 25 mg 12.5 mg PO DAILY 90 days #45 tabs 04/19/22 tablet,extended release 24 hr (Toprol XL) gabapentin 100 mg capsule 200 mg PO PM #180 caps 04/26/22 atorvastatin 80 mg tablet 80 mg PO HS #90 tabs 06/10/22 finasteride 5 mg tablet 5 mg PO HS #90 tabs 06/11/22 Results & Data (ED) Vital Signs Vital Signs - 24 hr 10/12/22 10:14 10/12/22 10:14 10/12/22 10:14 Temperature 36.8 C Temperature Source Temporal Artery Scan Pulse Rate 82 Pulse Rate [Apical] Pulse Rhythm [Apical] Respiratory Rate 16 Respiratory Effort / Characteristics Short of Breath Non-Labored Respiratory Depth Normal Normal Blood Pressure 115/71 Blood Pressure [Right Arm] Blood Pressure Mean 85 Blood Pressure Mean [Right Arm] Pulse Oximetry 96 93 Oxygen Delivery Method Nasal Cannula Nasal Cannula Oxygen Flow Rate 6 6 Sepsis Recent Fever Within 48 Hours No Sepsis New/Unexplained Change in Mental Status No Sepsis Action Taken by Nursing No Action Required 10/12/22 10:14 10/12/22 10:30 10/12/22 11:30 Temperature Temperature Source Pulse Rate Pulse Rate [Apical] 74 73 Pulse Rhythm [Apical] Regular Respiratory Rate 16 18 Respiratory Effort / Characteristics Non-Labored Non-Labored Accessory Muscle Use Respiratory Depth Normal Normal Blood Pressure Blood Pressure [Right Arm] 108/68 103/67 Blood Pressure Mean Blood Pressure Mean [Right Arm] 81 79 Pulse Oximetry 93 93 96 Oxygen Delivery Method Nasal Cannula Nasal Cannula Nasal Cannula Oxygen Flow Rate 6 4 4 Sepsis Recent Fever Within 48 Hours Sepsis New/Unexplained Change in Mental Status Sepsis Action Taken by Nursing 10/12/22 12:00 Temperature Temperature Source Pulse Rate Pulse Rate [Apical] 67 Pulse Rhythm [Apical] Respiratory Rate 20 Respiratory Effort / Characteristics Respiratory Depth Blood Pressure Blood Pressure [Right Arm] 96/50 L Blood Pressure Mean Blood Pressure Mean [Right Arm] 65 Pulse Oximetry 96 Oxygen Delivery Method Nasal Cannula Oxygen Flow Rate 4 Sepsis Recent Fever Within 48 Hours Sepsis New/Unexplained Change in Mental Status Sepsis Action Taken by Nursing Laboratory Data 10/12/22 10:10 10/12/22 10:10 Lab Results 10/12/22 10/12/22 10/12/22 Range/Units 10:10 10:10 10:10 WBC 20.56 H (4.8-10.8) K/ul RBC 5.02 (4.70-6.10) M/uL Hgb 15.6 (14.0-18.0) g/dl Hct 47.3 (42.0-52.0) % MCV 94.2 (80.0-100.0) fL MCH 31.1 (25.0-34.0) pg MCHC 33.0 (32.0-36.0) g/dL RDW Std Deviation 47.3 H (36.4-46.3) fL RDW Coeff of Indira 13.7 (11.5-14.5) % Plt Count 158 (130-400) K/uL MPV 10.0 (9.4-12.4) fL Immature Gran % (Auto) 0.6 % Neut % (Auto) 87.6 % Lymph % (Auto) 5.2 % Erie % (Auto) 6.2 % Eos % (Auto) 0.1 % Baso % (Auto) 0.3 % Neut # (Auto) 18.01 H (1.40-6.50) K/uL Lymph # (Auto) 1.06 L (1.2-3.4) K/uL Erie # (Auto) 1.28 H (0.11-0.59) K/uL Eos # (Auto) 0.02 (0-0.50) K/uL Baso # (Auto) 0.06 (0-0.2) K/uL Immature Gran # (Auto) 0.13 (0.01-0.20) K/uL Sodium 138 (136-145) mmol/L Potassium 4.1 (3.5-5.1) mmol/L Chloride 105 (98-107) mmol/L Carbon Dioxide 26 (21-32) mmol/L Anion Gap 7 (3-11) BUN 32 H (6-23) mg/dl Creatinine 1.74 H (0.6-1.4) mg/dl Est Cr Clr Drug Dosing Not Reportable Est GFR ( Amer) 41.1 ml/min Est GFR (Non-Af Amer) 35.5 ml/min BUN/Creatinine Ratio 18.4 (10-20) Glucose 119 H (70-99(Fasting)) mg/dl Calcium 9.1 (8.6-10.3) mg/dl Total Bilirubin 1.5 H (0.2-1.0) mg/dl AST 17 (13-39) U/L ALT 15 (7-52) U/L Alkaline Phosphatase 83 (34-104) U/L Troponin I High Sens 16.7 (0-20) pg/ml B-Natriuretic Peptide 327 H (0-100) pg/ml Total Protein 7.0 (6.0-8.3) gm/dl Albumin 4.1 (3.4-5.0) gm/dl Globulin 2.9 (2.5-4.0) gm/dl Albumin/Globulin Ratio 1.4 (0.9-2) Lipase 17 (11-82) U/L Procalcitonin (0-0.5) ng/ml Adenovirus (PCR) (NotDetected) B. pertussis DNA (PCR) (NotDetected) B.parapertussis DNA PCR (NotDetected) C. pneumoniae DNA (PCR) (NotDetected) Coronavirus OC43 (PCR) (NotDetected) Coronavirus HKU1 (PCR) (NotDetected) Coronavirus 229E (PCR) (NotDetected) SARS-CoV-2 (PCR) (NotDetected) Coronavirus NL63 (PCR) (NotDetected) Human Metapneumovir PCR (NotDetected) Influenza Type A (PCR) (NotDetected) Influenza Type B (PCR) (NotDetected) M. pneumoniae (PCR) (NotDetected) Parainfluenza 1 (PCR) (NotDetected) Parainfluenza 2 (PCR) (NotDetected) Parainfluenza 3 (PCR) (NotDetected) Parainfluenza 4 (PCR) (NotDetected) RSV (PCR) (NotDetected) Entero/Rhino (PCR) (NotDetected) 10/12/22 10/12/22 Range/Units 10:10 10:20 WBC (4.8-10.8) K/ul RBC (4.70-6.10) M/uL Hgb (14.0-18.0) g/dl Hct (42.0-52.0) % MCV (80.0-100.0) fL MCH (25.0-34.0) pg MCHC (32.0-36.0) g/dL RDW Std Deviation (36.4-46.3) fL RDW Coeff of Indira (11.5-14.5) % Plt Count (130-400) K/uL MPV (9.4-12.4) fL Immature Gran % (Auto) % Neut % (Auto) % Lymph % (Auto) % Erie % (Auto) % Eos % (Auto) % Baso % (Auto) % Neut # (Auto) (1.40-6.50) K/uL Lymph # (Auto) (1.2-3.4) K/uL Erie # (Auto) (0.11-0.59) K/uL Eos # (Auto) (0-0.50) K/uL Baso # (Auto) (0-0.2) K/uL Immature Gran # (Auto) (0.01-0.20) K/uL Sodium (136-145) mmol/L Potassium (3.5-5.1) mmol/L Chloride (98-107) mmol/L Carbon Dioxide (21-32) mmol/L Anion Gap (3-11) BUN (6-23) mg/dl Creatinine (0.6-1.4) mg/dl Est Cr Clr Drug Dosing Est GFR ( Amer) ml/min Est GFR (Non-Af Amer) ml/min BUN/Creatinine Ratio (10-20) Glucose (70-99(Fasting)) mg/dl Calcium (8.6-10.3) mg/dl Total Bilirubin (0.2-1.0) mg/dl AST (13-39) U/L ALT (7-52) U/L Alkaline Phosphatase (34-104) U/L Troponin I High Sens (0-20) pg/ml B-Natriuretic Peptide (0-100) pg/ml Total Protein (6.0-8.3) gm/dl Albumin (3.4-5.0) gm/dl Globulin (2.5-4.0) gm/dl Albumin/Globulin Ratio (0.9-2) Lipase (11-82) U/L Procalcitonin 0.26 (0-0.5) ng/ml Adenovirus (PCR) Not Detected (NotDetected) B. pertussis DNA (PCR) Not Detected (NotDetected) B.parapertussis DNA PCR Not Detected (NotDetected) C. pneumoniae DNA (PCR) Not Detected (NotDetected) Coronavirus OC43 (PCR) Not Detected (NotDetected) Coronavirus HKU1 (PCR) Not Detected (NotDetected) Coronavirus 229E (PCR) Not Detected (NotDetected) SARS-CoV-2 (PCR) Not Detected (NotDetected) Coronavirus NL63 (PCR) Not Detected (NotDetected) Human Metapneumovir PCR Not Detected (NotDetected) Influenza Type A (PCR) Not Detected (NotDetected) Influenza Type B (PCR) Not Detected (NotDetected) M. pneumoniae (PCR) Not Detected (NotDetected) Parainfluenza 1 (PCR) Not Detected (NotDetected) Parainfluenza 2 (PCR) Not Detected (NotDetected) Parainfluenza 3 (PCR) Not Detected (NotDetected) Parainfluenza 4 (PCR) Not Detected (NotDetected) RSV (PCR) Not Detected (NotDetected) Entero/Rhino (PCR) Not Detected (NotDetected) Administered Medications Discontinued Medications Albuterol (Albuterol 0.083% Nebu Soln 3 Ml Vial) 2.5 mg NEB NOW STA; Protocol Stop: 10/12/22 11:43 Last Admin: 10/12/22 11:59 Dose: 2.5 mg Documented By: JUAN DANIEL Ceftriaxone Sodium (Rocephin) 2,000 mg in 70 mls @ 140 mls/hr IV NOW STA Stop: 10/12/22 12:11 Last Admin: 10/12/22 11:59 Dose: 140 mls/hr Documented By: JUAN DANIEL Azithromycin 500 mg/ Dextrose 255 mls @ 127.5 mls/hr IV NOW STA Stop: 10/12/22 13:41 Last Admin: 10/12/22 12:19 Dose: 127.5 mls/hr Documented By: JUAN DANIEL Methylprednisolone (Methylprednisolone 40 Mg/Ml Vial) 40 mg IV NOW STA Stop: 10/12/22 11:43 Last Admin: 10/12/22 11:58 Dose: 40 mg Documented By: JUAN DANIEL Imaging Data Radiologist's Impression: Chest X-Ray 10/12/22 10:08 XR chest 1V portable CLINICAL HISTORY: Chest pain, nonspecific TECHNIQUE: Single frontal radiograph of the chest was obtained. Comparison: Comparison is made to chest radiograph 07/26/2022 FINDINGS: No lines and tubes are seen. Calcified aortic knob is seen. The lungs are clear. No evidence of pleural effusion or pneumothorax. IMPRESSION: No acute chest disease. ACT 112: Negative or not required by law. Electronically signed by: Drew Stringer M.D. 10/12/2022 10:34 AM Discharge Plan Visit Data Chief Complaint: Chest Pain ED Provider: Nikolay Dalton Discharge Problem: Acute respiratory failure with hypoxia, Shortness of breath, Ischemic car diomyopathy, Chest pain Discharge Instructions Interventions: ED Discharge Assessment Last Done: 10/12/22 15:09
[2022-10-12 10:35] LABS: Basophils # (auto) 0.06 K/uL (0-0.2); Basophils % (auto) 0.3 %; Eosinophils # (auto) 0.02 K/uL (0-0.50); Eosinophils % (auto) 0.1 %; Hematocrit (blood only) 47.3 % (42.0-52.0); Hemoglobin 15.6 g/dl (14.0-18.0); Immature Granulocytes # (auto) 0.13 K/uL (0.01-0.20); Immature Granulocytes % (auto) 0.6 %; Lymphocytes # (auto) 1.06 K/uL (1.2-3.4); Lymphocytes % (auto) 5.2 %; Mean Corpuscular Hemoglobin 31.1 pg (25.0-34.0); Mean Corpuscular Volume 94.2 fL (80.0-100.0); Monocytes # (auto) 1.28 K/uL (0.11-0.59); Monocytes % (auto) 6.2 %; Neutrophils # (auto) 18.01 K/uL (1.40-6.50); Neutrophils % (auto) 87.6 %; Platelet Count 158 K/uL (130-400); RDW Coefficient of Variation 13.7 % (11.5-14.5); RDW Standard Deviation 47.3 fL (36.4-46.3); Red Blood Count 5.02 M/uL (4.70-6.10); White Blood Count 20.56 K/ul (4.8-10.8)
--- NOTE | 2022-10-12 10:35 | XRay Report ---
XR chest 1V portable CLINICAL HISTORY: Chest pain, nonspecific TECHNIQUE: Single frontal radiograph of the chest was obtained. Comparison: Comparison is made to chest radiograph 07/26/2022 FINDINGS: No lines and tubes are seen. Calcified aortic knob is seen. The lungs are clear. No evidence of pleur al effusion or pneumothorax. IMPRESSION: No acute chest disease. ACT 112: Negative or not required by law. Electronically signed by: Drew Stringer M.D. 10/12/2022 10:34 AM
[2022-10-12 10:52] LABS: Alanine Aminotransferase 15 U/L (7-52); Albumin Globulin Ratio 1.4 (0.9-2); Albumin Level 4.1 gm/dl (3.4-5.0); Alkaline Phosphatase 83 U/L (34-104); Anion Gap 7 (3-11); Aspartate Aminotransferase 17 U/L (13-39); BUN Creatinine Ratio 18.4 (10-20); Bilirubin,Total 1.5 mg/dl (0.2-1.0); Blood Urea Nitrogen 32 mg/dl (6-23); Calcium 9.1 mg/dl (8.6-10.3); Carbon Dioxide 26 mmol/L (21-32); Chloride 105 mmol/L (98-107); Est GFR (African American) 41.1 ml/min; Est GFR (Non-African American) 35.5 ml/min; Globulin 2.9 gm/dl (2.5-4.0); Glucose 119 mg/dl (70-99(Fasting)); Lipase 17 U/L (11-82); Potassium 4.1 mmol/L (3.5-5.1); Sodium 138 mmol/L (136-145)
[2022-10-12 10:56] LABS: Troponin I High Sensitivity 16.7 pg/ml (0-20)
[2022-10-12 11:41] LABS: Adenovirus PCR Not Detected (NotDetected); Bordetella parapertussis PCR Not Detected (NotDetected); Bordetella pertussis PCR Not Detected (NotDetected); Chlamydia pneumoniae PCR Not Detected (NotDetected); Coronavirus 229E PCR Not Detected (NotDetected); Coronavirus CoV-2 (COVID19)PCR Not Detected (NotDetected); Coronavirus HKU1 PCR Not Detected (NotDetected); Coronavirus NL63 PCR Not Detected (NotDetected); Coronavirus OC43PCR Not Detected (NotDetected); Human Metapneumovirus PCR Not Detected (NotDetected); Influenza A PCR Not Detected (NotDetected); Influenza B PCR Not Detected (NotDetected); Mycoplasma pneumoniae PCR Not Detected (NotDetected); Parainfluenza Virus 1 PCR Not Detected (NotDetected); Parainfluenza Virus 2 PCR Not Detected (NotDetected); Parainfluenza Virus 3 PCR Not Detected (NotDetected); Parainfluenza Virus 4 PCR Not Detected (NotDetected); Respiratory Syncytial VirusPCR Not Detected (NotDetected); Rhinovirus/Enterovirus PCR Not Detected (NotDetected)
[2022-10-12] MEDS ORDERED: ALBUTEROL 0.083% NEBU SOLN 3 ML VIAL NEB STA (11:42)
[2022-10-12] MEDS ORDERED: cefTRIAXone SODIUM 2,000 MG/70 ML BAG IV STA (11:42)
[2022-10-12] MEDS ORDERED: AZITHROMYCIN 500 MG in DEXTROSE 5% 250 ML IV STA (11:42)
--- NOTE | 2022-10-12 12:31 | History & Physical Report ---
Date of Service October 12, 2022 Assessment & Plan (1) COPD exacerbation: Plan: Severe PFTs in 2019 with FEV1 46% of predicted. FEV1/FVC 55%. Solu-medrol 40mg IV BID Duoneb QID Azithromycin 500mg PO for three days today Continue his usual Anoro Ellipta (2) Acute sinusitis: Plan: Possible diagnosis and possible explanation for his WBC. Would favor treating with IV Unasyn to switch to Augmentin on discharge given not clear history from patient and elevated WBC. Although diagnosis somewhat questionable from history and exam and he appears to have some stress leukocytosis in the past. (3) Hypoxia: Plan: Without significant respiratory distress Baseline not on oxygen Aim O2 sats > 88% in setting of COPD (4) Chest pain: Plan: Exertional chest pain for 3-4 weeks suggestive of angina. Troponin negative therefore do not suspect current shortness of breath is anginal. Recent dobutamine stress echo reassuring on September 20 however if still occuring despite COPD exacerbation improving consider cardiology evaluation. (5) Hypertension: Plan: Continue metoprolol (6) Hyperlipidemia: Plan: Continue atorvastatin (7) GERD without esophagitis: Plan: No current symptoms, monitor closely while on steroids. PRN pantoprazole (8) Ischemic cardiomyopathy: Plan: Continue metoprolol succinate Plan VTE Prophylaxis - heparin 500 units SQ BID Diet - regular Disposition - admit to med/tele Admission and Anticipated Discharge Date Admission Date: October 12, 2022 History of Present Illness Chief Complaint: Shortness of breath Primary Care Provider: Nissa Belle MD Micky Andre is an 82 year old male who presents to the ER with shortness of breath. Symptoms started yesterday. Getting progressively worse on exertion therefore decided to come to the ER today. Cough up yellow phlegm this morning, worse recently but also going on for years. He is unclear on whether he is having sinus pain at times saying no but also that the oxygen if bothering his sinuses and he is having pain around both eyes. No fever or chills. Took multiple coughing medications yesterday and thinks that gave him diarrhea - loose just started this morning, no recent antibiotics or watery diarrhea. No abdominal pain. No urinary symptoms. No worsening cough after eating. On further questioning he notes 3-4 weeks of exertional chest pain, mild this morning, 3-4am when he got up to go to the bathroom, only lasted for a couple of seconds. Never at rest. Mostly quit smoking in 1994 but occasional cigarettes after that. Did not take his medications this morning. Allergies Allergy/AdvReac Type Severity Reaction Status Date / Time SESAR Inhibitors Allergy Unknown Unknown Verified 08/04/22 13:29 Home Medications Medication Instructions Recorded Confirmed Type albuterol sulfate 90 mcg/actuation 1 - 2 puff inhalation Q4 PRN sob 08/25/18 10/12/22 History aerosol inhaler (ProAir HFA) aspirin 81 mg tablet,delayed 81 mg PO PM 08/25/18 10/12/22 History release cetirizine 10 mg tablet 10 mg PO PM 08/25/18 10/12/22 History omeprazole magnesium 20 mg 20 mg PO HS PRN Heartburn 08/25/18 10/12/22 History capsule,delayed release coenzyme Q10 100 mg capsule (Co 200 mg PO PM 04/24/19 10/12/22 History Q-10) umeclidinium 62.5 mcg-vilanterol See Rx Instructions .Route 11/23/21 10/12/22 Rx 25 mcg/actuation powdr for .COMPLEX #180 ea inhalation (Anoro Ellipta) tamsulosin 0.4 mg capsule 0.4 mg PO DAILY #90 caps 02/01/22 10/12/22 Rx metoprolol succinate 25 mg 12.5 mg PO DAILY 90 days #45 tabs 04/19/22 10/12/22 Rx tablet,extended release 24 hr (Toprol XL) gabapentin 100 mg capsule 200 mg PO PM #180 caps 04/26/22 10/12/22 Rx calcium carbonate 600 mg calcium 600 mg PO DAILY 05/13/22 10/12/22 History (1,500 mg) tablet (Calcium) cholecalciferol (vitamin D3) 10 10 mcg PO DAILY 05/13/22 10/12/22 History mcg (400 unit) capsule atorvastatin 80 mg tablet 80 mg PO HS #90 tabs 06/10/22 10/12/22 Rx finasteride 5 mg tablet 5 mg PO HS #90 tabs 06/11/22 10/12/22 Rx vitamin E (dl, acetate) 1 tab PO DAILY 07/26/22 10/12/22 History Past Med/Surg History Medical History Anxiety Arthritis BPH (benign prostatic hyperplasia) CAD (coronary artery disease) COPD (chronic obstructive pulmonary disease) Depression Fall GERD (gastroesophageal reflux disease) Hx of fracture Hyperlipidemia Hypertension Ischemic cardiomyopathy Myocardial Infarction Smoker Urinary incontinence Surgical History Fusion of spine H/O surgical amputation of finger History of cardiac cath History of cataract surgery History of colonoscopy History of heart artery stent History of prostatectomy History of repair of rotator cuff History of tooth extraction S/P inguinal hernia repair S/P right knee arthroscopy Family History Brother Family hx of colon cancer Family history of diabetes mellitus Colorectal cancer Father Myocardial infarction Uncle Myocardial infarction Other Lung cancer Denies family history of Ovarian cancer Prostate cancer Breast cancer Social History Smoking Status: Former smoker Tobacco Type: Cigarettes Age Started Using Tobacco: 9; Age Quit Using Tobacco: 81; packs per day: 0; Cigarettes Per Day: 1-2 packs a day. Quit 30 years ago.; Second Hand Exposure: No; Do You Dip or Chew Tobacco: No; Tobacco Cessation Education Requested by Patient: No Hx Alcohol Use: Yes Alcohol type: beer and hard liquor Hx Substance Use: No Preferred Language: Greek Communication Ability: Effective Visual Impairment: No Limitations Hearing Ability: Hard of Hearing Insurance Business Analyst Required: No Beliefs That Will Affect Care: None marital status: Current Living Situation: Spouse current occupational status: retired How many Children do You have: 2 Other Information That Helps Us Care for You: No Feels Safe at Home: Yes Safety Concerns: Feels Safe At This Time Childhood Exposure to Second-Hand Smoke: Yes Diet: regular caffeine: Yes Dental Care, Regularly: No Physical Activity Frequency: Does not Exercise Seatbelt Use: always Sunscreen Use: No Assistive Devices: Cane, Denture - Upper, Denture - Lower, Glasses, Hospital Bed, Oxygen - Continuous and Walker Assistive Devices Comment: Only have upper dentures right now. Does not use oxygen at home. Review of Systems Review of Systems: All systems reviewed & are unremarkable except as noted in HPI & below Weight loss Dizziness intermittent for years - no worse in last week Physical Exam Constitutional: WD/WN, vitals as above Eyes: PERRL, conjunctivae normal, anicteric sclerae ENMT: external ear and nose normal, oropharynx normal Respiratory: normal respiratory effort; no respiratory distress Auscultation: + wheezes (expiratory throughout); breath sounds present, no diminished lung sounds, no crackles, no rales and no rhonchi Cardiovascular: Rate/Rhythm: regular rate and regular rhythm Heart Sounds: no murmur Extremities: + pedal edema (trace); + abnormal capillary refill and no calf tenderness Gastrointestinal (Abdomen): normal bowel sounds, soft, nontender, no hepatosplenomegaly Musculoskeletal: no cyanosis or clubbing, extremities motor strength 5/5 Skin: no rashes, warm and dry Neurologic: moves all extremities and awake; not confused Psychiatric: A+Ox3, euthymic affect Genitourinary: no CVA tenderness Results & Data Results & Data Vital Signs (Past 12 Hours) Vital Signs Temp Pulse Pulse Resp BP BP Pulse Ox 10/12/22 12:00 67 20 96/50 L 96 10/12/22 11:30 73 18 103/67 96 10/12/22 10:30 74 16 108/68 93 10/12/22 10:14 93 10/12/22 10:14 93 10/12/22 10:14 36.8 C 82 16 115/71 96 O2 Del Method O2 Flow Rate 10/12/22 12:00 Nasal Cannula 4 10/12/22 11:30 Nasal Cannula 4 10/12/22 10:30 Nasal Cannula 4 10/12/22 10:14 Nasal Cannula 6 10/12/22 10:14 Nasal Cannula 6 10/12/22 10:14 Nasal Cannula 6 Laboratory Results Abnormal lab results 10/12/22 10/12/22 10/12/22 Range/Units 10:10 10:10 10:10 WBC 20.56 H (4.8-10.8) K/ul RDW Std Deviation 47.3 H (36.4-46.3) fL Neut # (Auto) 18.01 H (1.40-6.50) K/uL Lymph # (Auto) 1.06 L (1.2-3.4) K/uL Christian # (Auto) 1.28 H (0.11-0.59) K/uL BUN 32 H (6-23) mg/dl Creatinine 1.74 H (0.6-1.4) mg/dl Glucose 119 H (70-99(Fasting)) mg/dl Total Bilirubin 1.5 H (0.2-1.0) mg/dl B-Natriuretic Peptide 327 H (0-100) pg/ml Diagnostic Findings XR chest 1V portable CLINICAL HISTORY: Chest pain, nonspecific TECHNIQUE: Single frontal radiograph of the chest was obtained. Comparison: Comparison is made to chest radiograph 07/26/2022 FINDINGS: No lines and tubes are seen. Calcified aortic knob is seen. The lungs are clear. No evidence of pleural effusion or pneumothorax. IMPRESSION: No acute chest disease. Medications Administered ER Medications Given: Duoneb 3ml NEB Solu-medrol 40mg IV Ceftriaxone 2000mg IV Azithromycin 500mg IV ECG Rate (beats per minute): 66 Rhythm: normal sinus Findings: + other (T wave flattening in lateral leads) Comparison ECG Date: from (January 08, 2022) Change: no significant change Code Status & VTE Plan Code Status DNR/DNI as discussed with the patient and his VTE Prophylaxis Plan VTE Prophylaxis will be ordered: Yes PG Care Time/CCT Total # of Minutes Spent Total Time Spent with Patient: Total time spent is greater than 50% in coordination of care (as documented) at patient's floor/unit and/or counseling patient: Coding Level of Care Code 24361 INT INP/OBS CARE 3/75MIN Diagnoses COPD exacerbation J44.1 Acute sinusitis J01.90 Hypoxia R09.02 Chest pain R07.9 Hypertension I10 Hyperlipidemia E78.5 GERD without esophagitis K21.9 Ischemic cardiomyopathy I25.5
[2022-10-12] MEDS ORDERED: ACETAMINOPHEN 325 MG TAB PO PRN (15:08)
[2022-10-12] MEDS ORDERED: ONDANSETRON INJ 2 MG/ML 2 ML VIAL IV PRN (15:08)
[2022-10-12] MEDS ORDERED: PANTOprazole 40 MG TAB PO PRN (15:15)
[2022-10-12] MEDS ORDERED: AMPICILLIN/SULBACTAM SOD 3,000 MG in 0.9 % SODIUM CHLORIDE 100 ML IV ONE (16:00)
[2022-10-12] MEDS: ALBUT/IPRATROP 3MG/0.5MG NEB 3 ML VIAL NEB SCH ×2 (16:37→19:38)
--- NOTE | 2022-10-12 17:56 | Electrocardiogram Report ---
Test Reason : Blood Pressure : / mmHG Vent. Rate : 066 BPM Atrial Rate : 066 BPM P-R Int : 242 ms QRS Dur : 090 ms QT Int : 410 ms P-R-T Axes : 069 -01 116 degrees QTc Int : 429 ms Sinus rhythm with 1st degree A-V block T wave abnormality, consider lateral ischemia Abnormal ECG When compared with ECG of 08-JAN-2022 12:24, AL interval has increased Confirmed by Josh Gooden ([id number]) on 10/12/2022 5:55:45 PM Referred By: Confirmed By:Josh Gooden
[2022-10-12 21:22] LABS: Appearance Urine Cloudy (Clear); Bacteria Urine Automated Negative (Negative); Bilirubin Urine Negative (Negative); Blood Urine Negative (Negative); Color Urine Dark Yellow; Epithelial Cell Urine Auto 20-30 /lpf (0-5); Glucose Urine UA Negative (Negative); Ketones Urine Trace (Negative); Leukocyte Esterase Urine Negative (Negative); Nitrite Urine Negative (Negative); Protein Urine Trace (Negative); RBC Urine Automated 0-4 /hpf (0-4); Specific Gravity Urine 1.027 (1.000-1.030); Urobilinogen Urine Negative (Negative)
[2022-10-12 21:35] LABS: Cast Urine Automated >30 /lpf (0-5)
[2022-10-12] MEDS: methylPREDNISolone 40 MG in SYRINGE 0 ML IV SCH (21:55)
[2022-10-12] MEDS: FINASTERIDE 5 MG TAB PO SCH (21:56)
[2022-10-12] MEDS: ATORVASTATIN 40 MG TAB PO SCH (21:56)
[2022-10-12] MEDS: ASPIRIN 81 MG ECTAB PO SCH (21:56)
[2022-10-12] MEDS: GABAPENTIN 100 MG CAP PO SCH (21:57)
[2022-10-12] MEDS: guaiFENesin 600 MG TABCR PO SCH (21:57)
[2022-10-12] MEDS: AMPICILLIN/SULBACTAM SOD 3,000 MG in 0.9 % SODIUM CHLORIDE 100 ML IV SCH (22:57)
[2022-10-13] MEDS: AMPICILLIN/SULBACTAM SOD 3,000 MG in 0.9 % SODIUM CHLORIDE 100 ML IV SCH ×4 (04:25→22:08)
[2022-10-13 07:18] LABS: Hematocrit (blood only) 43.7 % (42.0-52.0); Hemoglobin 14.7 g/dl (14.0-18.0); Mean Corpuscular Hgb Conc 33.6 g/dL (32.0-36.0); Mean Corpuscular Volume 92.2 fL (80.0-100.0); Mean Platelet Volume 10.2 fL (9.4-12.4); Platelet Count 141 K/uL (130-400); RDW Coefficient of Variation 13.4 % (11.5-14.5); RDW Standard Deviation 45.6 fL (36.4-46.3); Red Blood Count 4.74 M/uL (4.70-6.10); White Blood Count 17.66 K/ul (4.8-10.8)
[2022-10-13] MEDS: ALBUT/IPRATROP 3MG/0.5MG NEB 3 ML VIAL NEB SCH ×2 (07:38→19:24)
[2022-10-13 07:42] LABS: Basophils # (auto) 0.02 K/uL (0-0.2); Basophils % (auto) 0.1 %; Echinocytes 3+; Immature Granulocytes # (auto) 0.14 K/uL (0.01-0.20); Immature Granulocytes % (auto) 0.8 %; Lymphocytes % (auto) 3.4 %; Monocytes % (auto) 1.7 %; Ovalocytes 1+
[2022-10-13 07:52] LABS: Albumin Globulin Ratio 1.4 (0.9-2); Albumin Level 3.7 gm/dl (3.4-5.0); BUN Creatinine Ratio 27.2 (10-20); Bilirubin,Total 0.7 mg/dl (0.2-1.0); Calcium 8.4 mg/dl (8.6-10.3); Creatinine Clr Calc Pharmacy 40.6 ml/min; Est GFR (African American) 50.4 ml/min; Est GFR (Non-African American) 43.5 ml/min; Globulin 2.7 gm/dl (2.5-4.0); Potassium 3.7 mmol/L (3.5-5.1); Total Protein 6.4 gm/dl (6.0-8.3)
--- NOTE | 2022-10-13 07:56 | Hospitalist Progress Note ---
Date of Service October 13, 2022 Assessment & Plan (1) COPD exacerbation: Plan: Severe PFTs in 2019 with FEV1 46% of predicted. FEV1/FVC 55%. Of note, worked in [employer] until ~1994 and retired early, suspect underlying lung disease/likely benefit from pulm in follow up. ?Worsened w/ recent humidity/allergies, reports increased post-nasal drip waking him up at night O2 requirement improving from 4L --> 2L at present, 90% Remains on Azithromycin x 3 days (and Unasyn for sinusitis as below and plan for Augmentin at dc) Continue Duonebs QID scheduled for today, will change to BID scheduled for today/consider prn for tomorrow Solumedrol 40mg IV BID for now, could consider increasing to TID if needed but will continue for now Added hypertonic saline nebs BID for clearance of sputum Continue mucinex, incentive spirometer, flutter valve Sputum cx pending -- monitor BNP slight elevation on admission, recheck ordered. Most recent ECHO Dec 2021 w/ sclerotic aortic valve with trace regurgitation. EF 55-60% Lasix 20mg IV x 1, monitor response (previously on HCTZ for diuretic/LE edema, weights not significantly elevated, BNP 190 improved from day prior) Also reporting what appears like post-nasal drip/possible underlying reflux. Changed ppi to once daily SCHEDULED, given dose this morning Supplemental O2 to maintain sats Repeating CXR w/ 2 view given question CXR today w/o significant edema but noting questionable subtle pleural R lung apex ? overlapping tissues vs tiny PTX less likely but not ecluded. Continue his usual Anoro Ellipta Monitor labs/exam on repeat (2) Acute sinusitis: Plan: Possible diagnosis and possible explanation for his WBC. Would favor treating with IV Unasyn to switch to Augmentin on discharge given not clear history from patient and elevated WBC. Although diagnosis somewhat questionable from history and exam and he appears to have some stress leukocytosis in the past. (3) Hypoxia: Plan: Without significant respiratory distress however NOT on OXYGEN at baseline. Prior smoker but has been many years, 1ppd Incentive spirometer, flutter valve, nebs, abx as above Aim O2 sats > 88% in setting of COPD --> titrated to 2L this afternoon, SpO2 90% Baseline not on oxygen and would need 2 step prior to dc ?allergy vs reflux component as well vs from volume overload Monitor CXR on repeat/consider consultation w/ pulmonology (4) Chest pain: Plan: Exertional chest pain for 3-4 weeks suggestive of angina. Troponin negative therefore do not suspect current shortness of breath is anginal. Recent dobutamine stress echo reassuring on September 20 however if still occuring despite COPD exacerbation improving consider cardiology evaluation. PPI changed to scheduled as above Repeating CXR w/ 2 view given question CXR today w/o significant edema but noting questionable subtle pleural R lung apex ? overlapping tissues vs tiny PTX less likely but not ecluded. (5) Hypertension: Plan: Continue metoprolol (6) Hyperlipidemia: Plan: Continue atorvastatin (7) GERD without esophagitis: Plan: No current symptoms, monitor closely while on steroids. PRN pantoprazole changed to SCHEDULED and likely needing daily at baseline (8) Ischemic cardiomyopathy: Plan: Continue metoprolol succinate Plan VTE Prophylaxis - heparin 500 units SQ BID lasix x 1, monitor response. changed PPI to scheduled. Monitor repeat CXR/consider pulm consultation continued inpatient stay, will consult PT/OT while inpatient as well to ensure no needs at discharge Admission and Anticipated Discharge Date Admission Date: October 12, 2022 Supervising Physician Co-Signing Physician Notes The patient was not seen by me. The chart was reviewed. Case discussed with RC Espinoza. Agree with assessment and plan Subjective Eval this morning, down to 2L NC, not using O2 at home. States his SOB came on acutely and thinks maybe due to the hot/humid weather. Not really having much sputum productions.Discussed adding hypertonic saline/pulm consulted while inpatient. He takes his inhaler at night typically but reports having increase post-nasal drip at night. Denies taking anything regularly for reflux. Has not had that while inpatient at present. Decreased cough. He notes he had been taking a water pill but cant remember what that was or if he is still on this. Appears in January 2022 was on HCTZ for leg swelling that may have been stopped for complaints of orthostatic hypotension. Ok w/ calling for more info. Physical Exam Constitutional: WD/WN, vitals as above chronically ill appearing but NAD sitting up in bed Eyes: PERRL, conjunctivae normal, anicteric sclerae ENMT: external ear and nose normal, oropharynx normal Neck: ?JVD Respiratory: normal respiratory effort; no respiratory distress Auscultation: + diminished lung sounds (bilateral bases) and + wheezes (DECREASED expiratory wheezing throughout); breath sounds present, no crackles, no rales and no rhonchi on 4L NC to maintain saturations Cardiovascular: Rate/Rhythm: regular rate and regular rhythm Heart Sounds: no murmur Extremities: + pedal edema (trace); + abnormal capillary refill and no calf tenderness Gastrointestinal (Abdomen): normal bowel sounds, soft, nontender, no hepatosplenomegaly Musculoskeletal: no cyanosis or clubbing, extremities motor strength 5/5 Skin: no rashes, warm and dry Neurologic: moves all extremities and awake; not confused Psychiatric: A+Ox3, euthymic affect Genitourinary: no CVA tenderness Results & Data Results & Data Vital Signs (Past 12 Hours) Vital Signs Temp Pulse Pulse Resp BP Pulse Ox O2 Del Method 10/13/22 07:38 74 16 96 Nasal Cannula 10/13/22 07:07 113 H 10/13/22 04:50 36.5 C 102 H 20 115/79 94 Nasal Cannula 10/12/22 23:00 36.7 C 88 20 99/65 L 93 Nasal Cannula 10/13/22 00:30 81 10/12/22 21:12 110 H 16 94 Nasal Cannula 10/12/22 20:23 36.6 C 115 H 20 100/63 93 Nasal Cannula O2 Flow Rate 10/13/22 07:38 4 10/13/22 07:07 10/13/22 04:50 4 10/12/22 23:00 4 10/13/22 00:30 10/12/22 21:12 4 10/12/22 20:23 4 Laboratory Results 10/13/22 10/13/22 10/13/22 Range/Units 06:27 06:27 06:27 WBC 17.66 H (4.8-10.8) K/ul RBC 4.74 (4.70-6.10) M/uL Hgb 14.7 (14.0-18.0) g/dl Hct 43.7 (42.0-52.0) % MCV 92.2 (80.0-100.0) fL MCH 31.0 (25.0-34.0) pg MCHC 33.6 (32.0-36.0) g/dL RDW Std Deviation 45.6 (36.4-46.3) fL RDW Coeff of Indira 13.4 (11.5-14.5) % Plt Count 141 (130-400) K/uL MPV 10.2 (9.4-12.4) fL Immature Gran % (Auto) 0.8 % Neut % (Auto) 94.0 % Lymph % (Auto) 3.4 % [place] % (Auto) 1.7 % Eos % (Auto) 0.0 % Baso % (Auto) 0.1 % Neut # (Auto) 16.60 H (1.40-6.50) K/uL Lymph # (Auto) 0.60 L (1.2-3.4) K/uL [place] # (Auto) 0.30 (0.11-0.59) K/uL Eos # (Auto) 0.00 (0-0.50) K/uL Baso # (Auto) 0.02 (0-0.2) K/uL Immature Gran # (Auto) 0.14 (0.01-0.20) K/uL Ovalocytes 1+ Echinocytes 3+ Sodium 135 L (136-145) mmol/L Potassium 3.7 (3.5-5.1) mmol/L Chloride 105 (98-107) mmol/L Carbon Dioxide 20 L (21-32) mmol/L Anion Gap 10 (3-11) BUN 40 H (6-23) mg/dl Creatinine 1.47 H (0.6-1.4) mg/dl Est Cr Clr Drug Dosing 40.6 Est GFR ( Amer) 50.4 ml/min Est GFR (Non-Af Amer) 43.5 ml/min BUN/Creatinine Ratio 27.2 H (10-20) Glucose 170 H (70-99(Fasting)) mg/dl Calcium 8.4 L (8.6-10.3) mg/dl Total Bilirubin 0.7 D (0.2-1.0) mg/dl AST 15 (13-39) U/L ALT 14 (7-52) U/L Alkaline Phosphatase 74 (34-104) U/L Troponin I High Sens (0-20) pg/ml B-Natriuretic Peptide (0-100) pg/ml Total Protein 6.4 (6.0-8.3) gm/dl Albumin 3.7 (3.4-5.0) gm/dl Globulin 2.7 (2.5-4.0) gm/dl Albumin/Globulin Ratio 1.4 (0.9-2) Lipase (11-82) U/L Procalcitonin 0.20 (0-0.5) ng/ml Urine Color Urine Appearance (Clear) Urine pH (4.5-7.5) Ur Specific [place] (1.000-1.030) Urine Protein (Negative) Urine Glucose (UA) (Negative) Urine Ketones (Negative) Urine Blood (Negative) Urine Nitrite (Negative) Urine Bilirubin (Negative) Urine Urobilinogen (Negative) Ur Leukocyte Esterase (Negative) Urine WBC (Auto) (0-5) /hpf Urine RBC (Auto) (0-4) /hpf U Hyaline Cast (Auto) (0-5) /lpf U Epithel Cells (Auto) (0-5) /lpf Urine Bacteria (Auto) (Negative) Adenovirus (PCR) (NotDetected) B. pertussis DNA (PCR) (NotDetected) B.parapertussis DNA PCR (NotDetected) C. pneumoniae DNA (PCR) (NotDetected) Coronavirus OC43 (PCR) (NotDetected) Coronavirus HKU1 (PCR) (NotDetected) Coronavirus 229E (PCR) (NotDetected) SARS-CoV-2 (PCR) (NotDetected) Coronavirus NL63 (PCR) (NotDetected) Human Metapneumovir PCR (NotDetected) Influenza Type A (PCR) (NotDetected) Influenza Type B (PCR) (NotDetected) M. pneumoniae (PCR) (NotDetected) Parainfluenza 1 (PCR) (NotDetected) Parainfluenza 2 (PCR) (NotDetected) Parainfluenza 3 (PCR) (NotDetected) Parainfluenza 4 (PCR) (NotDetected) RSV (PCR) (NotDetected) Entero/Rhino (PCR) (NotDetected) 10/12/22 10/12/22 10/12/22 Range/Units Unknown 10:20 10:10 WBC (4.8-10.8) K/ul RBC (4.70-6.10) M/uL Hgb (14.0-18.0) g/dl Hct (42.0-52.0) % MCV (80.0-100.0) fL MCH (25.0-34.0) pg MCHC (32.0-36.0) g/dL RDW Std Deviation (36.4-46.3) fL RDW Coeff of Indira (11.5-14.5) % Plt Count (130-400) K/uL MPV (9.4-12.4) fL Immature Gran % (Auto) % Neut % (Auto) % Lymph % (Auto) % [place] % (Auto) % Eos % (Auto) % Baso % (Auto) % Neut # (Auto) (1.40-6.50) K/uL Lymph # (Auto) (1.2-3.4) K/uL [place] # (Auto) (0.11-0.59) K/uL Eos # (Auto) (0-0.50) K/uL Baso # (Auto) (0-0.2) K/uL Immature Gran # (Auto) (0.01-0.20) K/uL Ovalocytes Echinocytes Sodium (136-145) mmol/L Potassium (3.5-5.1) mmol/L Chloride (98-107) mmol/L Carbon Dioxide (21-32) mmol/L Anion Gap (3-11) BUN (6-23) mg/dl Creatinine (0.6-1.4) mg/dl Est Cr Clr Drug Dosing Est GFR ( Amer) ml/min Est GFR (Non-Af Amer) ml/min BUN/Creatinine Ratio (10-20) Glucose (70-99(Fasting)) mg/dl Calcium (8.6-10.3) mg/dl Total Bilirubin (0.2-1.0) mg/dl AST (13-39) U/L ALT (7-52) U/L Alkaline Phosphatase (34-104) U/L Troponin I High Sens (0-20) pg/ml B-Natriuretic Peptide (0-100) pg/ml Total Protein (6.0-8.3) gm/dl Albumin (3.4-5.0) gm/dl Globulin (2.5-4.0) gm/dl Albumin/Globulin Ratio (0.9-2) Lipase (11-82) U/L Procalcitonin 0.26 (0-0.5) ng/ml Urine Color Dark Yellow Urine Appearance Cloudy A (Clear) Urine pH 5.0 (4.5-7.5) Ur Specific [place] 1.027 (1.000-1.030) Urine Protein Trace H (Negative) Urine Glucose (UA) Negative (Negative) Urine Ketones Trace H (Negative) Urine Blood Negative (Negative) Urine Nitrite Negative (Negative) Urine Bilirubin Negative (Negative) Urine Urobilinogen Negative (Negative) Ur Leukocyte Esterase Negative (Negative) Urine WBC (Auto) 1-5 (0-5) /hpf Urine RBC (Auto) 0-4 (0-4) /hpf U Hyaline Cast (Auto) >30 H (0-5) /lpf U Epithel Cells (Auto) 20-30 H (0-5) /lpf Urine Bacteria (Auto) Negative (Negative) Adenovirus (PCR) Not Detected (NotDetected) B. pertussis DNA (PCR) Not Detected (NotDetected) B.parapertussis DNA PCR Not Detected (NotDetected) C. pneumoniae DNA (PCR) Not Detected (NotDetected) Coronavirus OC43 (PCR) Not Detected (NotDetected) Coronavirus HKU1 (PCR) Not Detected (NotDetected) Coronavirus 229E (PCR) Not Detected (NotDetected) SARS-CoV-2 (PCR) Not Detected (NotDetected) Coronavirus NL63 (PCR) Not Detected (NotDetected) Human Metapneumovir PCR Not Detected (NotDetected) Influenza Type A (PCR) Not Detected (NotDetected) Influenza Type B (PCR) Not Detected (NotDetected) M. pneumoniae (PCR) Not Detected (NotDetected) Parainfluenza 1 (PCR) Not Detected (NotDetected) Parainfluenza 2 (PCR) Not Detected (NotDetected) Parainfluenza 3 (PCR) Not Detected (NotDetected) Parainfluenza 4 (PCR) Not Detected (NotDetected) RSV (PCR) Not Detected (NotDetected) Entero/Rhino (PCR) Not Detected (NotDetected) 08/10/12/22 10/12/22 Range/Units 10:10 10:10 10:10 WBC 20.56 H (4.8-10.8) K/ul RBC 5.02 (4.70-6.10) M/uL Hgb 15.6 (14.0-18.0) g/dl Hct 47.3 (42.0-52.0) % MCV 94.2 (80.0-100.0) fL MCH 31.1 (25.0-34.0) pg MCHC 33.0 (32.0-36.0) g/dL RDW Std Deviation 47.3 H (36.4-46.3) fL RDW Coeff of Indira 13.7 (11.5-14.5) % Plt Count 158 (130-400) K/uL MPV 10.0 (9.4-12.4) fL Immature Gran % (Auto) 0.6 % Neut % (Auto) 87.6 % Lymph % (Auto) 5.2 % [place] % (Auto) 6.2 % Eos % (Auto) 0.1 % Baso % (Auto) 0.3 % Neut # (Auto) 18.01 H (1.40-6.50) K/uL Lymph # (Auto) 1.06 L (1.2-3.4) K/uL [place] # (Auto) 1.28 H (0.11-0.59) K/uL Eos # (Auto) 0.02 (0-0.50) K/uL Baso # (Auto) 0.06 (0-0.2) K/uL Immature Gran # (Auto) 0.13 (0.01-0.20) K/uL Ovalocytes Echinocytes Sodium 138 (136-145) mmol/L Potassium 4.1 (3.5-5.1) mmol/L Chloride 105 (98-107) mmol/L Carbon Dioxide 26 (21-32) mmol/L Anion Gap 7 (3-11) BUN 32 H (6-23) mg/dl Creatinine 1.74 H (0.6-1.4) mg/dl Est Cr Clr Drug Dosing Not Reportable Est GFR ( Amer) 41.1 ml/min Est GFR (Non-Af Amer) 35.5 ml/min BUN/Creatinine Ratio 18.4 (10-20) Glucose 119 H (70-99(Fasting)) mg/dl Calcium 9.1 (8.6-10.3) mg/dl Total Bilirubin 1.5 H (0.2-1.0) mg/dl AST 17 (13-39) U/L ALT 15 (7-52) U/L Alkaline Phosphatase 83 (34-104) U/L Troponin I High Sens 16.7 (0-20) pg/ml B-Natriuretic Peptide 327 H (0-100) pg/ml Total Protein 7.0 (6.0-8.3) gm/dl Albumin 4.1 (3.4-5.0) gm/dl Globulin 2.9 (2.5-4.0) gm/dl Albumin/Globulin Ratio 1.4 (0.9-2) Lipase 17 (11-82) U/L Procalcitonin (0-0.5) ng/ml Urine Color Urine Appearance (Clear) Urine pH (4.5-7.5) Ur Specific [place] (1.000-1.030) Urine Protein (Negative) Urine Glucose (UA) (Negative) Urine Ketones (Negative) Urine Blood (Negative) Urine Nitrite (Negative) Urine Bilirubin (Negative) Urine Urobilinogen (Negative) Ur Leukocyte Esterase (Negative) Urine WBC (Auto) (0-5) /hpf Urine RBC (Auto) (0-4) /hpf U Hyaline Cast (Auto) (0-5) /lpf U Epithel Cells (Auto) (0-5) /lpf Urine Bacteria (Auto) (Negative) Adenovirus (PCR) (NotDetected) B. pertussis DNA (PCR) (NotDetected) B.parapertussis DNA PCR (NotDetected) C. pneumoniae DNA (PCR) (NotDetected) Coronavirus OC43 (PCR) (NotDetected) Coronavirus HKU1 (PCR) (NotDetected) Coronavirus 229E (PCR) (NotDetected) SARS-CoV-2 (PCR) (NotDetected) Coronavirus NL63 (PCR) (NotDetected) Human Metapneumovir PCR (NotDetected) Influenza Type A (PCR) (NotDetected) Influenza Type B (PCR) (NotDetected) M. pneumoniae (PCR) (NotDetected) Parainfluenza 1 (PCR) (NotDetected) Parainfluenza 2 (PCR) (NotDetected) Parainfluenza 3 (PCR) (NotDetected) Parainfluenza 4 (PCR) (NotDetected) RSV (PCR) (NotDetected) Entero/Rhino (PCR) (NotDetected) Diagnostic Findings Chest X-Ray 10/12/22 10:08 XR chest 1V portable CLINICAL HISTORY: Chest pain, nonspecific TECHNIQUE: Single frontal radiograph of the chest was obtained. Comparison: Comparison is made to chest radiograph 07/26/2022 FINDINGS: No lines and tubes are seen. Calcified aortic knob is seen. The lungs are clear. No evidence of pleural effusion or pneumothorax. IMPRESSION: No acute chest disease. ACT 112: Negative or not required by law. Electronically signed by: Drew Stringer M.D. 10/12/2022 10:34 AM PG Care Time/CCT Total # of Minutes Spent Total Time Spent with Patient: Total time spent is greater than 50% in coordination of care (as documented) at patient's floor/unit and/or counseling patient: Coding Level of Care Code 47603 SUB INP/OBS CARE 3/50MIN Diagnoses COPD exacerbation J44.1 Acute sinusitis J01.90 Hypoxia R09.02 Chest pain R07.9 Hypertension I10 Hyperlipidemia E78.5 GERD without esophagitis K21.9 Ischemic cardiomyopathy I25.5
[2022-10-13] MEDS ORDERED: METOPROLOL SUCC 25MG EXT REL TAB PO SCH ×2 (09:00→21:00)
[2022-10-13] MEDS: guaiFENesin 600 MG TABCR PO SCH ×2 (09:02→20:49)
[2022-10-13] MEDS: AZITHROMYCIN 250 MG TAB PO SCH (09:05)
[2022-10-13] MEDS: TAMSULOSIN HCL 0.4 MG CAP PO SCH (09:06)
[2022-10-13] MEDS: HEPARIN SOD 5,000 UNIT/0.5 ML VIAL SQ SCH ×2 (09:06→20:48)
[2022-10-13] MEDS: UMECLIDINIUM/VILANTEROL 62.5/25MCG 7 PUFFS/INHALER INH SCH (09:07)
[2022-10-13] MEDS: methylPREDNISolone 40 MG in SYRINGE 0 ML IV SCH ×2 (09:07→22:08)
[2022-10-13] MEDS ORDERED: FUROSEMIDE INJ 20 MG/2 ML VIAL IV ONE (10:21)
--- NOTE | 2022-10-13 11:56 | XRay Report ---
XR chest 1V portable HISTORY: Shortness of breath. COMPARISON: Chest 10/12/2022. FINDINGS: The conus is normal in size. No pleural effusions. Emphysema is suggested. There are few bi basilar linear densities suggesting subsegmental atelectasis. No evidence for pulmonary edema. Questi onable subtle pleural reflection within the right lung apex is likely due to overlapping soft tissues . A tiny pneumothorax is considered less likely but not entirely excluded. No acute fractures identif ied. IMPRESSION: 1. No evidence for pulmonary edema. 2. Emphysema with bibasilar linear densities. This favors subsegmental atelectasis. 3. Questionable subtle pleural reflection within the right lung apex is likely due to overlapping sof t tissues. A tiny pneumothorax is considered less likely but not entirely excluded. Follow-up PA and lateral views of the chest can be used for further evaluation. ACT 112: Negative or not required by law. Electronically signed by: Shorty Nicole M.D. 10/13/2022 11:55 AM
[2022-10-13] MEDS ORDERED: CALCIUM CARBONATE 500 MG CHEWABLE TAB PO PRN (16:21)
--- NOTE | 2022-10-13 17:03 | XRay Report ---
XR chest 2V PA/lateral HISTORY: Abnormal chest x-ray. f/u prior CXR, ? tiny PTX COMPARISON: Chest 10/13/2022. FINDINGS: A subtle right pleural reflection again suggested. This is likely due to overlying artifact rather than a tiny right pneumothorax. Follow-up chest x-ray in 12 hours can be performed for furthe r evaluation. This is not confirmed on the lateral view. The heart is top normal in size. Emphysema a nd mild interstitial thickening persists. A few bibasilar linear densities favor subsegmental atelect asis. No new focal lung consolidations to suggest a pneumonia. There is mild central pulmonary vascul ar congestion without overt edema. There are trace bilateral pleural effusions. IMPRESSION: 1. Mild central pulmonary vascular congestion without overt edema. 2. A subtle right pleural reflection again suggested. This is likely due to overlying artifact rather than a tiny right pneumothorax. Follow-up chest x-ray in 12 hours can be performed for further evalu ation. ACT 112: Negative or not required by law. Electronically signed by: Shorty Nicole M.D. 10/13/2022 5:01 PM
[2022-10-13] MEDS: SODIUM CHLOR 7% 4 ML NEB NEB SCH (19:24)
[2022-10-13] MEDS: ATORVASTATIN 40 MG TAB PO SCH (20:48)
[2022-10-13] MEDS: ASPIRIN 81 MG ECTAB PO SCH (20:48)
[2022-10-13] MEDS: PANTOprazole 40 MG TAB PO SCH (20:49)
[2022-10-13] MEDS: FINASTERIDE 5 MG TAB PO SCH (20:49)
[2022-10-13] MEDS: GABAPENTIN 100 MG CAP PO SCH (20:49)
[2022-10-13] MEDS ORDERED: PANTOprazole 40 MG TAB PO SCH (21:00)
[2022-10-14] MEDS: AMPICILLIN/SULBACTAM SOD 3,000 MG in 0.9 % SODIUM CHLORIDE 100 ML IV SCH ×2 (03:41→10:00)
[2022-10-14] MEDS ORDERED: COUGH DROP (SUGAR FREE) LOZ 24 LOZ/1 BOX BUCCAL ONE (03:48)
[2022-10-14] MEDS: SODIUM CHLOR 7% 4 ML NEB NEB SCH (07:40)
[2022-10-14] MEDS: ALBUT/IPRATROP 3MG/0.5MG NEB 3 ML VIAL NEB SCH (07:40)
--- NOTE | 2022-10-14 07:41 | Hospitalist Progress Note ---
Date of Service October 14, 2022 Assessment & Plan (1) COPD exacerbation: Plan: Severe PFTs in 2019 with FEV1 46% of predicted. FEV1/FVC 55%. Of note, worked in [employer] until ~1994 and retired early, suspect underlying lung disease/likely benefit from pulm in follow up. ?Worsened w/ recent humidity/allergies, reports increased post-nasal drip waking him up at night O2 requirement improving from 4L --> 2L at present, 90% Remains on Azithromycin x 3 days (and Unasyn for sinusitis as below and plan for Augmentin at [place]) Continue Duonebs QID scheduled for today, will change to BID scheduled for today/consider prn for tomorrow Solumedrol 40mg IV BID for now, could consider increasing to TID if needed but will continue for now Added hypertonic saline nebs BID for clearance of sputum Continue mucinex, incentive spirometer, flutter valve Sputum cx pending -- monitor BNP slight elevation on admission, recheck ordered. Most recent ECHO Dec 2021 w/ sclerotic aortic valve with trace regurgitation. EF 55-60% Lasix 20mg IV x 1, monitor response (previously on HCTZ for diuretic/LE edema, weights not significantly elevated, BNP 190 improved from day prior) Also reporting what appears like post-nasal drip/possible underlying reflux. Changed ppi to once daily SCHEDULED, given dose this morning Supplemental O2 to maintain sats Repeating CXR w/ 2 view given question CXR today w/o significant edema but noting questionable subtle pleural R lung apex ? overlapping tissues vs tiny PTX less likely but not ecluded. Continue his usual Anoro Ellipta Monitor labs/exam on repeat 10/14 -- CXR needing follow up for possible small PTX last evening, repeat CXR this morning ordered. Currently back up to 4L NC. PPI was increased to BID for reflux reported discomfort, denied CP but if ?PTX given his severe emphysema at baseline. Consider pulm consult pending repeat CXR (2) Acute sinusitis: Plan: Possible diagnosis and possible explanation for his WBC. Would favor treating with IV Unasyn to switch to Augmentin on discharge given not clear history from patient and elevated WBC. Although diagnosis somewhat questionable from history and exam and he appears to have some stress leukocytosis in the past. (3) Hypoxia: Plan: Without significant respiratory distress however NOT on OXYGEN at baseline. Prior smoker but has been many years, 1ppd Incentive spirometer, flutter valve, nebs, abx as above Aim O2 sats > 88% in setting of COPD --> titrated to 2L this afternoon, SpO2 90% Baseline not on oxygen and would need 2 step prior to dc ?allergy vs reflux component as well vs from volume overload Monitor CXR on repeat/consider consultation w/ pulmonology (4) Chest pain: Plan: Exertional chest pain for 3-4 weeks suggestive of angina. Troponin negative therefore do not suspect current shortness of breath is anginal. Recent dobutamine stress echo reassuring on September 20 however if still occuring despite COPD exacerbation improving consider cardiology evaluation. PPI changed to scheduled as above Repeating CXR w/ 2 view given question CXR today w/o significant edema but noting questionable subtle pleural R lung apex ? overlapping tissues vs tiny PTX less likely but not ecluded. (5) Hypertension: Plan: Continue metoprolol (6) Hyperlipidemia: Plan: Continue atorvastatin (7) GERD without esophagitis: Plan: No current symptoms, monitor closely while on steroids. PRN pantoprazole changed to SCHEDULED and likely needing daily at baseline (8) Ischemic cardiomyopathy: Plan: Continue metoprolol succinate Plan VTE Prophylaxis - heparin 500 units SQ BID lasix x 1, monitor response. changed PPI to scheduled. Monitor repeat CXR/consider pulm consultation continued inpatient stay, will consult PT/OT while inpatient as well to ensure no needs at discharge Admission and Anticipated Discharge Date Admission Date: October 12, 2022 Results & Data Results & Data Vital Signs (Past 12 Hours) Vital Signs Temp Pulse Pulse Resp BP Pulse Ox O2 Del Method 10/14/22 04:37 36.3 C L 102 H 20 130/86 93 Nasal Cannula 10/13/22 22:05 123 H 10/13/22 22:05 Nasal Cannula 10/13/22 23:56 36.5 C 96 H 20 131/81 95 Nasal Cannula 10/13/22 19:57 36.6 C 68 18 115/71 92 Room Air O2 Flow Rate 10/14/22 04:37 4 10/13/22 22:05 10/13/22 22:05 2 10/13/22 23:56 4 10/13/22 19:57 PG Care Time/CCT Total # of Minutes Spent Total Time Spent with Patient: Total time spent is greater than 50% in coordination of care (as documented) at patient's floor/unit and/or counseling patient: Coding Diagnoses COPD exacerbation J44.1 Acute sinusitis J01.90 Hypoxia R09.02 Chest pain R07.9 Hypertension I10 Hyperlipidemia E78.5 GERD without esophagitis K21.9 Ischemic cardiomyopathy I25.5
[2022-10-14 08:52] LABS: Hematocrit (blood only) 43.1 % (42.0-52.0); Hemoglobin 14.7 g/dl (14.0-18.0); Mean Corpuscular Hemoglobin 31.4 pg (25.0-34.0); Mean Corpuscular Hgb Conc 34.1 g/dL (32.0-36.0); Mean Corpuscular Volume 92.1 fL (80.0-100.0); Mean Platelet Volume 10.2 fL (9.4-12.4); Platelet Count 160 K/uL (130-400); RDW Coefficient of Variation 13.8 % (11.5-14.5); RDW Standard Deviation 46.6 fL (36.4-46.3); Red Blood Count 4.68 M/uL (4.70-6.10); White Blood Count 19.85 K/ul (4.8-10.8)
[2022-10-14] MEDS ORDERED: PANTOprazole 40 MG TAB PO SCH (09:00)
--- NOTE | 2022-10-14 09:14 | XRay Report ---
XR chest 2V PA/lateral CLINICAL HISTORY: f.u possible PTX COMPARISON STUDY: Chest CT January 08, 2022. Chest radiograph October 13, 2022 at 3:43 PM. FINDINGS: No definite pneumothorax is noted. The possible tiny right apical pneumothorax on prior ja[address] st radiographs was probably artifactual. Cardiac mediastinal silhouette is stable. No evidence for ov ert pulmonary edema. No consolidation to suggest pneumonia. IMPRESSION: No definite pneumothorax. Possible tiny right apical pneumothorax on prior chest radiogra phs was likely artifactual. ACT 112: Negative or not required by law. Electronically signed by: Hubert Goodwin M.D. 10/14/2022 9:11 AM
[2022-10-14 09:18] LABS: Albumin Globulin Ratio 1.3 (0.9-2); Albumin Level 3.5 gm/dl (3.4-5.0); BUN Creatinine Ratio 26.6 (10-20); Bilirubin,Total 0.6 mg/dl (0.2-1.0); Calcium 8.2 mg/dl (8.6-10.3); Creatinine Clr Calc Pharmacy 37.7 ml/min; Est GFR (African American) 46.2 ml/min; Est GFR (Non-African American) 39.9 ml/min; Globulin 2.7 gm/dl (2.5-4.0); Magnesium 2.1 mg/dl (1.7-2.4); Potassium 3.9 mmol/L (3.5-5.1); Total Protein 6.2 gm/dl (6.0-8.3)
[2022-10-14] MEDS: UMECLIDINIUM/VILANTEROL 62.5/25MCG 7 PUFFS/INHALER INH SCH (09:18)
[2022-10-14] MEDS: AZITHROMYCIN 250 MG TAB PO SCH (09:18)
[2022-10-14] MEDS: TAMSULOSIN HCL 0.4 MG CAP PO SCH (09:19)
[2022-10-14] MEDS: PANTOprazole 40 MG TAB PO SCH (09:19)
[2022-10-14] MEDS: guaiFENesin 600 MG TABCR PO SCH (09:19)
[2022-10-14] MEDS: HEPARIN SOD 5,000 UNIT/0.5 ML VIAL SQ SCH ×2 (09:38→10:41)
[2022-10-14] MEDS: methylPREDNISolone 40 MG in SYRINGE 0 ML IV SCH (10:00)
--- NOTE | 2022-10-14 14:26 | Discharge Summary ---
Date of Service October 14, 2022 Admission HPI Per Admitting Provider Micky Andre is an 82 year old male who presents to the ER with shortness of breath. Symptoms started yesterday. Getting progressively worse on exertion therefore decided to come to the ER today. Cough up yellow phlegm this morning, worse recently but also going on for years. He is unclear on whether he is having sinus pain at times saying no but also that the oxygen if bothering his sinuses and he is having pain around both eyes. No fever or chills. Took multiple coughing medications yesterday and thinks that gave him diarrhea - loose just started this morning, no recent antibiotics or watery diarrhea. No a bdominal pain. No urinary symptoms. No worsening cough after eating. On further questioning he notes 3-4 weeks of exertional chest pain, mild this morning, 3-4am when he got up to go to the bathroom, only lasted for a couple of seconds. Never at rest. Mostly quit smoking in 1994 but occasional cigarettes after that. Did not take his medications this morning. Admission Exam Per Admitting Provider Constitutional: WD/WN, vitals as above Eyes: PERRL, conjunctivae normal, anicteric sclerae ENMT: external ear and nose normal, oropharynx normal Respiratory: normal respiratory effort; no respiratory distress Auscultation: + wheezes (expiratory throughout); breath sounds present, no diminished lung sounds, no crackles, no rales and no rhonchi Cardiovascular: Rate/Rhythm: regular rate and regular rhythm Heart Sounds: no murmur Extremities: + pedal edema (trace); + abnormal capillary refill and no calf tenderness Gastrointestinal (Abdomen): normal bowel sounds, soft, nontender, no hepatosplenomegaly Musculoskeletal: no cyanosis or clubbing, extremities motor strength 5/5 Skin: no rashes, warm and dry Neurologic: moves all extremities and awake; not confused Psychiatric: A+Ox3, euthymic affect Genitourinary: no CVA tenderness Principal Diagnosis COPD Exacerbation, Sinusitis Discharge Exam Constitutional WD/WN, vitals as above irritable and demanding to be discharge today, will not stay in hospital Eyes PERRL, conjunctivae normal, anicteric sclerae ENMT external ear and nose normal, oropharynx normal Respiratory normal respiratory effort; no respiratory distress Auscultation: + diminished lung sounds (bilateral bases) and + wheezes (DECREASED expiratory wheezing throughout); breath sounds present, no crackles, no rales and no rhonchi on room air following 2step -- does need 2L w/ ambulation Cardiovascular Rate/Rhythm: regular rate and regular rhythm Heart Sounds: + murmur (systolic) Extremities: + pedal edema (trace); + abnormal capillary refill and no calf tenderness Gastrointestinal (Abdomen) normal bowel sounds, soft, nontender, no hepatosplenomegaly Musculoskeletal no cyanosis or clubbing, extremities motor strength 5/5 Skin no rashes, warm and dry Neurologic moves all extremities and awake; not confused Psychiatric Orientation: alert and oriented x 3 irritable Genitourinary no CVA tenderness Discharge Data Allergies Allergy/AdvReac Type Severity Reaction Status Date / Time SESAR Inhibitors Allergy Unknown Unknown Verified 08/04/22 13:29 Consultations 10/12/22 14:03 ED Decision to Admit Stat Ordered Studies Chest X-Ray 10/12/22 10:08 XR chest 1V portable CLINICAL HISTORY: Chest pain, nonspecific TECHNIQUE: Single frontal radiograph of the chest was obtained. Comparison: Comparison is made to chest radiograph 07/26/2022 FINDINGS: No lines and tubes are seen. Calcified aortic knob is seen. The lungs are clear. No evidence of pleural effusion or pneumothorax. IMPRESSION: No acute chest disease. ACT 112: Negative or not required by law. Electronically signed by: Drew Stringer M.D. 10/12/2022 10:34 AM Chest X-Ray 10/13/22 10:24 XR chest 1V portable HISTORY: Shortness of breath. COMPARISON: Chest 10/12/2022. FINDINGS: The conus is normal in size. No pleural effusions. Emphysema is suggested. There are few bibasilar linear densities suggesting subsegmental atelectasis. No evidence for pulmonary edema. Questionable subtle pleural reflection within the right lung apex is likely due to overlapping soft tissues. A tiny pneumothorax is considered less likely but not entirely excluded. No a cute fractures identified. IMPRESSION: 1. No evidence for pulmonary edema. 2. Emphysema with bibasilar linear densities. This favors subsegmental atelectasis. 3. Questionable subtle pleural reflection within the right lung apex is likely due to overlapping soft tissues. A tiny pneumothorax is considered less likely but not entirely excluded. Follow-up PA and lateral views of the chest can be u sed for further evaluation. ACT 112: Negative or not required by law. Electronically signed by: Shorty Nicole M.D. 10/13/2022 11:55 AM Chest X-Ray 10/13/22 12:46 XR chest 2V PA/lateral HISTORY: Abnormal chest x-ray. f/u prior CXR, ? tiny PTX COMPARISON: Chest 10/13/2022. FINDINGS: A subtle right pleural reflection again suggested. This is likely due to overlying artifact rather than a tiny right pneumothorax. Follow-up chest x- ray in 12 hours can be performed for further evaluation. This is not confirmed on the lateral view. The heart is top normal in size. Emphysema and mild interstitial thickening persists. A few bibasilar linear densities favor subsegmental atelectasis. No new focal lung consolidations to suggest a pneumonia. There is mild central pulmonary vascular congestion without overt edema. There are trace bilateral pleural effusions. IMPRESSION: 1. Mild central pulmonary vascular congestion without overt edema. 2. A subtle right pleural reflection again suggested. This is likely due to overlying artifact rather than a tiny right pneumothorax. Follow-up chest x-ray in 12 hours can be performed for further evaluation. ACT 112: Negative or not required by law. Electronically signed by: Shorty Nicole M.D. 10/13/2022 5:01 PM Chest X-Ray 10/14/22 07:39 XR chest 2V PA/lateral CLINICAL HISTORY: f.u possible PTX COMPARISON STUDY: Chest CT January 08, 2022. Chest radiograph October 13, 2022 at 3:43 PM. FINDINGS: No definite pneumothorax is noted. The possible tiny right apical pneumothorax on prior chest radiographs was probably artifactual. Cardiac mediastinal silhouette is stable. No evidence for overt pulmonary edema. No consolidation to suggest pneumonia. IMPRESSION: No definite pneumothorax. Possible tiny right apical pneumothorax on prior chest radiographs was likely artifactual. ACT 112: Negative or not required by law. Electronically signed by: Hubert Goodwin M.D. 10/14/2022 9:11 AM Hospital Course (1) COPD exacerbation: Severe PFTs in 2019 with FEV1 46% of predicted. FEV1/FVC 55%. Of note, worked in [employer] until ~1994 and retired early, suspect underlying lung disease/likely benefit from pulm in follow up. ?Worsened w/ recent humidity/allergies, reports increased post-nasal drip waking him up at night Had been on 4L on admission Given Azithromycin x 3 days (1 day left at discharge) for COPD exacerbation, solu-medrol IV BID (transitioned to prednisone taper 10mg TID x 2 days, then 10mg BID x 2 days, then 10mg daily x 2 days per supervising provider at [facility]), mucinex bid. Continue usual anoro ellipta Sputum cx pending at discharge BNP checked, elevated 190. ECHO in Nov w/ sclerotic aortic valve w/ trace regurgitation, EF 55-60% Given trace edema/congestion on exam, given lasix 20mg IV x 1 on 10/13 with improvement in breathing. While patient states he has prn lasix at home, not on med rec or outpatient med lists. Appears at one point had been on HCTZ. Discussed with supervising provider and decision to send patient on lasix 40mg PO daily x 2 weeks and close f/u PCP. I placed orders for repeat labs for Tuesday to ensure kidney function remains stable but suspect patient likely will need daily diuretic to maintain volume status. Repeat CXR w/ resolution in likely artifactual finding initially reported as possible tiny PTX Titrated to room air at rest, 2L w/ ambulation per 2step requirement. Rx given to CM and to be arranged prior to discharge. I also messaged his PCP regarding diuretics at discharge/concern for ongoing need. (2) Acute sinusitis: Possible diagnosis and possible explanation for his WBC. Given IV Unasyn, WBC elevation likely from IV methylprednisolone. Remained afebrile Switched to Augmentin at discharge to complete course for sinusitis (3) Hypoxia: Without significant respiratory distress however NOT on OXYGEN at baseline. Prior smoker but has been many years, 1ppd, used to work in [employer], cannot rule out underlying ILD, does have emphysema Nebs/steroids/abx as above, continued encouragement of incentive spirometer, flutter valve. Sputum cx pending at discharge Lasix 20mg IV x 1 on 10/13 as above, planned to continue 40mg PO lasix daily for next to week -- continuation of such pending repeat evals with PCP. Did message prior to dc as above Also could consider f/u allergy/immunology vs pulmonology in follow up. Also of note, suspect some reflux/post-nasal drip. Could be from the sinusitis but increased PPI to BID as well. Rx at dc 2 step prior to dc w/o need for O2 at rest, does need 2L w/ ambulation. Encouraged patient to stay/diuresis/monitoring response but as above he was adamant about discharge today and arrangements made/close follow up encouraged and to return to ER if any issues (4) Chest pain: Exertional chest pain for 3-4 weeks concerning for angina, however troponin negative Recent dobutamine stress echo reassuring on September 20 however if still occurring despite COPD exacerbation improving consider cardiology evaluation. PPI increased to BID -- reported resolution in symptoms, could also have been from tx of his sinusitis/exacerbation as well, however noting improvement w/ lasix as well as above. continuing diuretics at dc as above CXr noted possible R lung apex concerning for tiny PTX not excluded --> repeat imaging w/o evidence for such and suspected artifactual (5) Hypertension: Continued metoprolol (6) Hyperlipidemia: Continued atorvastatin (7) GERD without esophagitis: Increased symptoms on steroids -- increased PPI to BID as above w/ resolution and continued BID at discharge while on steroid taper. Consinder changing his prn omeprazole to once daily scheduled once off the steroid taper if symptoms stable (8) Ischemic cardiomyopathy: Continued metoprolol succinate outpt f/u Plan VTE Prophylaxis - heparin 500 units SQ BID encouraged patient to stay 1 additional night for continued diuresis/titration off oxygen and possible to have no needs at dc if he did this. He declined staying an additional night but agreed to 2 step/O2 2L via NC at discharge/no needs at rest. To have another dose of azithromycin for COPD exacerbation, continue augmentin for sinusitis. PPI BID Also sent rx for lasix 40mg PO daily for diuresis (20mg IV on 10/13 w/ improvement in breathing/wheezing), repeat labs for Tuesday and CLOSE follow up with PCP recommended. Messaged primary care provider of such at discharge/concerns. To call office if any issues/return to ER for any worsening symptoms Total Time Total Time Spent Total Time Spent (In Minutes): 60 Discharge Plan Discharge Items Patient Disposition: Home - Self-Care Reason For Visit: COPD EXACERBATION, HYPOXIA Discharge Diagnosis: COPD exacerbation, Sinusitis Goals: You have been hospitalized for an acute medical problem. During your stay at [facility], we have made an effort to correct the problem that brought you to the hospital while keeping you as comfortable as possible. Medications were used to bring your condition under control and your discharge instructions will include directions for any medications you should take after leaving the hospital. Please make sure you see your Primary Care Provider as part of your follow up plan. Activity: As commented below Non-emergency contact: Primary Care Provider Call non-emergency contact if: you have any medication questions, your symptoms worsen and your pain is concerning for you Follow-up/Referrals: Clif White Jr, MD, [facility] [Physician] - Nissa Belle MD [Primary Care Provider] - 10/21/22 11:30 am Diet: Heart Healthy Ambulatory Orders: Basic Metabolic Panel (Routine) Timeframe: [id number] Location: Determined by Patient Ordered By: Tiffany Lovelace Attending Provider Instructions: You have been hospitalized for a COPD exacerbation and sinus infection. You were treated with antibiotics and supportive care. You were given steroids and are being sent home on a steroid taper 10mg by mouth three times daily for 2 days, then decrease to 10mg by mouth twice daily for 2 days, then decrease to 10mg once daily for two days to complete the taper. You will be continued on protonix twice daily for reflux symptoms. For antibiotics, you have one more day of the azithromycin and will complete a course of Augmentin for your sinusitis for another 5 days, twice daily. We did want to keep you in the hospital an additional night, but you were very adamant about discharge today, and we did a test to see you if you needed any oxygen with ambulation/rest and you need 2 liters of oxygen with activity. You should monitor your levels and alert your doctor if these are persistently less than 88%. You may be able to come off of this as your infection is treated, but in the meantime that is what testing is showing you need. Per discussion with Dr Alegre, you will be sent home on lasix 40mg by mouth ONCE daily at noon- this is a water pill and should help this breathing as well. Please follow up with your heart doctor and primary care THIS UPCOMING WEEK. I have put in for repeat labs to ensure your kidney function stays stable on this. You were previously on hydrochlorothiazide as a water pill and this will work in a similar fashion. You should discuss with primary care about restarting this or continuing any as needed lasix for edema/fluid retention. You should follow up with primary care in 7-10 days to monitor your progress. Please return to the ER with any worsening chest pain, shortness of breath, dizziness, fever, chills, or for any other symptoms concerning for you. Take care! Pending Studies at Discharge: Yes Studies:: Sputum culture Stand-Alone Forms: My [facility], Smoking Cessation Medications and DC Order Prescriptions: New azithromycin 250 mg Tablet 500 mg PO QAM Qty: 2 0RF guaifenesin [Mucinex] 600 mg Tablet Extended Release 12hr 600 mg PO BID Qty: 14 0RF prednisone 10 mg tablet 10 mg PO DIRECTED Qty: 12 0RF Rx Instructions: please take 10mg TID x 2 days, then decrease to 10mg BID x 2 days, then 10mg daily x 2 days to complete course amoxicillin-pot clavulanate 875-125 mg tablet 1 tab PO BID Qty: 10 0RF (DME) Oxygen Home Liters Per Minute See Rx Instructions .ROUTE Qty: 1 0RF Rx Instructions: As directed furosemide [Lasix] 40 mg tablet 40 mg PO DAILY Qty: 14 0RF Rx Instructions: please take at noon Continued Anoro Ellipta 62.5-25 mcg/actuation blister with device See Rx Instructions .ROUTE .COMPLEX Qty: 180 3RF Dose Instruction: INHAL ONE PUFF BY MOUTH DAILY Rx Instructions: INHAL ONE PUFF BY MOUTH DAILY metoprolol succinate [Toprol XL] 25 mg tablet extended release 24 hr 12.5 mg PO DAILY 90 Days Qty: 45 3RF gabapentin 100 mg capsule 200 mg PO PM Qty: 180 1RF atorvastatin 80 mg tablet 80 mg PO HS Qty: 90 3RF finasteride 5 mg tablet 5 mg PO HS Qty: 90 1RF calcium carbonate [Calcium 600] 600 mg calcium (1,500 mg) tablet 600 mg PO DAILY cholecalciferol (vitamin D3) 10 mcg (400 unit) capsule 10 mcg PO DAILY vitamin E (dl, acetate) 1 tab PO DAILY tamsulosin 0.4 mg capsule 0.4 mg PO DAILY Qty: 90 3RF aspirin 81 mg tablet,delayed release (DR/EC) 81 mg PO PM cetirizine 10 mg tablet 10 mg PO PM albuterol sulfate [ProAir HFA] 90 mcg/actuation HFA aerosol inhaler 1 - 2 puff INH Q4 PRN (Reason: sob) Patient Comments: 1-2 PUFFS INH EVERY 4-6 HOURS PRN; Rx Instructions: 1-2 PUFFS INH EVERY 4-6 HOURS PRN; coenzyme Q10 [Co Q-10] 100 mg capsule 200 mg PO PM Changed omeprazole magnesium 20 mg capsule,delayed release(DR/EC) 20 mg PO BID Qty: 60 0RF Discharge Orders: Discharge Order (Routine); Ordered 10/14/22 Ordered By: Tiffany Jeong Admission Data Admit Date/Time: 10/12/22 12:48 Attending Provider: Toño Alegre Admit Provider: Lex Lr Primary Care Provider: Nissa Belle Other Providers: Lex Lr Supervising Physician Co-Signing Physician Notes The patient was seen by me. The chart was reviewed. The onset of his symptoms sound more cardiac than infectious. He is adamant about going home today. He will take Lasix daily until he is seen by his PCP. Case discussed with RC Espinoza. Coding Level of Care Code 75501 INP/OBS DISCH >30 MIN Diagnoses COPD exacerbation J44.1 Acute sinusitis J01.90 Hypoxia R09.02 Chest pain R07.9 Hypertension I10 Hyperlipidemia E78.5 GERD without esophagitis K21.9 Ischemic cardiomyopathy I25.5
--- NOTE | 2022-10-18 09:38 | Coding Query ---
To promote full compliance with coding requirements relating to patient care, provider participation is requested in all cases of mining and quarrying machinery repairer uncertainty. Please assist us with the question(s) below: Coding Question(s): The diagnosis below was documented in the ER, then subsequently fell off all further documentation. Please indicate if it is still a possible diagnosis or ruled out. Physician's Response(s): ACUTE RESPIRATORY FAILURE with Hypoxia - (regarding the Acute Respiratory Failure) ( ) Diagnosed ( ) Ruled out ( x ) Other (please specify) Tiffany Jeong patient MTDD
--- NOTE | 2022-10-18 09:41 | Coding Query ---
CODING QUERY To promote full compliance with coding requirements relating to patient care, provider participation is requested in all cases of weatherization administrator uncertainty. Please assist us with the question(s) below: Coding Question(s): The Discharge Summary documents, "cannot rule out underlying ILD, does have emphysema". Please specify below the meaning of the abbreviation ILD: ( ) Interstitial Lung Disease ( ) Immature Lung Disease ( ) Ischemic leg/limb Disease ( ) Isolated Lactate Deficiency ( x ) Other: Please Specify Tiffany Jeong patient Physician's Response(s): Thank you Serene Scott Principal Diagnosis: "that condition established after study, to be chiefly responsible for occasioning the admission of the patient to the hospital for care." Co-Existing Principal Diagnosis: "when two or more diagnoses equally meet the criteria for principal diagnosis as determined by the circumstances of admission, diagnostic work up, and/or therapy provided, and the Alphabetic Index, Tabular List, or another coding guideline does not provide sequencing direction, any one of the diagnoses may be sequenced first." "When the physician has documented what appears to be a current diagnosis in the body of the record, but has not included the diagnosis in the final diagnostic statement, the physician should be asked whether the diagnosis should be added." ([facility] 2 QTR90. p3-4) SAYRA
--- NOTE | 2022-10-18 09:55 | Coding Query ---
CODING QUERY To promote full compliance with coding requirements relating to patient care, provider participation is requested in all cases of clay mine cutting machine operator uncertainty. Please assist us with the question(s) below: Coding Question(s): The Discharge Summary documents, "cannot rule out underlying ILD, does have emphysema". Please specify below the meaning of the abbreviation ILD: (x ) Interstitial Lung Disease ( ) Immature Lung Disease ( ) Ischemic leg/limb Disease ( ) Isolated Lactate Deficiency ( ) Other: Please Specify Physician's Response(s): Thank you Serene Scott Principal Diagnosis: "that condition established after study, to be chiefly responsible for occasioning the admission of the patient to the hospital for care." Co-Existing Principal Diagnosis: "when two or more diagnoses equally meet the criteria for principal diagnosis as determined by the circumstances of admission, diagnostic work up, and/or therapy provided, and the Alphabetic Index, Tabular List, or another coding guideline does not provide sequencing direction, any one of the diagnoses may be sequenced first." "When the physician has documented what appears to be a current diagnosis in the body of the record, but has not included the diagnosis in the final diagnostic statement, the physician should be asked whether the diagnosis should be added." ([facility] 2 QTR90. p3-4) SAYRA
--- NOTE | 2022-10-18 09:56 | Coding Query ---
To promote full compliance with coding requirements relating to patient care, provider participation is requested in all cases of lieutenant ballistics uncertainty. Please assist us with the question(s) below: Coding Question(s): The diagnosis below was documented in the ER, then subsequently fell off all further documentation. Please indicate if it is still a possible diagnosis or ruled out. Physician's Response(s): ACUTE RESPIRATORY FAILURE with Hypoxia - (regarding the Acute Respiratory Failure) ( ) Diagnosed ( x ) Ruled out ( ) Other (please specify) MTDD
== END 2022-10-14 16:47 | disposition home or self-care (01) | DRG 191 ==
LOC: ED 10:01 → EDINP 12:48 → SUATTDRO 12:48 → 2N 18:45